=== PATIENT | female | born 1965 | race Caucasian/White ===

== ENCOUNTER 2016-08-27 10:51 | Outpatient (RCR) | payer MEDICARE, MEDICAID ==
[~2016-08-27] VITALS: Ht 157.5 cm; Wt 131.3 kg
[~2016-08-27 10:51] MED LIST: AC500T PO; ACHD5005 PO; ALPR1T PO; ARIP10TA2 PO; BSP5T PO; BUSP10TA95 PO; BUTA1CAP17 PO; BUTA1CAP39 PO; BUTA1TAB55 PO; CARI350T27 PO; CLN150C PO; CLON0.5T60 PO; COLE1TAB PO; CYCL10TA9 PO; D50KC PO; DESV100T PO; DESV50TA PO; DICL100G18 TOP; DIHY1SPR; DIPH1TAB25 PO; DIPH25CA79 PO; DULO30CA PO; DZPM2T PO; EST.625T PO; FENT1PAT9 TD; FURO20TA4 PO; FURO40TA4 PO; GABA600T2 PO; GABA800T PO; GABA800T2 PO; GBPN100C PO; HYDR-34 PO; HYDR-3454 PO; HYDR1TAB PO; HYDR1TAB66 PO; HYOS0.1216 PO; HYOS0.1217 PO; IBP800T PO; LD5PT TOP; LIPA1CAP4 PO; METH10TA3 PO; METH20TA PO; MILN1TAB PO; MUPI1OIN5 NS; NAPR-243 PO; NARA2.5T2 PO; NF-ESOM40C PO; NITR-65 PO; OMEP20TA2 PO; ONDA4TAB8 PO; ONDA8TAB13 PO; ONDAN4ODT PO; PHEN37.555 PO; PNT40TEC PO; PREG50C PO; PRM25T PO; PROM12.59 PO; PROM25TA14 PO; PROP120C3 PO; SMTR6KT.5 SQ; SUMA6KIT2; SUMA6NDL SQ; TIZA4TAB3 PO; TIZA4TAB55 PO; TPR100T PO; TPR25T PO; TRM50T PO; VERA180C2 PO
--- OUTSIDE RECORDS SUMMARY | 2016-08-27 10:57 | XMS REPORT | Continuity of Care Document ---
Author Author [facility] Address Unknown Phone Unavailable Support Name Relationship Address Phone , Mayra Barrett ECON Unknown [phone] Active Allergies and Adverse Reactions Allergen Noted Date Severity Reactions Comments Adhesive Tape 06/14/2014 Itching Any adhesive products cause itching,rash and swelling and infection Bactrim 11/16/2012 Nausea And Vomiting, Swelling Ritalin 06/14/2014 Other (See Comments) Heart palpatations Sulfa Antibiotics 11/16/2012 Nausea And Vomiting Tetanus Toxoids 11/16/2012 Swelling Tramadol 06/14/2014 Other (See Comments) Stomach and esophagus ulcers Wellbutrin 06/14/2014 Other (See Comments) Severe migraine and dehydration Current Medications Prescription Sig. Disp. Refills Start End Date Status Date furosemide (LASIX) 20 MG take 1 tablet (20MG) by 0 04/28/20 Active tablet oral route every day 13 take on M, W, FR gabapentin (NEURONTIN) take 1 tablet (600MG) by 0 04/28/20 Active 600 MG tablet oral route 3 times every 13 day promethazine (PHENERGAN) Take 1/2 tablet every 6 30 tablet 1 06/23/20 Active 25 MG tablet hours as needed for nausa 13 esomeprazole (NEXIUM) 40 Take 40 mg by mouth every Active MG capsule morning before breakfast. hydrocodone-acetaminophen Take 1 tablet by mouth Active (NORCO) 5-325 MG every 6 (six) hours as needed. carisoprodol (SOMA) 350 Take 350 mg by mouth 3 Active MG tablet (three) times daily. metoclopramide (REGLAN) Take 10 mg by mouth 3 Active 10 MG tablet (three) times daily. ergocalciferol (VITAMIN Take 50,000 Units by Active D) 05688 UNITS capsule mouth once a week. dihydroergotamine One spray each nostril as 8 mL 2 08/02/20 Active (MIGRANAL) 4 MG/ML nasal needed for headache march 21 spray repeat in 15 mins as needed, do not exceed 6 sprays in 24 hours fentaNYL (DURAGESIC) 25 Place 1 patch onto the Active MCG/HR skin every third day. busPIRone (BUSPAR) 10 MG Take 10 mg by mouth 6 Active tablet (six) times daily. lidocaine (LMX) 4 % cream Apply to affected area 30 g 1 02/28/20 Active BID PRN for pain 15 propranolol (INDERAL LA) TAKE ONE TABLET BY MOUTH 30 capsule 1 Active 80 MG 24 hr capsule DAILY 15 ondansetron (ZOFRAN-ODT) Take 1 tablet (8 mg 30 tablet 2 06/25/20 Active 8 MG disintegrating total) by mouth every 8 15 tablet (eight) hours as needed for Nausea. VOLTAREN 1 % GEL gel APPLY TO AFFECTED AREA 100 g 0 10/28/20 Active FOUR TIMES DAILY 15 methylPREDNIsolone Take 6 tablets po first 21 tablet 0 12/11/19 Active (MEDROL DOSPACK) 4 MG day then decrease by 1 16 tablet tablet daily until finished. lidocaine (LIDODERM) 5 % APPLY ONE PATCH ONCE 30 patch 0 12/12/19 Active DAILY, REMOVE AFTER 12 16 HOURS DIRECTED colestipol (COLESTID) 1 G Take 1 g by mouth 2 (two) Active tablet times daily. duloxetine (CYMBALTA) 60 Take 60 mg by mouth 2 Active MG capsule (two) times daily. omeprazole (PRILOSEC) 40 Take 40 mg by mouth 2 Active MG capsule (two) times daily. SUMAtriptan Succinate INJECT 0.5ML AT ONSET OF 12 mL 1 05/04/20 Active Refill 6 MG/0.5ML SOCT HEADACHE-MAY REPEAT ONCE 16 IN 2 HOURS -MAX OF 6 PER WEEK naratriptan (AMERGE) 2.5 TAKE 1 TABLET BY MOUTH 20 tablet 0 07/27/20 Active MG tablet ONSET OF MIGRAINE MARCH 16 REPEAT IN 4 HOURS IF NEEDED Kkbubhgaaszpa-Ujwhpovrq-N Take 1 capsule by mouth 40 each 0 08/07/20 Active PAP (MIDRIN) 65-100-325 every 8 (eight) hours as 16 MG CAPS needed (for Headache). propranolol (INDERAL LA) TAKE 1 CAPSULE BY MOUTH 30 capsule 2 Active 120 MG 24 hr capsule EVERY DAY 16 butalbital-acetaminophen- TAKE 1 TABLET BY MOUTH 30 tablet 0 01/06/20 08/04/20 Discontin caffeine, FIORICET, EVERY 6 HOURS NEEDED 16 16 ued 50-325-40 mg (FIORICET) FOR HEADACHE per tab propranolol (INDERAL LA) TAKE 1 CAPSULE BY MOUTH 30 capsule 2 08/27/20 Discontin 120 MG 24 hr capsule EVERY DAY 16 16 ued butalbital-acetaminophen- TAKE 1 TABLET BY MOUTH 30 tablet 0 08/04/20 08/07/20 Discontin caffeine (FIORICET) EVERY 6 HOURS NEEDED 16 16 ued 50-325-40 MG per tab FOR HEADACHE Active Problems Problem Noted Date Intractable chronic migraine without aura 08/27/2015 Generalized osteoarthrosis, involving multiple sites Elevated sedimentation rate Myalgia and myositis Most Recent Encounters Date Type Specialty Providers Description 08/27/2016 Refill Neurology Berenice Oneill MD 08/26/2016 Telephone Neurology Valorie Cohen, VALVE MACHINE OPERATOR Question 08/10/2016 Telephone Neurology Valorie Cohen, VALVE MACHINE OPERATOR Clarification On Medication 08/05/2016 Telephone Neurology Luis Fernando Wen MA Question 08/04/2016 Refill Neurology Valorie Cohen, VALVE MACHINE OPERATOR 07/27/2016 [facility], [facility]base Scan 07/27/2016 Refill Neurology Valorie Cohen, VALVE MACHINE OPERATOR 07/22/2016 Office Visit Neurology Valorie Cohen, VALVE MACHINE OPERATOR Intractable chronic migraine without aura and without status migrainosus (Primary Dx); Myalgia and myositis; Generalized osteoarthrosis, involving multiple sites 07/22/2016 Office Visit Neurology Valorie Cohen, VALVE MACHINE OPERATOR Intractable chronic migraine without aura and without status migrainosus (Primary Dx) 06/02/2016 Telephone Neurology Valorie Cohen, VALVE MACHINE OPERATOR Question 05/29/2016 Refill Neurology Berenice Oneill MD Immunizations Name Dates Previously Given Next Due Influenza IIV3 PFree 08/30/2013, 09/08/2012 Influenza TIV (HX thru 08/18/2011 Aug 07 2010) Pneumococcal 02/21/2016, 09/10/2011 Polysaccharide (23-valent) Social History Tobacco Use Types Packs/Day Years Used Date Never Smoker Last Filed Vital Signs Vital Sign Reading Time Taken Blood Pressure 128/80 07/22/2016 2:27 PM CDT Pulse 120 12/24/2015 2:06 PM [facility] [facility] Temperature 36.5 C (97.7 F) 08/27/2015 3:42 PM CDT Respiratory Rate 18 11/16/2012 10:35 AM [facility] [employer] Height 1.575 m (5' 2") 08/27/2015 3:42 PM CDT Weight 134.265 kg (296 lb) 08/27/2015 3:42 PM CDT Body Mass Index 54.13 08/27/2015 3:42 PM CDT Oxygen Saturation - - Plan of Care Date Type Specialty Providers Description 10/21/2016 Appointment Neurology Valorie Cohne, VALVE MACHINE OPERATOR [address] [place] [address] [phone] (Fax) Health Maintenance Due Date Last Done Comments Hepatitis C Screening 1965 Tdap Vaccines 1976 Tetanus Vaccine (Td 1976 Booster) Cervical Cancer Screening 1986 Breast Cancer 07/30/2013 07/30/2011, 07/27/2011 Screening-Mammogram Colon Cancer 2015 Screening-Colonoscopy Influenza Vaccine (#1) 2016 08/30/2013, 09/08/2012, 08/18/2011 Zoster Vaccine 2025 Annual Wellness Visit 2030 Results from Last 3 Months Not on file
[2016-08-27 11:14] VITALS: BP 125/100
== END 2016-11-25 | disposition home or self-care (01) ==
LOC: SDC 10:51
PROVIDERS: ATTEND Internal Medicine
DX: Z45.2 Encounter for adjustment and management of vascular access device (principal)
CPT/HCPCS: 96523

== ENCOUNTER 2017-02-08 13:21 | Outpatient (RCR) | payer MEDICARE, MEDICAID ==
[2017-01-04 13:36] VITALS: BP 122/80
--- OUTSIDE RECORDS SUMMARY | 2017-01-05 08:24 | XMS REPORT | Continuity of Care Document ---
Author Author [facility] Organization [facility] Address Unknown Phone Unavailable Care Team Providers Care Solution Make Up Operator Name Role Phone LEV PEARSON MD PCP Insurance Providers Payer Name Policy Number Subscriber Name Relationship Wps Medicare [id number] Faiza Louis 18 Self / Same As Patient Sara [employer] [id number] Faiza Louis 18 Self / Same As Patient Advance Directives Directive Response Recorded Date/Time Advance Directives No 08/27/16 11:14am Health Care Power of Pipeline Superintendent No 08/27/16 11:14am Organ Donor Yes 08/27/16 11:14am Resuscitation Status Full Code 08/27/16 11:14am Problems Active Problems Medical Problem Onset Date Status Candidiasis of skin Unknown Acute Diarrhea Unknown Acute Intractable diarrhea Unknown Acute Medications Current Home Medications Medication Dose Units Route Directions Days/Qty Instructions Start Date Gabapentin 800 Mg 2,400 Mg Oral Bedtime TAKES 3 (800MG) TABLETS Furosemide (Lasix) 40 Mg 40 Mg Oral Wed, , 02/21/13 Lidocaine 1 Ea 1 Patch Topically Daily as needed for Pain WEARS FOR 12HOURS THEN OFF FOR 12 HOURS, WEARS DURING BEDTIME NEEDED FOR PAIN 10/20/13 Diphenoxylate Hcl/Atropine 1 Each 1 Tab Oral Three Times A Day as needed for Diarrhea 10/21/15 Carisoprodol 350 Mg 350 Mg Oral Three Times A Day as needed for Muscle Spasms 10/21/15 Tizanidine Hcl 4 Mg 8 Mg Oral Twice A Day TAKES 2 (4MG) TABLETS Naratriptan Hcl 2.5 Mg 2.5 Mg Oral As Directed as needed for Migraine 10/21/15 Buspirone Hcl 10 Mg 30 Mg Oral Twice A Day TAKES 3 (10MG) TABLETS Colestipol Hcl 1 Gm 1 Gm Oral Bedtime 10/21/15 Propranolol Hcl 120 Mg 120 Mg Oral Daily 10/21/15 Fentanyl 1 Each 50 Mcg Transderm Every 3 Days 10/21/15 Gabapentin 800 Mg 1,600 Mg Oral Daily TAKES 2 (800MG) TABLETS 10/21/15 Esomeprazole Magnesium 40 Mg 40 Mg Oral Daily 10/21/15 Promethazine Hcl (Phenergan Tablet) 25 Mg 25 Mg Oral Bedtime Lipase/Protease/Amylase 1 Each 24,000 Units Oral Three Times A Day 10/21/15 Ergocalciferol (Vitamin D2) 50,000 Unit 50,000 Units Oral Wednesdays10/21/15 Sumatriptan Succinate 6 Mg/0.5 Ml As Directed as needed for Migraine 10/21/15 Ondansetron 8 Mg 8 Mg Oral Three Times A Day as needed for Nausea Diclofenac Sodium 100 Gm Topically Four Times Daily as needed for Pain 10/21/15 Diphenhydramine Hcl 25 Mg 25 Mg Oral Bedtime as needed for Migraine 10/21/15 Butalbital/Aspirin/Caffeine 1 Each 1 Cap Oral Every 6 Hours as needed for Migraine 10/21/15 Past Home Medications Medication Directions Ordered Status Sumatriptan Succinate 6 Mg/0.5 Ml Ndl.fr.inj, 6 Mg Sub-Q Once May Repeat Once as needed for Migraine 11/21/11 Discontinued Duloxetine Hcl 30 Mg Capsule., 1 Tab Oral Bedtime 11/21/11 Discontinued Gabapentin 600 Mg Tablet, 800 Mg Oral Three Times A Day 11/21/11 Discontinued Gabapentin 100 Mg Cap, 100 Mg Oral Three Times A Day 11/21/11 Discontinued Alprazolam 1 Mg Tablet, 1 Tab Oral Three Times A Day And Prn 11/21/11 Discontinued Phentermine Hcl 37.5 Mg Capsule, 37.5 Mg Oral Daily 11/21/11 Discontinued Tizanidine Hcl 4 Mg Tablet, 4 Mg Oral Three Times A Day as needed for Muscle Spasms 11/21/11 Discontinued Topiramate 25 Mg Tablet, 100 Mg Oral Twice A Day 11/21/11 Discontinued Furosemide (Lasix) 20 Mg Tablet, 2 Each Oral Daily And Prn 11/21/11 Discontinued Promethazine Hcl 12.5 Mg Tablet, 25 Mg Oral Q 6 Prn 11/21/11 Discontinued Butalb/Acetaminophen/Caffeine (Esgic Plus) 1 Each Tablet, 1 - 2 Each Oral Q 4 - 6 Hr Prn 11/22/11 Discontinued Pregabalin 50 Mg Cap, 50 Mg Oral Twice A Day 01/20/12 Discontinued Desvenlafaxine Succinate 100 Mg Tab.sr.24h, 100 Mg Oral Daily 03/31/12 Discontinued Butalb/Acetaminophen/Caffeine (Esgic Plus) 1 Each Tablet, 1 Each Oral Q4hr Prn 06/03/12 Discontinued Topiramate 25 Mg Tab, 100 Mg Oral Twice A Day 06/16/12 Discontinued Diazepam 2 Mg Tab, 2 Mg Oral Four Times Daily 06/17/12 Discontinued Milnacipran Hcl 1 Each Tab.ds.pk, 100 Mg Oral Three Times A Day 11/10/12 Discontinued Dihydroergotamine Mesylate 6 Ml Ethel.pump, 1 Ethel Nasal for Migraine Discontinued Ibuprofen 800 Mg Tab, 800 Mg Oral Give Every 8 Hrs On Schedule as needed 12/21 Discontinued Acetaminophen/Hydrocodone Bitart 1 Each Tablet, 1 - 2 Each Oral Q4hr Prn 03/20 Discontinued Topiramate 100 Mg Tab, 100 Mg Oral Twice A Day 02/21/13 Discontinued Ibuprofen 800 Mg Tab, 800 Mg Oral Every 8HRS as needed 02/21/13 Discontinued Verapamil Hcl (Verelan Sr) 180 Mg Cap24h.pel, 180 Mg Oral Daily 02/21/13 Discontinued Mupirocin Calcium 1 Gm Oint..gm., 0 Nasal Twice A Day 02/22/13 Discontinued Naproxen 500 Mg Tablet, 1 Each Oral Three Times A Day And Prn 04/22/13 Discontinued Estrogens Conjugated 0.625 Mg Tablet, 1 Tab Oral Daily 08/14/13 Discontinued Methylphenidate Hcl 10 Mg Tablet, 10 Mg Oral Twice A Day 08/14/13 Discontinued Methylphenidate Hcl 20 Mg Tablet, 20 Mg Oral Daily 08/14/13 Discontinued Tramadol Hcl 50 Mg Tab, 50 Mg Oral Q4-6HOURS as needed 08/15/13 Discontinued Sumatriptan Succinate 6 Mg/0.5 Ml Kit, 6 Mg Sub-Q Daily as needed for Migraine 08/29/13 Discontinued Hyoscyamine Sulfate (Levsin) 0.125 Mg/Tab Tab.rapdis, 1 - 2 Each Oral Q4hr Prn 08/29/13 Discontinued Nitrofurantoin Macrocrystals 100 Mg Capsule, 1 Each Oral Twice A Day Discontinued Pantoprazole Sodium 40 Mg Tablet.dr, 1 Tab Oral Daily 08/29/13 Discontinued Ondansetron Hcl 4 Mg Tab, 4 Mg Oral Every 4HRS 08/29/13 Discontinued Acetaminophen/Hydrocodone Bitart 1 Each Tablet, 1 Tab Oral Every 8HRS as needed for Pain 10/20/13 Discontinued Omeprazole 20 Mg Tablet.dr, 20 Mg Oral Bedtime 10/20/13 Discontinued Esomeprazole Magnesium 40 Mg Capsule.dr, 40 Mg Oral Daily 10/20/13 Discontinued Desvenlafaxine Succinate 50 Mg Tab.sr.24h, 50 Mg Oral Bedtime 10/20/13 Discontinued Hydrocodone Bit/Acetaminophen 1 Each Tablet, 1-2 Each Oral Every 4HRS as needed for Pain 10/24/13 Discontinued Clindamycin Hcl 150 Mg Cap, 150 Mg Oral Three Times A Day 11/21/13 Discontinued Promethazine Hcl 25 Mg Tab, 25 Mg Oral Bedtime 11/22/13 Discontinued Promethazine Hcl 25 Mg Tab, 25 Mg Oral Every 6 Hours as needed for Nausea Discontinued Acetaminophen 500 Mg Tablet, 500-1000 Mg Oral as needed for Pain 11/22/13 Discontinued Cyclobenzaprine Hcl (Flexeril) 10 Mg Tablet, 10 Mg Oral Every 6 Hours as needed for Muscle Spasms 02/24/14 Discontinued Ondansetron 4 Mg/Udtablet Tab.rapdis, 4 Mg Oral As Needed for Nausea Discontinued Hydrocodone Bit/Acetaminophen 1 Each Tablet, 1-2 Each Oral Q4 - 6H as needed for Pain 04/04/14 Discontinued Buspirone Hcl 5 Mg Tablet, 5 Mg Oral Twice A Day 07/30/14 Discontinued Hyoscyamine Sulfate 0.125 Mg Tab, 1 Each Oral Q6hr Prn as needed for Nausea 10/15/14 Discontinued Butalb/Acetaminophen/Caffeine 1 Each Capsule, 1 Each Oral 10/21/15 Discontinued Social History Social History Problem Response Recorded Date/Time Alcohol Use Denies Use 10/21/2015 1:55am Recreational Drug Use No 10/21/2015 1:55am Recent Foreign Travel No 02/24/2014 2:44am Hospitalization with Isolation Denies 03/01/2014 2:47pm Sexually Transmitted Disease No 10/21/2015 1:55am HIV/AIDS No 10/21/2015 1:55am Do you dip or chew tobacco? No 12/12/2015 10:10am Sexually Transmitted Disease No 10/21/2015 1:55am Hospitalization with Isolation Denies 03/01/2014 2:47pm Hx Sexually Transmitted Disorders No 04/04/2014 11:35am Hospital Discharge Instructions No hospital discharge instructions. Plan of Care Prescriptions See Medication Section Functional Status No functional status results. Allergies, Adverse Reactions, Alerts Allergen Type Severity Reaction Status Last Updated bupropion HCl Allergy Unknown HIVES Active 02/24/14 Sulfa (Sulfonamide Antibiotics) ([id number]) Allergy Mild Active Tetanus Vaccines & Toxoid ([id number]) Adverse Reaction Unknown Active 02/24/14 sulfamethoxazole ([id number]) Allergy Unknown BREAKS OUT Active 02/24/14 Trimethoprim Allergy Unknown BREAKS OUT Active 02/24/14 TAPE Allergy Unknown BREAKS OUT Active 02/24/14 Immunizations No immunization records. Vital Signs Acute Vital Signs Vital Response Date/Time Height 5 ft 2 in Weight 289 lb Body Mass Index 52.9 kg/m^2 Results No known relevant diagnostic tests, laboratory data and/or discharge summary. Procedures No known history of procedures. Encounters Encounter Location Arrival/Admit Date Discharge/Depart Date Attending Provider Discharged Recurring [facility] 08/27/16 10:51am 11:59pm LEV PEARSON MD
[~2017-02-08] VITALS: Ht 157.5 cm; Wt 90.9 kg
== END 2017-04-04 | disposition home or self-care (01) ==
LOC: SDC 13:21
PROVIDERS: ATTEND Internal Medicine
DX: Z45.2 Encounter for adjustment and management of vascular access device (principal)
CPT/HCPCS: 96523

== ENCOUNTER → 2017-04-29 | Outpatient (CLI) | payer MEDICARE, MEDICAID ==
[~2017-04-29] MED LIST changes: -D50KC PO; +ERGO50006 PO
== END ==
LOC: SLEEP 14:00
PROVIDERS: ATTEND Nurse Practitioner
DX: G47.36 Sleep related hypoventilation in conditions classified elsewhere (principal); R06.83 Snoring

== ENCOUNTER → 2017-11-11 | Outpatient (CLI) | payer MEDICARE, MEDICAID ==
--- NOTE | 2017-11-11 18:21 | Diagnostic Imaging Report ---
EXAMINATION: Digital mammogram bilateral screening. INDICATION: Screening. COMPARISON: This study was compared to the prior exams of 07/04/2015 and 05/29/2013. At this time, there are no current complaints. The current study was also evaluated with a Computer Aided Detection (CAD) system. FINDINGS: The breasts do seem smaller than noted on the prior exam. According to the patient's questionnaire, she has lost 145 pounds since the prior study. There are scattered fibroglandular densities in both breasts which could obscure a lesion. Overall, there does not appear to have been any adverse change. There is no primary or secondary sign of malignancy noted. IMPRESSION: There is no evidence of malignancy. ACR BI-RADS Category 1: Negative. Result letter will be mailed to the patient. Note: At least 10% of breast cancer is not imaged by mammography. Dictated by: Dictated on workstation # [id number]
== END ==
LOC: RAD 09:01
PROVIDERS: ATTEND Nurse Practitioner Family
DX: Z12.31 Encounter for screening mammogram for malignant neoplasm of breast (principal)
CPT/HCPCS: 77067

== ENCOUNTER 2018-01-13 05:45 | Outpatient (CLI) | payer MEDICARE, MEDICAID ==
[~2018-01-13] VITALS: Ht 157.5 cm; Wt 90.9 kg
[2018-01-13] MEDS ORDERED: MIDO2.5T PO (10:38)
[2018-01-13] MEDS ORDERED: OXYC-529 PO (10:38)
[2018-01-13] MEDS ORDERED: MIRA50TA PO (10:38)
[2018-01-13] MEDS ORDERED: FENT1PAT57 TD (10:38)
[2018-01-13] MEDS ORDERED: DOXE50CA3 PO (10:38)
[2018-01-13] MEDS ORDERED: OMEP20CA12 PO (10:38)
[2018-01-13] MEDS ORDERED: DULO60CA58 PO (10:38)
[2018-01-13] MEDS ORDERED: PANT40TA3 PO (10:38)
[2018-01-14] MEDS ORDERED: OXYC-197 PO (10:14)
== END 2018-01-13 11:12 ==
LOC: PREOP 05:45
PROVIDERS: ATTEND Surgery
DX: Z01.818 Encounter for other preprocedural examination (principal)

== ENCOUNTER 2018-01-14 08:27 | Day surgery (SDC) | payer MEDICARE, MEDICAID ==
--- NOTE | 2018-01-13 15:47 | History & Physicial ---
History of Present Illness History of Present Illness Reason for visit/HPI to undergo removal of a nonfunctioning port Date of Admission 01/14/18 Date Seen by Provider: Jan 13, 2018 Time Seen by Provider: 15:45 I consulted on this patient on 01/13/18 15:45 Attending Physician Isabel Brady MD Admitting Physician Sin Miranda MD Consult Allergies and Home Medications Allergies Coded Allergies: Sulfa (Sulfonamide Antibiotics) (Verified Allergy, Mild, 01/13/18) adhesive (Verified Allergy, Mild, RASH, 01/13/18) bupropion HCl (Verified Allergy, Unknown, HIVES, 01/13/18) sulfamethoxazole (Verified Allergy, Unknown, BREAKS OUT, 01/13/18) trimethoprim (Verified Allergy, Unknown, BREAKS OUT, 01/13/18) Tetanus Vaccines and Toxoid (Verified Adverse Reaction, Unknown, 01/13/18) Home Medications Doxepin HCl 50 Mg Capsule, 50 MG PO HS, (Reported) Duloxetine HCl 60 Mg Capsule.dr, 60 MG PO BID, (Reported) Fentanyl 1 Each Patch.td72, 25 MCG TD Q72H, (Reported) Midodrine HCl 2.5 Mg Tablet, 2.5 MG PO TID, (Reported) Mirabegron 50 Mg Tab.er.24h, 50 MG PO DAILY, (Reported) Omeprazole 20 Mg Capsule.dr, 20 MG PO BID, (Reported) Oxycodone HCl 5 Mg Tablet, 5 MG PO TID, (Reported) Pantoprazole Sodium 40 Mg Tablet.dr, 40 MG PO DAILY, (Reported) Tizanidine HCl 4 Mg Tablet, 8 MG PO BID, (Reported) TAKES 2 (4MG) TABLETS Patient Home Medication List Home Medication List Reviewed: Yes Past Npsnige-Emvurn-Iyjupt Hx Patient Social History Recent Hopitalizations: No Immunizations Up To Date Tetanus Booster (TDap): Unknown Date of Pneumonia Vaccine: Feb 07, 2016 Date of Influenza Vaccine: Aug 17, 2016 Seasonal Allergies Seasonal Allergies: No Surgeries Yes Respiratory No Reproductive System Hx Reproductive Disorders: No Sexually Transmitted Disease: No HIV/AIDS: No 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 Gastrointestinal Ulcer, Gall Bladder Disease, Irritable Bowel Musculoskeletal Degenerate Disk Disease, Arthritis, Fibromyalgia, Chronic Back Pain HEENT Loss of Vision: Bilateral Hearing Impairment: Denies Psychosocial Behavioral Health Disorders: Anxiety, PTSD, Depression Family Medical History Family Hx: Cancer 03 MOTHER Family history: Allergy 03 MOTHER Family history: Diabetes mellitus 03 FATHER AUNT Family history: Hypertension 03 FATHER 09 BROTHER Family history: Thyroid disorder 03 MOTHER Heart disease 03 FATHER Hypercholesterolemia 03 FATHER 03 MOTHER 09 BROTHER 09 BROTHER 09 BROTHER 09 BROTHER Myocardial infarction GRANDFATHER Constitutional: no symptoms reported EENTM: no symptoms reported Respiratory: no symptoms reported Cardiovascular: no symptoms reported Gastrointestinal: no symptoms reported Genitourinary: no symptoms reported Musculoskeletal: back pain Skin: no symptoms reported Psychiatric/Neurological: Anxiety Physical Exam Vital Signs Capillary Refill : General Appearance: No Apparent Distress Neck: Normal Inspection Respiratory: Lungs Clear Cardiovascular: Regular Rate, Rhythm Neurologic/Psychiatric: Oriented x3 Assessment/Plan Assessment and Plan lady with a nonfunctioning port. Removal under sedation with a local anesthetic Problems: Admission Diagnosis Admission Status: Other ISABEL BRADY MD Jan 13, 2018 3:47 pm
[~2018-01-14] VITALS: Ht 157.5 cm; Wt 90.9 kg
[~2018-01-14 08:27] MED LIST changes: +DOXE50CA3 PO; +DULO60CA58 PO; +FENT1PAT57 TD; +MIDO2.5T PO; +MIRA50TA PO; +OMEP20CA12 PO; +OXYC-529 PO; +PANT40TA3 PO
[2018-01-14] MEDS ORDERED: BUP/EPI 0.5% 1:200,000 (SENSORCAINE) 30 ML VIAL ONE (08:46)
[2018-01-14] MEDS ORDERED: FAMOTIDINE 20MG/2ML IV (PEPCID) IV ONE (09:00)
[2018-01-14] MEDS ORDERED: ONDANSETRON 4 MG/2 ML (SDV) Z0FRAN IV ONE (09:00)
[2018-01-14 09:27] VITALS: BP 135/89
[2018-01-14] MEDS ORDERED: proPOfol 200 MG/20 ML (DIPRIVAN) VIAL IV ONE (09:28)
[2018-01-14] MEDS ORDERED: MIDAZOLAM 2 MG/2 ML (VERSED) VIAL ONE (09:28)
[2018-01-14] MEDS ORDERED: ceFAZolin 2 GM/50 ML PRE-MIX IVPB IV ONE (09:30)
--- NOTE | 2018-01-14 09:33 | Progress Note-Pre Operative ---
Pre-Operative Progress Note H&P Reviewed The H&P was reviewed, patient examined and no changes noted. Date Seen by Provider: Jan 14, 2018 Time Seen by Provider: 09:33 Date H&P Reviewed: Jan 14, 2018 Time H&P Reviewed: 09:33 Pre-Operative Diagnosis: Nonfunctioning port ISABEL BRADY MD Jan 14, 2018 9:33 am
--- NOTE | 2018-01-14 10:13 | Operative Report ---
Operative Report Date of Procedure/Surgery Jan 14, 2018 Surgeon (s) ISABEL BRADY MD Lip And Gate Builder (s): N/A Post-Operative Diagnosis Same Procedure Performed Removal of [id number] Description of Procedure Anesthesia Type: MAC Estimated blood loss (mL): Minimal Specimen(s) collected/removed None Description of the Procedure Indication for procedure: This lady came in to have a nonfunctioning Infuse-a- Port removed. Pump consent was obtained after reviewing the procedure in detail. Description of the procedure: She was placed supine on the operative table and our PRIVATE TUTOR administered sedation, monitoring her vital signs. 2 g of Ceftin were administered intravenously as prophylaxis against wound infection. Left infraclavicular fossa was prepared and draped in the usual sterile manner. Local anesthesia was achieved using 0.5 percent Marcaine with epinephrine. A secondary incision was made along the previous scar and [id number] removed without risking air embolism. Incision was closed using 3-0 Vicryl for the subcutaneous tissue and 4-0 Vicryl for skin, in a subcuticular fashion. She tolerated the procedure well and was taken to the nursing area in stable condition. Findings of the Procedure See op report Allergies and Home Medications Allergies Coded Allergies: Sulfa (Sulfonamide Antibiotics) (Verified Allergy, Mild, 01/13/18) adhesive (Verified Allergy, Mild, RASH, 01/13/18) bupropion HCl (Verified Allergy, Unknown, HIVES, 01/13/18) sulfamethoxazole (Verified Allergy, Unknown, BREAKS OUT, 01/13/18) trimethoprim (Verified Allergy, Unknown, BREAKS OUT, 01/13/18) Tetanus Vaccines and Toxoid (Verified Adverse Reaction, Unknown, 01/13/18) Home Medications Doxepin HCl 50 Mg Capsule, 50 MG PO HS, (Reported) Duloxetine HCl 60 Mg Capsule.dr, 60 MG PO BID, (Reported) Fentanyl 1 Each Patch.td72, 25 MCG TD Q72H, (Reported) Midodrine HCl 2.5 Mg Tablet, 2.5 MG PO TID, (Reported) Mirabegron 50 Mg Tab.er.24h, 50 MG PO DAILY, (Reported) Omeprazole 20 Mg Capsule.dr, 20 MG PO BID, (Reported) Oxycodone HCl 5 Mg Tablet, 5 MG PO TID, (Reported) Pantoprazole Sodium 40 Mg Tablet.dr, 40 MG PO DAILY, (Reported) Tizanidine HCl 4 Mg Tablet, 8 MG PO BID, (Reported) TAKES 2 (4MG) TABLETS Patient Home Medication List Home Medication List Reviewed: Yes ISABEL BRADY MD Jan 14, 2018 10:13 am
[2018-01-14] MEDS ORDERED: OXYC-197 PO (10:14)
--- NOTE | 2018-01-14 10:15 | Discharge Inst-Simple/Standard ---
Discharge Inst-Standard Discharge Medications New, Converted or Re-Newed RX: RX on Chart Patient Instructions/Follow Up Plan of Care/Instructions/FU: Dressings off in 48 hours Activity as Tolerated: Yes Discharge Diet: No Restrictions ISABEL BRADY MD Jan 14, 2018 10:15 am
[2018-01-14] MEDS ORDERED: morphine INJ 10 MG/ML 1ML (SYR OR VIAL) IVP PRN (10:30)
[2018-01-14] MEDS ORDERED: ONDANSETRON 4 MG/2 ML (SDV) Z0FRAN IVP PRN (10:30)
[2018-01-14 10:50] VITALS: BP 135/82
[2018-01-14 11:20] VITALS: BP 121/82
[2018-01-14 11:50] VITALS: BP 117/78
[2018-01-14 12:05] VITALS: BP 117/78
[2018-01-14] MEDS ORDERED: LACTATED RINGERS 1,000 ML IV PRN (14:39)
--- NOTE | 2018-01-14 15:02 | Anesthesia-General Post-Op ---
General Patient Condition Mental Status/LOC: Same as Preop Cardiovascular: Satisfactory Nausea/Vomiting: Absent Respiratory: Satisfactory Pain: Controlled Complications: Absent Post Op Complications Complications None Follow Up Care/Instructions Patient Instructions None needed. Anesthesia/Patient Condition Patient Condition Patient is doing well, no complaints, stable vital signs, no apparent adverse anesthesia problems. No complications reported per nursing. CAIT CHAPMAN CRNA Jan 14, 2018 15:02
--- OUTSIDE RECORDS SUMMARY | 2018-01-16 04:01 | XMS REPORT ---
Author Author LEV PEARSON [facility] Address [address] [place] [address] Care Team Providers Care Traffic Enumerator Name Role Phone LEV PEARSON Unavailable PROBLEMS Type Condition ICD9-CM Code [id number] Code Onset Dates Condition Status SNOMED Code Problem Migraine without aura and without status migrainosus, not intractable G43.009 Active 747669684 Problem IBS (irritable bowel syndrome) K58.9 Active 61459954 Problem Intractable migraine without aura and with status migrainosus G43.011 Active 910617231 Problem History of bariatric surgery Z98.84 Active 222288679 Problem Chronic pain G89.29 Active 96481480 Problem Arthritis M19.90 Active 8141437 Problem Mixed hyperlipidemia E78.2 Active 386851185 Problem Chronic fatigue R53.82 Active 71885924 ALLERGIES Substance Reaction Event Type Date Status Adhesive Tape Unknown Drug Allergy March, Active Tetanus Unknown Drug Allergy March, Active Wellbutrin Unknown Drug Allergy March, Active Sulfamethoxazole-Trimethoprim Unknown Drug Allergy March, Active Heparin Lock Flush Unknown Drug Allergy March, Active Shrimp Unknown Non Drug Allergy March, Active Dust Mite Unknown Non Drug Allergy March, Active Cockroach Feces Unknown Non Drug Allergy March, Active SOCIAL HISTORY Never Assessed PLAN OF CARE Activity Details Follow Up Regular appt Reason: VITAL SIGNS Height 62 in 2017-03-30 Weight 238 lbs 2017-03-30 Temperature 98.0 degrees Fahrenheit 2017-03-30 Heart Rate 78 bpm 2017-03-30 Respiratory Rate 18 2017-03-30 BMI 43.53 kg/m2 2017-03-30 Blood pressure systolic 112 mmHg 2017-03-30 Blood pressure diastolic 78 mmHg 2017-03-30 MEDICATIONS Medication Instructions Dosage Frequency Start Date End Date Duration Status Myrbetriq 50 MG Orally Once a day 1 tablet 24h Active buspirone 10 mg 1 Tablet by Oral route 6 times per day Dec, Active Lomotil 2.5-0.025 MG Orally Four times a day 1 tablet as needed 6h 16 Aug, 2015 Active Tizanidine HCl 4 MG Orally every 8 hrs 2 capsule as needed 8h 30 Sep, 2015 Active Sumavel DosePro 6 mg/0.5 mL inject 6 mg by subcutaneous route once; may be repeated 1 hour after the first dose if headache pain returns or increases in severity; do not exceed 2 doses within 24 hours Nov, Active Amerge 2.5 MG Orally Once a day 1 tablet as needed one time 24h Active Doxepin HCl 50 MG TAKE 1 CAPSULE BY MOUTH AT BEDTIME 30 Active Zofran ODT 8 mg 04 Sep, 2013 Active Cymbalta 60 mg Orally twice a day 1 capsule 12h March, Active Voltaren 1 % 1 Application by Topical route 4 times per day Aug, Active Fentanyl 50 MCG/HR Transdermal every 72 hours 1 patch to skin March, 30 days Active Phenergan 25 MG 1 tablet by Oral route 1 time per day PRN at hs Active Nexium 40 MG Orally Once a day TAKE 1 CAPSULE 24h Active Vitamin D2 50,000 unit take 1 capsule (50,000 unit) by oral route once weekly for 12 weeks Aug, Active Furosemide 20 Orally Once a day prn 2 tablet Active RESULTS No Results PROCEDURES Procedure Date Ordered Result Body Site PHENERGAN (IM) 25 MG (25 MG/ML) March 30, 2017 THER/PROPH/DIAG INJ, SC/IM March 30, 2017 [facility] VISIT ESTABLISHED PATIENT March 30, 2017 TORADOL (IM) 60 MG/2ML (UP TO 15 MG) March 30, 2017 IMMUNIZATIONS Vaccine Route Administration Date Status PHENERGAN (IM) 25 MG (25 MG/ML) IM Intramuscular March 30, 2017 Administered TORADOL (IM) 60 MG/2ML (UP TO 15 MG) IM Intramuscular March 30, 2017 Administered MEDICAL (GENERAL) HISTORY Type Description Date Medical History Sleep Apnea- uses cpap with 7 liters 02 plus addition 2l/nc at night Medical History GERD Medical History Irrital bowel syndrome Medical History Hx rectal fistula Medical History Obesity Medical History Arthritis Medical History Migraines Medical History chronic pain Medical History Muscle spasms Medical History depression Medical History Anxiety Medical History Edema Medical History Gastric Sleeve Surgical History Appendectomy 1976 Surgical History Ovarian cyst removal with appendix 1976 Surgical History bladder tie up at [facility] 09/09/2011 Surgical History Tubal ligation 04/2004 Surgical History Hysterectomy 09/09/2011 Surgical History Gastric Sleeve 02/2016 Hospitalization History Past surgeries Hospitalization History Dehydration/Observation 10/2015
--- OUTSIDE RECORDS SUMMARY | 2018-01-16 04:01 | XMS REPORT | Clinical Summary ---
Author Author [facility] Organization [facility] Address Unknown Phone Unavailable Care Team Providers Care Staff Climate Scientist Name Role Phone Logan Brandon MD Unavailable Valorie Cohen WARP SPLITTER Unavailable Sin Miranda MD PP Allergies Active Allergy Reactions Severity Noted Date Comments Adhesive Tape Itching 06/14/2014 Any adhesive products cause itching,rash and swelling and infection Bactrim Nausea And Vomiting, 11/16/2012 Swelling Methylphenidate Other (See Comments) 06/14/2014 Heart palpatations Sulfa Antibiotics Nausea And Vomiting 11/16/2012 Tetanus Toxoids Swelling 11/16/2012 Tramadol Other (See Comments) 06/14/2014 Stomach and esophagus ulcers Bupropion Other (See Comments) 06/14/2014 Severe migraine and dehydration Current Medications Prescription Sig. Disp. Refills Start End Date Status Date ergocalciferol (VITAMIN Take 50,000 Units by Active D) 59172 UNITS capsule mouth once a week. Reported on 09/16/2016 fentaNYL (DURAGESIC) 25 Place 1 patch onto the Active MCG/HR skin every third day. Reported on 09/16/2016 busPIRone (BUSPAR) 10 MG Take 10 mg by mouth 6 Active tablet (six) times daily. Reported on 09/16/2016 duloxetine (CYMBALTA) 60 Take 60 mg by mouth 2 Active MG capsule (two) times daily. diphenoxylate-atropine Take 1 tablet by mouth 4 Active (LOMOTIL) 2.5-0.025 MG (four) times daily as per tablet needed for Diarrhea. mirabegron (MYRBETRIQ) 50 Take 50 mg by mouth Active MG TB24 daily. tiZANidine (ZANAFLEX) 4 Take 4 mg by mouth every Active MG tablet 6 (six) hours as needed (muscle spasms). ondansetron (ZOFRAN-ODT) TAKE 1 TABLET UNDER 30 tablet 3 11/19/19 Active 8 MG disintegrating TONGUE EVERY 6 HOURS 17 tablet NEEDED FOR NAUSEA cycloSPORINE (RESTASIS) Place 1 drop into both Active 0.05 % ophthalmic eyes 2 (two) times daily. emulsion VOLTAREN 1 % gel APPLY TO AFFECTED AREA 100 g 0 06/15/20 Active FOUR TIMES DAILY 17 omeprazole (PRILOSEC) 40 Take 40 mg by mouth 2 Active MG capsule (two) times daily. metoclopramide (REGLAN) Take 10 mg by mouth 3 Active 10 MG tablet (three) times daily. SUMAtriptan (IMITREX) 6 INJECT 0.5ML AT ONSET OF 0.5 mL 1 10/05/20 Active MG/0.5ML injection HEADACHE-MAY REPEAT ONCE 17 IN 2 HOURS -MAX OF 6 PER WEEK naratriptan (AMERGE) 2.5 TAKE 1 TABLET BY MOUTH AT 20 tablet 1 Active MG tablet ONSET OF MIGRAINE -MARCH 24 REPEAT IN 4 HOURS IF NEEDED Active Problems Problem Noted Date Intractable chronic migraine without aura 08/27/2015 Generalized osteoarthrosis, involving multiple sites Elevated sedimentation rate Myalgia and myositis Encounters Date Type Specialty Care Team Description 12/15/2017 [facility] 12/09/2017 Office Visit Logan Brandon MD Chronic migraine (Primary Dx) from Last 3 Months Immunizations Name Dates Previously Given Next Due Influenza IIV3 PFree 08/30/2013, 09/08/2012 Influenza TIV (HX thru 08/18/2011 Aug 07 2010) Pneumococcal 02/21/2016, 09/10/2011 Polysaccharide (23-valent) Family History Medical History Relation Name Comments Other Other Family History Comments - Hx of ovarian cancer: Maternal aunt, Hx of endometrial cancer: Paternal grandmother Relation Name Status Comments Other Social History Tobacco Use Types Packs/Day Years Used Date Never Smoker Sex Assigned at Date Recorded Not on file Last Filed Vital Signs Vital Sign Reading Time Taken Blood Pressure 105/70 09/16/2016 12:03 PM AREA SALES MANAGER Pulse 120 12/24/2015 2:06 PM AREA SALES MANAGER Temperature 36.5 C (97.7 F) 08/27/2015 3:42 PM CDT Respiratory Rate 18 11/16/2012 10:35 AM AREA SALES MANAGER Oxygen Saturation - - Inhaled Oxygen - - Concentration Weight 105.9 kg (233 lb 8 oz) 09/16/2016 12:03 PM AREA SALES MANAGER Height 157.5 cm (5' 2") 08/27/2015 3:42 PM CDT Body Mass Index 42.71 09/16/2016 12:03 PM AREA SALES MANAGER Plan of Treatment Date Type Specialty Care Team Description 03/03/2018 Office Visit Logan Brandon MD [address] [place] [address] Health Maintenance Due Date Last Done Comments Hepatitis C Screening 1965 DTaP,Tdap,and Td Vaccines 1984 (1 - Tdap) CERVICAL CANCER SCREENING 1986 Breast Cancer 2015 07/30/2011, 07/27/2011 Screening-Mammogram Colon Cancer Screening 2015 Influenza Vaccine (#1) 2017 08/30/2013, 09/08/2012, 08/18/2011 Results Not on filefrom Last 3 Months
--- OUTSIDE RECORDS SUMMARY | 2018-01-16 04:01 | XMS REPORT | Encounter Summary ---
Author Author [facility] Address Unknown Phone Unavailable Care Team Providers Care Staff Services Manager Name Role Phone Logan Brandon MD Unavailable Valorie Cohen LEGAL SECRETARY RECEPTIONIST Unavailable Sin Miranda MD PCP Encounter Details Date Type Department Care Team Description 12/15/2017 [facility] MULTIPLE TESTS Link, Onbase Scan [place], [place] Social History Tobacco Use Types Packs/Day Years Used Date Never Smoker Sex Assigned at Date Recorded Not on file as of this encounter Plan of Treatment Date Type Specialty Care Team Description 03/03/2018 Office Visit Neurology Logan Brandon MD [address] [place] [address] as of this encounter Visit Diagnoses Not on filein this encounter
--- OUTSIDE RECORDS SUMMARY | 2018-01-16 04:01 | XMS REPORT | Encounter Summary ---
Author Author [facility] Address Unknown Phone Unavailable Care Team Providers Care Customer Relations Coordinator Name Role Phone Logan Brandon MD Unavailable Valorie Cohen LUNCH TRUCK OPERATOR Unavailable Sin Miranda MD PCP Reason for Visit * Reason Comments Botox Injection Encounter Details Date Type Department Care Team Description 12/09/2017 Office Visit [facility] Neurology Logan Brandon MD Chronic migraine (Primary [address]) [place] [address] [place], [place] [address] Social History Tobacco Use Types Packs/Day Years Used Date Never Smoker Sex Assigned at Date Recorded Not on file as of this encounter Instructions * Patient Instructions - Kassy Acosta, GRAPHIC DESIGN ASSISTANT - 12/09/2017 1:50 PM [facility] Botox Post-Treatment Information 1. Do not massage or apply pressure on the treated area for 4 hours after treatment since Botox may migrate to areas of undesirable effectiveness. 2. Do not lie down for 4 hours after treatment. This is to avoid the risk of pressure on the treated areas. 3. Avoid rigorous exercise/activities, extensive heat (e.g. sauna, hot tub, tanning), sun exposure and alcoholic beverages for the first 24 hours after treatment. This may cause temporary redness, swelling, and/or itching at the injection sites. Feel free to shower and go about most other daily activities. 4. You may experience a mild headache after Botox. Should this occur, we recommend you avoid aspirin or aspirin-containing products. You may opt instead to use acetaminophen, and/or cool compresses. Cold compresses may be used 10 minutes on and 10 minutes off to reduce swelling. This can be done 2-3 times per day during the first 1-2 days if needed. 5. Note that any bumps or mejia will go away in a few hours. If you develop a bruise, it will resolve like any other bruises you may have had, in about a week. There is occasionally some mild pain, swelling, itching or redness at the site of injection, similar to most other types of injections. Redness may last for 1-2 days, rarely longer. You may apply cool compresses or take acetaminophen to reduce swelling or discomfort. If you change your Insurance, please let the household manager and the nurse know immediately. We will have to re-certify the Botox treatments with the new Insurance to make sure it is still a covered service with them. Please call the office with any questions or concerns in this encounter Progress Notes * Logan Brandon MD - 12/09/2017 2:30 PM STEEL CRANE OPERATOR Formatting of this note may be different from the original. [facility] [address] [facility] [address] 12/09/2017 Patient: Niki Louis : 1965 Date: 12/09/2017 Subjective Niki Louis is a 52 y.o. female who Chief Complaint Patient presents with Botox Injection Pt is here for her 16 th Botox injection. Patient is here for her 16th series of injections for chronic migraine. Preauthorization has been obtained and informed consent was obtained with instructions related to both the local and remote potential effects of Botox injectections. Local effects such as ptosis and more remote effects such as difficulty swallowing, breathing, and even generalized weakness were discussed. Informed consent was obtained through Jovana Acosta and signed by the patient. The 31 prescribed sites for Botox injections were prepared with a local alcohol wipe. Each of these sites were injected with 5 units for a total of 155 units of Allergan brand onabotulinum toxin A. The patient had no significant adverse effects related to these 31 injections through the patient did have some local oozing of the forehead though nothing that was an adverse reaction. The patient will schedule for repeat series of injections in about 13 weeks. She will contact me related to any adverse effects. The revised Allergan Botox protocol for chronic migraine was used. As 155 units were needed, the remaining 45 units were wasted in syringes in a designated sharps box. No problem-specific Assessment & Plan notes found for this encounter. Active Problem List Diagnosis Intractable chronic migraine without aura [G43.719] Generalized osteoarthrosis, involving multiple sites [M15.9] Elevated sedimentation rate [R70.0] Myalgia and myositis [[id number]] Outpatient Prescriptions Marked as Taking for the 12/09/17 encounter (Office Visit ) with Logan Brandon MD Medication Sig Note busPIRone (BUSPAR) 10 MG tablet Take 10 mg by mouth 6 (six) times daily. Reported on 09/16/2016 cycloSPORINE (RESTASIS) 0.05 % ophthalmic emulsion Place 1 drop into both eyes 2 (two) times daily. diphenoxylate-atropine (LOMOTIL) 2.5-0.025 MG per tablet Take 1 tablet by mouth 4 (four) times daily as needed for Diarrhea. duloxetine (CYMBALTA) 60 MG capsule Take 60 mg by mouth 2 (two) times daily. ergocalciferol (VITAMIN D) 68447 UNITS capsule Take 50,000 Units by mouth once a week. Reported on 09/16/2016 fentaNYL (DURAGESIC) 25 MCG/HR Place 1 patch onto the skin every third day. Reported on 09/16/2016 02/12/2015: She is taking 50 mg metoclopramide (REGLAN) 10 MG tablet Take 10 mg by mouth 3 (three) times daily. mirabegron (MYRBETRIQ) 50 MG TB24 Take 50 mg by mouth daily. naratriptan (AMERGE) 2.5 MG tablet TAKE 1 TABLET BY MOUTH AT ONSET OF MIGRAINE -MAY REPEAT IN 4 HOURS IF NEEDED omeprazole (PRILOSEC) 40 MG capsule Take 40 mg by mouth 2 (two) times daily. ondansetron (ZOFRAN-ODT) 8 MG disintegrating tablet TAKE 1 TABLET UNDER TONGUE EVERY 6 HOURS NEEDED FOR NAUSEA SUMAtriptan (IMITREX) 6 MG/0.5ML injection INJECT 0.5ML AT ONSET OF HEADACHE -MAY REPEAT ONCE IN 2 HOURS -MAX OF 6 PER WEEK tiZANidine (ZANAFLEX) 4 MG tablet Take 4 mg by mouth every 6 (six) hours as needed (muscle spasms). VOLTAREN 1 % gel APPLY TO AFFECTED AREA FOUR TIMES DAILY Allergies Allergen Reactions Adhesive Tape Itching Any adhesive products cause itching,rash and swelling and infection Bactrim Nausea And Vomiting and Swelling Ritalin [Methylphenidate] Other (See Comments) Heart palpatations Sulfa Antibiotics Nausea And Vomiting Tetanus Toxoids Swelling Tramadol Other (See Comments) Stomach and esophagus ulcers Wellbutrin [Bupropion] Other (See Comments) Severe migraine and dehydration Objective There were no vitals taken for this visit. Patient was instructed of the local and remote potential side effects of Botox. These can be, but not limited to breathing difficulties, generalized weakness, swallowing difficulty, ptosis and pain. Patient vocalized understanding. After informed consent, discussion of risks benefits and side effects and a timeout was performed the patient received the following injections. 5 units per injection is otherwise specified. Botox Lot number:[id number] Expiration date: 06/2020 [place] Lot number:[id number] Expiration date: 09/07/2020 Total units injected 155. Wasted 45. Allergen protocol of Botox for chronic migraine was followed for injections. 31 total sites were injected. Gen. alert and appropriate. Insulation Hoseman bilateral, 5 units Procerus, 5 units Frontalis bilateral, 10 units Temporalis bilateral, 20 units Occipitalis bilateral, 15 units Cervical paraspinals, bilateral, 10 units Upper trapezius bilateral, 15 units Minimal oozing of the frontal region with no significant adverse reaction. Tolerated well. Upper trapezius bilateral, 15 units Minimal oozing of the frontal region with no significant adverse reaction. Tolerated well. Procedure codes: [id number], per unit [id number] muscle migraine Assessment/Plan 1. Chronic migraine - onabotulinumtoxinA (BOTOX) injection 155 Units; Inject 155 Units into the skin once. Patient tolerated procedure well. No complaints or significant discomfort. Patient will call if any questions or problems. We will repeat injections in 12 weeks. Proper post procedure instructions were given along with a handout. Patient understands and questions answered. Return in about 12 weeks (around 03/03/2018). Logan Brandon MD Electronically Signed 12/13/2017 10:38 AM Division of [email or web address] 4 of 4 in this encounter Plan of Treatment Date Type Specialty Care Team Description 03/03/2018 Office Visit Neurology Logan Brandon MD [address] [place] [address] as of this encounter Visit Diagnoses Diagnosis Chronic migraine - Primary Chronic migraine without aura, without mention of intractable migraine without mention of status migrainosus Administered Medications Medication Order MAR Action Action Date Dose Rate Site onabotulinumtoxinA (BOTOX) injection 155 Given by 12/09/2017 155 Units Other Units Other 13:50 STEEL CRANE OPERATOR 155 Units ONCE, Intradermal, Shalini 12/09/17 at 1415, For 1 dose, Is this medication supplied by the patient? No in this encounter
--- OUTSIDE RECORDS SUMMARY | 2018-01-16 04:02 | XMS REPORT ---
Author Author LEV PEARSON Organization [employer] Address Unknown Phone Unavailable Care Team Providers Care Aircraft Maintenance Instructor Name Role Phone LEV PEARSON CP Unavailable Allergies No Known Allergies Problems Problem Type Condition Code Onset Dates Condition Status Problem Unspecified myalgia and myositis 729.1 Active Problem Vitamin D deficiency 268.9 Active Problem Overactive bladder 596.51 Active Problem IBS (irritable bowel syndrome) K58.9 Active Problem Migraine, unspecified without mention of intractable migraine without mention of status migrainosus 346.90 Active Problem Morbid obesity 278.01 Active Problem Lumbar polyradiculopathy M54.16 Active Problem Unspecified arthropathy, site unspecified 716.90 Active Medications Medication Code System Code Instructions Start Date End Date Status Dosage Duragesic NDC 0 50 mcg/hr topical every 72 hours January 09, 2015 1 PATCH Results No Known Results Summary Purpose [employer] Submission
--- OUTSIDE RECORDS SUMMARY | 2018-01-16 04:02 | XMS REPORT ---
Author Author LEV PEARSON [facility] [employer] Address Unknown Phone Unavailable Care Team Providers Care Speech Therapist Name Role Phone LEV PEARSON CP Unavailable Allergies No Known Allergies Problems Problem Type Condition Code Onset Dates Condition Status Problem Unspecified myalgia and myositis 729.1 Active Assessment Chronic pain G89.29 Active Problem Vitamin D deficiency 268.9 Active [...]
--- OUTSIDE RECORDS SUMMARY | 2018-01-16 04:02 | XMS REPORT ---
Author Author LEV PEARSON [facility] [employer] Address Unknown Phone Unavailable Care Team Providers Care Shape Hand Name Role Phone LEV PEARSON CP Unavailable [...] Active Problem Morbid obesity 278.01 Active Problem Unspecified neuralgia, neuritis, and radiculitis 729.2 Active Problem Unspecified arthropathy, site unspecified 716.90 Active Medications Medication Code System Code Instructions Start Date End Date Status Dosage Duragesic NDC 0 50 mcg/hr topical every 72 hours January 09, 2015 1 PATCH Results No Known Results Summary Purpose [employer] Submission
--- OUTSIDE RECORDS SUMMARY | 2018-01-16 04:02 | XMS REPORT ---
Author Author LEV PEARSON [facility] [employer] Address Unknown Phone Unavailable Care Team Providers Care Svp Name Role Phone LEV PEARSON CP Unavailable [...]
--- OUTSIDE RECORDS SUMMARY | 2018-01-16 04:02 | XMS REPORT ---
Author Author LEV PEARSON [facility] [employer] Address Unknown Phone Unavailable Care Team Providers Care Catalyst Operator Gasoline Name Role Phone LEV PEARSON CP Unavailable Allergies No Known Allergies Problems Problem Type Condition Code Onset Dates Condition Status Problem Unspecified myalgia and myositis 729.1 Active Problem Overactive bladder 596.51 Active Problem Unspecified neuralgia, neuritis, and radiculitis 729.2 Active Problem Vitamin D deficiency 268.9 Active Problem Migraine, unspecified without mention of intractable migraine without mention of status migrainosus 346.90 Active Problem Morbid obesity 278.01 Active Problem Other abnormal glucose 790.29 Active Problem Unspecified arthropathy, site unspecified 716.90 Active Medications Medication Code System Code Instructions Start Date End Date Status Dosage Lomotil [facility] [address]-85 2.5-0.025 MG Orally Four times a day Aug 23, 2015 1 tablet as needed Results No Known Results Summary Purpose [employer] Submission
--- OUTSIDE RECORDS SUMMARY | 2018-01-16 04:02 | XMS REPORT ---
Author Author LEV PEARSON Organization [employer] Address Unknown Phone Unavailable Care Team Providers Care Golf Shoe Spike Assembler Name Role Phone LEV PEARSON CP Unavailable [...]
--- OUTSIDE RECORDS SUMMARY | 2018-01-16 04:02 | XMS REPORT ---
Author Author LEV PEARSON [facility] [employer] Address Unknown Phone Unavailable Care Team Providers Care Felt Hanger Name Role Phone LEV PEARSON CP Unavailable [...] Instructions Start Date End Date Status Dosage Myrbetriq [facility] [address]-21 50 MG Orally Once a day 1 tablet Results No Known Results Summary Purpose [employer] Submission
--- OUTSIDE RECORDS SUMMARY | 2018-01-16 04:02 | XMS REPORT ---
Author Author LEV PEARSON Organization [employer] Address Unknown Phone Unavailable Care Team Providers Care Automotive Product Engineer Name Role Phone LEV PEARSON CP Unavailable [...] Unspecified arthropathy, site unspecified 716.90 Active Medications No Known Medications Results No Known Results Summary Purpose [employer] Submission
--- OUTSIDE RECORDS SUMMARY | 2018-01-16 04:03 | XMS REPORT ---
Author Author LEV PEARSON [facility] eClinicalWorks Address Unknown Phone Unavailable Care Team Providers Care Warehouse Shipper Name Role Phone LEV PEARSON CP Unavailable Allergies No Known Allergies Problems Problem Type Condition ICD-9 Code Onset Dates Condition Status Problem Unspecified myalgia and myositis 729.1 Active Problem Migraine, unspecified without mention of intractable migraine without mention of status migrainosus 346.90 Active Problem Morbid obesity 278.01 Active Problem Unspecified neuralgia, neuritis, and radiculitis 729.2 Active Problem Unspecified hereditary and idiopathic peripheral neuropathy 356.9 Active Problem Overactive bladder 596.51 Active Problem Unspecified arthropathy, site unspecified 716.90 Active Problem 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
--- OUTSIDE RECORDS SUMMARY | 2018-01-16 04:03 | XMS REPORT ---
Author Author LEV PEARSON [facility] Address [address] [place] [address] Care Team Providers Care Wax Specialist Name Role Phone LEV PEARSON Unavailable PROBLEMS Type Condition ICD9-CM Code [id number] Code Onset Dates Condition Status SNOMED Code Problem Migraine without aura and without status migrainosus, not intractable G43.009 Active 776816280 Problem IBS (irritable bowel syndrome) K58.9 Active 17836506 Problem Intractable migraine without aura and with status migrainosus G43.011 Active 171674866 Problem History of bariatric surgery Z98.84 Active 789367028 Problem Chronic pain G89.29 Active 51195767 Problem Arthritis M19.90 Active 9573294 Problem Mixed hyperlipidemia E78.2 Active 688513426 Problem Chronic fatigue R53.82 Active 82035377 ALLERGIES No Information SOCIAL HISTORY Never Assessed PLAN OF CARE VITAL SIGNS MEDICATIONS Unknown Medications RESULTS Name Result Date Reference Range VITAMIN B1 (THIAMINE) 2017-01-26 Vit. B1, Whole Blood TNP Request Problem TNP TSH W/ FREE T4 2017-01-26 TSH 1.570 0.450-4.500 T4,Free(Direct) 0.85 0.82-1.77 IRON + TIBC 2017-01-26 Iron Bind.Cap.(TIBC) 360 250-450 UIBC 268 131-425 Iron, Serum 92 27-159 Iron Saturation 26 15-55 VITAMIN B12 2017-01-26 Vitamin B12 638 211-946 FOLATE (FOLIC ACID) 2017-01-26 Folate (Folic Acid), Serum 16.8 >3.0 CBC 2017-01-26 WBC 9.5 3.4-10.8 RBC 4.75 3.77-5.28 Hemoglobin 14.1 11.1-15.9 Hematocrit 42.9 34.0-46.6 MCV 90 79-97 MCH 29.7 26.6-33.0 MCHC 32.9 31.5-35.7 RDW 13.1 12.3-15.4 Platelets 344 150-379 Neutrophils 44 Lymphs 48 Monocytes 5 Eos 3 Basos 0 Neutrophils (Absolute) 4.1 1.4-7.0 Lymphs (Absolute) 4.5 0.7-3.1 Monocytes(Absolute) 0.5 0.1-0.9 Eos (Absolute) 0.2 0.0-0.4 Baso (Absolute) 0.0 0.0-0.2 Immature Granulocytes 0 Immature Grans (Abs) 0.0 0.0-0.1 VITAMIN D, 25-H 2017-01-26 Vitamin D, 25-Hydroxy 33.8 30.0-100.0 LIPID PANEL 2017-01-26 Cholesterol, Total 215 100-199 Triglycerides 108 0-149 HDL Cholesterol 64 >39 VLDL Cholesterol Marbin 22 5-40 LDL Cholesterol Calc 129 0-99 CMP 2017-01-26 Glucose, Serum 99 65-99 BUN 14 6-24 Creatinine, Serum 0.66 0.57-1.00 eGFR If NonAfricn Am 103 >59 eGFR If Africn Am 118 >59 BUN/Creatinine Ratio 21 9-23 Sodium, Serum 142 134-144 Potassium, Serum 4.3 3.5-5.2 Chloride, Serum 100 96-106 Carbon Dioxide, Total 24 18-29 Calcium, Serum 9.3 8.7-10.2 Protein, Total, Serum 7.4 6.0-8.5 Albumin, Serum 3.9 3.5-5.5 Globulin, Total 3.5 1.5-4.5 A/G Ratio 1.1 1.2-2.2 Bilirubin, Total 0.3 0.0-1.2 Alkaline Phosphatase, S 114 39-117 AST (SGOT) 16 0-40 ALT (SGPT) 15 0-32 PROCEDURES Procedure Date Ordered Result [facility] VENIPUNCT, ROUTINE* January 26, 2017 IMMUNIZATIONS No Known Immunizations MEDICAL (GENERAL) HISTORY Type Description Date Medical [...] 1976 Surgical History bladder tie up at [facility] 09/09/2011 Surgical History Tubal ligation 04/2004 Surgical History Hysterectomy 09/09/2011 Surgical History Gastric Sleeve 02/2016 Hospitalization History Past surgeries Hospitalization History Dehydration/Observation 10/2015
--- OUTSIDE RECORDS SUMMARY | 2018-01-16 04:03 | XMS REPORT ---
Author Author LEV PEARSON [facility] eClinicalWorks Address Unknown Phone Unavailable Care Team Providers Care Disaster Recovery Consultant Name Role Phone LEV PEARSON CP Unavailable [...]
--- OUTSIDE RECORDS SUMMARY | 2018-01-16 04:03 | XMS REPORT ---
Author Author LEV PEARSON [facility] Address [address] [place] [address] Care Team Providers Care Barrel Painter Name Role Phone LEV PEARSON Unavailable PROBLEMS Type Condition ICD9-CM Code [id number] Code Onset Dates Condition Status SNOMED Code Problem Migraine without aura and without status migrainosus, not intractable G43.009 Active 883484007 Problem IBS (irritable bowel syndrome) K58.9 Active 97333610 Problem Intractable migraine without aura and with status migrainosus G43.011 Active 382184591 Problem History of bariatric surgery Z98.84 Active 093668446 Problem Chronic pain G89.29 Active 86100542 Problem Arthritis M19.90 Active 9248692 Problem Mixed hyperlipidemia E78.2 Active 661081686 Problem Chronic fatigue R53.82 Active 33856505 ALLERGIES Unknown Allergies SOCIAL HISTORY No smoking Hx information available PLAN OF CARE VITAL SIGNS MEDICATIONS Unknown Medications RESULTS No Results PROCEDURES No Known procedures IMMUNIZATIONS No Known Immunizations
--- OUTSIDE RECORDS SUMMARY | 2018-01-16 04:03 | XMS REPORT ---
Author Author LEV PEARSON [facility] eClinicalWorks Address Unknown Phone Unavailable Care Team Providers Care Community Mental Health Social Worker Name Role Phone LEV PEARSON CP Unavailable [...]
--- OUTSIDE RECORDS SUMMARY | 2018-01-16 04:03 | XMS REPORT ---
Author Author LEV PEARSON [facility] eClinicalWorks Address Unknown Phone Unavailable Care Team Providers Care Relief Pilot Name Role Phone LEV PEARSON CP Unavailable [...]
--- OUTSIDE RECORDS SUMMARY | 2018-01-16 04:03 | XMS REPORT ---
Author Author LEV PEARSON Organization eClinicalWorks Address Unknown Phone Unavailable Care Team Providers Care Timber Feller Name Role Phone LEV PEARSON CP Unavailable [...]
--- OUTSIDE RECORDS SUMMARY | 2018-01-16 04:04 | XMS REPORT ---
Author Author LEV PEARSON Organization eClinicalWorks Address Unknown Phone Unavailable Care Team Providers Care Classroom Coordinator Name Role Phone LEV PEARSON CP Unavailable [...]
--- OUTSIDE RECORDS SUMMARY | 2018-01-16 04:04 | XMS REPORT ---
Author LEV Krishna [facility] eClinicalWorks Address Unknown Phone Unavailable Care Team Providers Care Audio/Video Engineer Name Role Phone LEV PEARSON CP Unavailable Allergies, Adverse Reactions, Alerts Substance Reaction Event Type Adhesive Tape Info Not Available Drug Allergy Wellbutrin Info Not Available Drug Allergy Heparin Lock Flush Info Not Available Drug Allergy Bactrim severe yeast infection Drug Allergy Shrimp Info Not Available Non Drug Allergy Dust Mite Info Not Available Non Drug Allergy Cockroach Feces Info Not Available Non Drug Allergy Problems Problem Type Condition Code Onset Dates Condition Status Assessment Encounter for immunization Z23 Active Problem Unspecified myalgia and myositis 729.1 Active Assessment Diarrhea R19.7 Active Assessment IBS (irritable bowel syndrome) K58.9 Active Problem Vitamin D deficiency 268.9 Active [...] Instructions Start Date End Date Status Dosage Phenergan [facility] 17286110599 25 MG 1 tablet by Oral route 1 time per day PRN at hs Gabapentin ND 60292096413 800 MG Orally 5 times a day 1 tablet Duragesic NDC 0 50 mcg/hr topical every 72 hours January 09, 2015 1 PATCH Nexium [facility] [address]-51 40 MG Orally Once a day TAKE 1 CAPSULE Metoclopramide HCl ND 21000038418 10 MG TAKE ONE TABLET BY MOUTH THREE TIMES DAILY - TAKE BEFORE MEALS buspirone NDC 0 10 mg Dec 21, 2014 1 Tablet by Oral route 6 times per day Sumavel DosePro [facility] [address]-03 6 mg/0.5 mL Dec 08, 2011 inject 6 mg by subcutaneous route once; may be repeated 1 hour after the first dose if headache pain returns or increases in severity; do not exceed 2 doses within 24 hours Vitamin D2 [facility] [address] 50,000 unit Aug 17, 2014 take 1 capsule (50,000 unit) by oral route once weekly for 12 weeks Lomotil [facility] [address]-41 2.5-0.025 MG Orally Four times a day Aug 23, 2015 1 tablet as needed Amerge [facility] [address]-61 2.5 MG Orally Once a day 1 tablet as needed one time Fioricet [facility] [address]-85 50-300-40 MG Orally every 4 hrs prn 1 capsule as needed Zofran ODT [facility] [address]-63 8 mg Sep 11, 2013 not defined Voltaren [facility] [address]-57 1 % Aug 17, 2014 1 Application by Topical route 4 times per day Acidophilus [facility] 23930032740 100 MG Orally 2-3 times a day until diarrhea stops 1 capsule Carisoprodol [facility] 14604190532 350 MG TAKE ONE TABLET BY MOUTH THREE TIMES DAILY. MUST LAST 30 DAYS. Propranolol HCl CR [facility] [address]-11 120 MG Orally Once a day 1 capsule Myrbetriq [facility] [address]-01 50 MG Orally Once a day 1 tablet Furosemide [facility] [address]-04 20 Orally Once a day prn 2 tablet Questran [facility] [address]-88 4 GM Orally Twice a day May 27, 2015 1 packet mixed with water or non-carbonated drink Procedures Procedure Coding System Code Date Office Visit, Est Pt., Level 2 CPT-4 74700 Sep 09, 2015 FLUARIX QUAD (3 & UP)-GSK-2014 CPT-4 74743 Sep 09, 2015 [facility] VISIT ESTABLISHED PATIENT CPT-4 G0467 Sep 09, 2015 ADMN FLU VAC NO FEE SCHED SAME DAY CPT-4 G0008 Sep 09, 2015 SINGLE IMMUNIZATION ADMIN CPT-4 21585 Sep 09, 2015 Vital Signs Date/Time: Sep 09, 2015 Temperature 97.8 F Weight 292 lbs Height 62 in BMI 53.40 Index Blood Pressure Diastolic 74 mmHg Blood Pressure Systolic 120 mmHg Cardiac Monitoring Heart Rate 70 bpm Results No Known Results Immunizations Vaccine Administration Date FLUARIX QUAD (3 & UP)-GSK-2014Sep 09, 2015 Summary Purpose eClinicalWorks Submission
--- OUTSIDE RECORDS SUMMARY | 2018-01-16 04:04 | XMS REPORT ---
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
--- OUTSIDE RECORDS SUMMARY | 2018-01-16 04:04 | XMS REPORT ---
Author Author LEV PEARSON [facility] Address [address] [place] [address] Care Team Providers Care Research Leader Name Role Phone LEV PEARSON Unavailable PROBLEMS Type Condition ICD9-CM Code VBY17-BK Code Onset Dates Condition Status SNOMED Code Problem Migraine without aura and without status migrainosus, not intractable G43.009 Active 141194535 Problem IBS (irritable bowel syndrome) K58.9 Active 43478362 Problem Intractable migraine without aura and with status migrainosus G43.011 Active 315965583 Problem History of bariatric surgery Z98.84 Active 230719075 Problem Chronic pain G89.29 Active 97889930 Problem Arthritis M19.90 Active 9948853 Problem Mixed hyperlipidemia E78.2 Active 395269179 Problem Chronic fatigue R53.82 Active 57201639 ALLERGIES Substance Reaction Event Type Date Status Adhesive Tape Unknown Drug Allergy Jan, Active Tetanus Unknown Drug Allergy Jan, Active Wellbutrin Unknown Drug Allergy Jan, Active Sulfamethoxazole-Trimethoprim Unknown Drug Allergy Jan, Active Heparin Lock Flush Unknown Drug Allergy Jan, Active Shrimp Unknown Non Drug Allergy Jan, Active Dust Mite Unknown Non Drug Allergy Jan, Active Cockroach Feces Unknown Non Drug Allergy Jan, Active SOCIAL HISTORY Never Assessed PLAN OF CARE Activity Details Follow Up 3 Months Reason: VITAL SIGNS Height 62 in 2017-01-21 Weight 236 lbs 2017-01-21 Temperature 98.7 degrees Fahrenheit 2017-01-21 Heart Rate 80 bpm 2017-01-21 Respiratory Rate 20 2017-01-21 BMI 43.16 kg/m2 2017-01-21 Blood pressure systolic 110 mmHg 2017-01-21 Blood pressure diastolic 74 mmHg 2017-01-21 MEDICATIONS Medication Instructions Dosage Frequency Start Date End Date Duration Status Voltaren 1 % 1 Application by Topical route 4 times per day Aug, Active buspirone 10 mg 1 Tablet by Oral route 6 times per day Dec, Active Sumavel DosePro 6 mg/0.5 mL inject 6 mg by subcutaneous route once; may be repeated 1 hour after the first dose if headache pain returns or increases in severity; do not exceed 2 doses within 24 hours Nov, Active Lomotil 2.5-0.025 MG Orally Four times a day 1 tablet as needed 6h 16 Aug, 2015 Active Cymbalta 60 mg Orally twice a day 1 capsule 12h March, Active Nexium 40 MG Orally Once a day TAKE 1 CAPSULE 24h Active Creon Active Colestipol HCl 1 GM TAKE 1 TABLET BY MOUTH EACH NIGHT AT BEDTIME 30 Active Vitamin D2 50,000 unit take 1 capsule (50,000 unit) by oral route once weekly for 12 weeks Aug, Active Furosemide 20 Orally Once a day prn 2 tablet Active Amerge 2.5 MG Orally Once a day 1 tablet as needed one time 24h Active Myrbetriq 50 MG Orally Once a day 1 tablet 24h Active Phendimetrazine Tartrate 35 MG Orally 3 times a day 1 tablet 8h Active Phenergan 25 MG 1 tablet by Oral route 1 time per day PRN at hs Active Zofran ODT 8 mg Sep, Active Doxepin HCl 50 MG TAKE 1 CAPSULE BY MOUTH AT BEDTIME 30 Active Tizanidine HCl 4 MG Orally every 8 hrs 2 capsule as needed 8h 30 Sep, 2015 Active Fentanyl 50 MCG/HR Transdermal every 72 hours 1 patch to skin Jan, 30 days Active RESULTS No Results PROCEDURES Procedure Date Ordered Result Body Site [facility] VISIT ESTABLISHED PATIENT January 21, 2017 IMMUNIZATIONS No Known Immunizations MEDICAL (GENERAL) [...] 1976 Surgical History bladder tie up at [facility] 09/09/2011 Surgical History Tubal ligation 04/2004 Surgical History Hysterectomy 09/09/2011 Surgical History Gastric Sleeve 02/2016 Hospitalization History Past surgeries Hospitalization History Dehydration/Observation 10/2015
--- OUTSIDE RECORDS SUMMARY | 2018-01-16 04:04 | XMS REPORT ---
Author LEV Krishna [facility] eClinicalWorks Address Unknown Phone Unavailable Care Team Providers Care Procurement Officer Name Role Phone LEV PEARSON CP Unavailable Allergies, Adverse Reactions, Alerts Substance Reaction Event Type Adhesive Tape Info Not Available Drug Allergy Wellbutrin Info Not Available Drug Allergy Bactrim severe yeast infection Drug Allergy Shrimp Info Not Available Non Drug Allergy Dust Mite Info Not Available Non Drug Allergy Cockroach Feces Info Not Available Non Drug Allergy Problems Problem Type Condition ICD-9 Code Onset Dates Condition Status Assessment Unspecified arthropathy, site unspecified 716.90 Active Problem Unspecified myalgia and myositis 729.1 Active Assessment Diarrhea 787.91 Active Assessment Vitamin D deficiency 268.9 Active Assessment Hyperglycemia 790.29 Active Problem Overactive bladder 596.51 Active Problem [...] Instructions Start Date End Date Status Dosage Questran [facility] [address]-84 4 GM Orally Twice a day May 27, 2015 1 packet mixed with water or non-carbonated drink Metoclopramide HCl [facility] 09234740989 10 MG TAKE ONE TABLET BY MOUTH THREE TIMES DAILY - TAKE BEFORE MEALS buspirone ND 0 10 mg Dec 21, 2014 1 Tablet by Oral route 6 times per day Sumavel DosePro [facility] [address]-67 6 mg/0.5 mL Dec 08, 2011 inject 6 mg by subcutaneous route once; may be repeated 1 hour after the first dose if headache pain returns or increases in severity; do not exceed 2 doses within 24 hours Duragesic NDC 0 50 mcg/hr topical every 72 hours January 09, 2015 1 PATCH Fioricet [facility] [address]-92 50-300-40 MG Orally every 4 hrs prn 1 capsule as needed Gabapentin [facility] [address]-78 800 MG Orally 5 times a day 1 tablet Propranolol HCl CR [facility] [address]-50 120 MG Orally Once a day 1 capsule Vitamin D2 [facility] [address] 50,000 unit Aug 17, 2014 take 1 capsule (50,000 unit) by oral route once weekly for 12 weeks Phenergan [facility] [address]-32 25 MG February 13, 2014 1 tablet by Oral route 1 time per day PRN at hs Soma [facility] [address]-13 350 MG Dec 28, 2014 1 tablet by Oral route 3 times per day PRN each fill must last 30 days Myrbetriq [facility] [address]-58 50 MG Orally Once a day 1 tablet Acidophilus [facility] [address] 100 MG Orally 2-3 times a day until diarrhea stops Jun 27, 2015 1 capsule Zofran ODT [facility] [address]-79 8 mg Sep 11, 2013 not defined Amerge [facility] [address]-33 2.5 MG Orally Once a day 1 tablet as needed one time Furosemide [facility] [address]-75 20 Orally Once a day prn 2 tablet Nexium [facility] [address]-23 40 MG Orally Once a day TAKE 1 CAPSULE Voltaren [facility] [address]-12 1 % Aug 17, 2014 1 Application by Topical route 4 times per day Procedures Procedure Coding System Code Date FLUORESCENT ANTIBODY, SCREEN CPT-4 74652 Jul 18, 2015 LAB NOT BILLED BY [facility] CPT-4 NOBLL Jul 18, 2015 IMMUNOASSAY, NONANTIBODY CPT-4 42153 Jul 18, 2015 [facility] VISIT ESTABLISHED PATIENT CPT-4 G0467 Jul 18, 2015 GLYCATED HEMOGLOBIN TEST CPT-4 33228 Jul 18, 2015 VENIPUNCT, ROUTINE* CPT-4 74690 Jul 18, 2015 Office Visit, Est Pt., Level 4 CPT-4 25511 Jul 18, 2015 Vital Signs Date/Time: Jul 18, 2015 Temperature 97.6 F Weight 296.4 lbs Height 62 in BMI 54.21 Index Blood Pressure Diastolic 80 mmHg Blood Pressure Systolic 124 mmHg Cardiac Monitoring Heart Rate 72 bpm Results Name Result Date Reference Range Unit Abnormality Flag ROUTINE VENIPUNCTURE Summary Purpose eClinicalWorks Submission
--- OUTSIDE RECORDS SUMMARY | 2018-01-16 04:04 | XMS REPORT ---
Author Author LEV PEARSON [facility] Address [address] [place] [address] Care Team Providers Care Sales And Marketing Analyst Name Role Phone LEV PEARSON Unavailable PROBLEMS Type Condition ICD9-CM Code SHG06-VO Code Onset Dates Condition Status SNOMED Code Assessment Encounter for immunization Z23 Oct, Active 751074165 Problem Other chronic pain G89.29 Active 74260476 Problem Arthritis M19.90 Active 9249514 Assessment Other chronic pain G89.29 Oct, Active 66843799 Assessment Lumbar polyradiculopathy M54.16 Oct, Active 638152381 Problem Migraine without aura and without status migrainosus, not intractable G43.009 Active 208736715 Problem IBS (irritable bowel syndrome) K58.9 Active 03570129 ALLERGIES Substance Reaction Event Type Date Status Adhesive Tape Unknown Drug Allergy Oct, Active Tetanus Unknown Drug Allergy Oct, Active Wellbutrin Unknown Drug Allergy Oct, Active Sulfamethoxazole-Trimethoprim Unknown Drug Allergy Oct, Active Heparin Lock Flush Unknown Drug Allergy Oct, Active Shrimp Unknown Non Drug Allergy Oct, Active Dust Mite Unknown Non Drug Allergy Oct, Active Cockroach Feces Unknown Non Drug Allergy Oct, Active SOCIAL HISTORY No smoking Hx information available PLAN OF CARE Activity Details Pending Test AMERITOX 3 Months,Reason: VITAL SIGNS Height 62 in 2016-10-19 Weight 230 lbs 2016-10-19 Heart Rate 80 bpm 2016-10-19 Respiratory Rate 18 2016-10-19 BMI 42.06 kg/m2 2016-10-19 Blood pressure systolic 108 mmHg 2016-10-19 Blood pressure diastolic 70 mmHg 2016-10-19 MEDICATIONS Medication Instructions Dosage Frequency Start Date End Date Duration Status Sumavel DosePro 6 mg/0.5 mL inject 6 mg by subcutaneous route once; may be repeated 1 hour after the first dose if headache pain returns or increases in severity; do not exceed 2 doses within 24 hours Nov, Active Zofran ODT 8 mg Sep, Active Tizanidine HCl 4 MG Orally every 8 hrs 2 capsule as needed 8h 30 Sep, 2015 Active Lomotil 2.5-0.025 MG Orally Four times a day 1 tablet as needed 6h Aug, Active Voltaren 1 % 1 Application by Topical route 4 times per day Aug, Active Furosemide 20 Orally Once a day prn 2 tablet Active Phentermine HCl 37.5 MG Active buspirone 10 mg 1 Tablet by Oral route 6 times per day Dec, Active Vitamin D2 50,000 unit take 1 capsule (50,000 unit) by oral route once weekly for 12 weeks Aug, Active Cymbalta 60 mg Orally twice a day 1 capsule 12h March, Active Myrbetriq 50 MG Orally Once a day 1 tablet 24h Active Duragesic 50 mcg/hr topical every 72 hours 1 PATCH Jan, Active Amerge 2.5 MG Orally Once a day 1 tablet as needed one time 24h Active Phenergan 25 MG 1 tablet by Oral route 1 time per day PRN at hs Active Doxepin HCl 50 MG TAKE 1 CAPSULE BY MOUTH AT BEDTIME 30 Active Nexium 40 MG Orally Once a day TAKE 1 CAPSULE 24h Active Hydrocodone-Acetaminophen 5-325 MG Orally every 6 hrs 1 tablet as needed 6h Active RESULTS Name Result Date Reference Range AMERITOX 2016-10-19 PROCEDURES Procedure Date Ordered Related Diagnosis Body Site No Charge Oct 19, 2016 [facility] VISIT ESTABLISHED PATIENT Oct 19, 2016 FLUARIX QUAD P-FREE 3 AND UP .50 2015Oct 19, 2016 Office Visit, Est Pt., Level 3 Oct 19, 2016 SINGLE IMMUNIZATION ADMIN Oct 19, 2016 IMMUNIZATIONS Vaccine Route Administration Date Status FLUARIX QUAD P-FREE 3 AND UP .50 2015 IM Intramuscular Oct 19, 2016 Administered
--- OUTSIDE RECORDS SUMMARY | 2018-01-16 04:05 | XMS REPORT ---
Author Author LEV PEARSON [facility] Address [address] [place] [address] Care Team Providers Care Supervisor Production Department Name Role Phone LEV PEARSON Unavailable PROBLEMS Type Condition ICD9-CM Code JNU00-AM Code Onset Dates Condition Status SNOMED Code Problem Migraine without aura and without status migrainosus, not intractable G43.009 Active 966629715 Problem IBS (irritable bowel syndrome) K58.9 Active 49067747 Problem Intractable migraine without aura and with status migrainosus G43.011 Active 874277955 Problem History of bariatric surgery Z98.84 Active 866120363 Problem Chronic pain G89.29 Active 30729489 Problem Arthritis M19.90 Active 1219708 Problem Mixed hyperlipidemia E78.2 Active 746526571 Problem Chronic fatigue R53.82 Active 38059565 ALLERGIES Unknown Allergies SOCIAL HISTORY No smoking Hx information available PLAN OF CARE Activity Details Pending Test TSH VITAL SIGNS MEDICATIONS Unknown Medications RESULTS Name Result Date Reference Range VITAMIN B12 2016-11-12 Vitamin B12 593 211-946 UA W/ MICROSCOPY 2016-11-12 Specific [place] 1.027 1.005-1.030 pH 5.0 5.0-7.5 Urine-Color Yellow Yellow Appearance Cloudy Clear WBC Esterase Negative Negative Protein Negative Negative/Trace Glucose Negative Negative Ketones Negative Negative Occult Blood Negative Negative Bilirubin Negative Negative Urobilinogen,Semi-Qn 0.2 0.2-1.0 Nitrite, Urine Negative Negative Microscopic Examination Microscopic Examination See below: WBC 0-5 0 - 5 RBC 0-2 0 - 2 Epithelial Cells (non renal) >10 0 - 10 Mucus Threads Present Not Estab. Bacteria Moderate None seen/Few THYROID ANTIBODIES 2016-11-12 Thyroid Peroxidase (TPO) Ab 17 0-34 Thyroglobulin Antibody 0.2 0.0-0.9 VITAMIN B1 (THIAMINE) 2016-11-12 Vit. B1, Whole Blood 193.8 66.5-200.0 TSH W/ FREE T4 2016-11-12 TSH 1.790 0.450-4.500 T4,Free(Direct) 0.78 0.82-1.77 PROCEDURES Procedure Date Ordered Related Diagnosis Body Site [facility] Nov 12, 2016 VENIPUNCT, ROUTINE* Nov 12, 2016 IMMUNIZATIONS No Known Immunizations
--- OUTSIDE RECORDS SUMMARY | 2018-01-16 04:05 | XMS REPORT ---
Author Author LEV PEARSON Organization [facility] Address [address] [place] [address] Care Team Providers Care Marine Habitat Resource Specialist Name Role Phone LEV PEARSON Unavailable PROBLEMS Type Condition ICD9-CM Code NHI01-MX Code Onset Dates Condition Status SNOMED Code Problem Migraine without aura and without status migrainosus, not intractable G43.009 Active 133391044 Problem IBS (irritable bowel syndrome) K58.9 Active 38981921 Problem Intractable migraine without aura and with status migrainosus G43.011 Active 632741551 Problem History of bariatric surgery Z98.84 Active 691067935 Problem Chronic pain G89.29 Active 66568011 Problem Arthritis M19.90 Active 4822291 Problem Mixed hyperlipidemia E78.2 Active 852066732 Problem Chronic fatigue R53.82 Active 31231795 ALLERGIES No Information SOCIAL HISTORY Never Assessed PLAN OF CARE VITAL SIGNS MEDICATIONS Medication Instructions Dosage Frequency Start Date End Date Duration Status Fentanyl 50 MCG/HR Transdermal every 72 hours 1 patch to skin Dec, Active RESULTS No Results PROCEDURES No Known procedures IMMUNIZATIONS No Known Immunizations MEDICAL (GENERAL) HISTORY [...] 1976 Surgical History bladder tie up at [facility] 09/09/2011 Surgical History Tubal ligation 04/2004 Surgical History Hysterectomy 09/09/2011 Surgical History Gastric Sleeve 02/2016 Hospitalization History Past surgeries Hospitalization History Dehydration/Observation 10/2015
--- OUTSIDE RECORDS SUMMARY | 2018-01-16 04:05 | XMS REPORT ---
Author MARY Covarrubias [facility] eClinicalWorks Address Unknown Phone Unavailable Care Team Providers Care Professor Of Biochemistry Name Role Phone MARY CABRERA Unavailable Allergies, Adverse Reactions, Alerts Substance Reaction [...] 346.90 Active Problem Morbid obesity 278.01 Active Assessment Diarrhea 787.91 Active Problem Unspecified neuralgia, neuritis, and radiculitis [...] Start Date End Date Status Dosage Myrbetriq [facility] [address]-13 25 MG Orally Once a day 1 tablet Propranolol HCl CR [facility] [address]-07 120 MG Orally Once a day [address] [facility] [address]-48 4 GM Orally Twice a day May 27, 2015 1 packet mixed with water or non-carbonated drink Nexium [facility] [address]-44 40 MG Orally Once a day TAKE [address] [facility] 0 10 mg Dec 21, 2014 1 Tablet by Oral route 6 times per day Soma [facility] [address]-13 350 MG Dec 28, 2014 1 tablet by Oral route 3 times per day PRN each fill must last 30 days Vitamin D2 [facility] 53919-[address]70 50,000 unit Aug 17, 2014 take 1 capsule (50,000 unit) by oral route once weekly for 12 weeks Sumavel DosePro [facility] [address]-91 6 mg/0.5 mL Dec 08, 2011 inject 6 mg by subcutaneous route once; may be repeated 1 hour after the first dose if headache pain returns or increases in severity; do not exceed 2 doses within [address] [facility] [address]-84 25 MG February 13, 2014 1 tablet by Oral route 1 time per day PRN at hs Duragesic [facility] 0 50 mcg/hr topical every 72 hours January 09, 2015 [address] [facility] 06[address]-55042 100 MG Orally 2-3 times a day until diarrhea stops Jun 27, [address] [facility] [address]-67 1 % Aug 17, 2014 1 Application by Topical route 4 times per day Zofran ODT [facility] [address]-23 8 mg Sep 11, 2013 not defined Gabapentin [facility] [address]-62 800 MG Orally 5 times a day [address] [facility] [address]-77 20 Orally Once a day prn [address] [facility] [address]-89 50-300-40 MG Orally every 4 hrs prn 1 capsule as needed Amerge [facility] [address]-36 2.5 MG Orally Once a day 1 tablet as needed one time Metoclopramide HCl [facility] 34315524958 10 MG TAKE ONE TABLET BY MOUTH THREE TIMES DAILY - TAKE BEFORE MEALS Procedures Procedure Coding System Code Date Office Visit, Est Pt., Level 3 CPT-4 73564 Jun 27, 2015 [facility] VISIT ESTABLISHED PATIENT CPT-4 G0467 Jun 27, 2015 Vital Signs Date/Time: Jun 27, 2015 Temperature 97.2 F Weight 297 lbs Height 62 in BMI 54.32 Index Blood Pressure Diastolic 86 mmHg Blood Pressure Systolic 116 mmHg Cardiac Monitoring Heart Rate 76 bpm Results No Known Results Summary Purpose eClinicalWorks Submission
--- OUTSIDE RECORDS SUMMARY | 2018-01-16 04:05 | XMS REPORT ---
Author Author LEV PEARSON [facility] eClinicalWorks Address Unknown Phone Unavailable Care Team Providers Care Roller Leveler Name Role Phone LEV PEARSON CP Unavailable [...] Instructions Start Date End Date Status Dosage Tizanidine HCl [facility] [address]-16 4 MG Orally every 8 hrs Oct 07, 2015 2 capsule as needed Colestid [facility] [address]-65 1 GM Orally Once a day at bedtime Oct 07, 2015 1 tablet Results No Known Results Summary Purpose eClinicalWorks Submission
--- OUTSIDE RECORDS SUMMARY | 2018-01-16 04:05 | XMS REPORT ---
Author Author LEV PEARSON Organization [employer] Address Unknown Phone Unavailable Care Team Providers Care Manager Biostatistics Name Role Phone LEV PEARSON CP Unavailable [...]
--- OUTSIDE RECORDS SUMMARY | 2018-01-16 04:05 | XMS REPORT ---
Author Author LEV PEARSON Organization [employer] Address Unknown Phone Unavailable Care Team Providers Care Laundry Equipment Operator Name Role Phone LEV PEARSON CP Unavailable [...]
--- OUTSIDE RECORDS SUMMARY | 2018-01-16 04:05 | XMS REPORT ---
Author Author LEV PEARSON Organization [employer] Address Unknown Phone Unavailable Care Team Providers Care Geotechnicial Properties Technician Name Role Phone LEV PEARSON CP Unavailable [...]
--- OUTSIDE RECORDS SUMMARY | 2018-01-16 04:05 | XMS REPORT ---
Author Author LEV PEARSON [facility] eClinicalWorks Address Unknown Phone Unavailable Care Team Providers Care Flexo Folder Gluer Operator Name Role Phone LEV PEARSON CP [...]
--- OUTSIDE RECORDS SUMMARY | 2018-01-16 04:05 | XMS REPORT ---
Author Author LEV PEARSON [facility] eClinicalWorks Address Unknown Phone Unavailable Care Team Providers Care Intern Retail Name Role Phone LEV PEARSON CP Unavailable [...] Instructions Start Date End Date Status Dosage Diphenoxylate-Atropine [facility] 2001 [id number] 2.5-0.025 MG TAKE ONE TABLET BY MOUTH UP TO FOUR TIMES DAILY NEEDED Results No Known Results Summary Purpose eClinicalWorks Submission
--- OUTSIDE RECORDS SUMMARY | 2018-01-16 04:05 | XMS REPORT ---
Author Author LEV PEARSON [facility] eClinicalWorks Address Unknown Phone Unavailable Care Team Providers Care Lead Pharmacy Technician Name Role Phone LEV PEARSON CP [...]
--- OUTSIDE RECORDS SUMMARY | 2018-01-16 04:06 | XMS REPORT ---
Author Author LEV PEARSON [facility] e[employer] Address Unknown Phone Unavailable Care Team Providers Care Watchguard Name Role Phone LEV PEARSON CP Unavailable [...] Problem Other abnormal glucose 790.29 Active Medications No Known Medications Results No Known Results Summary Purpose eClinicalWorks Submission
--- OUTSIDE RECORDS SUMMARY | 2018-01-16 04:06 | XMS REPORT ---
Author Author LEV PEARSON Organization [employer] Address Unknown Phone Unavailable Care Team Providers Care Adventure Guide Name Role Phone LEV PEARSON CP Unavailable [...]
--- OUTSIDE RECORDS SUMMARY | 2018-01-16 04:06 | XMS REPORT ---
Author Author LEV PEARSON Organization [employer] Address Unknown Phone Unavailable Care Team Providers Care Addiction Specialist Name Role Phone LEV PEARSON CP Unavailable [...]
--- OUTSIDE RECORDS SUMMARY | 2018-01-16 04:06 | XMS REPORT ---
Author Author LEV PEARSON Organization [facility] Address [address] [place] [address] Care Team Providers Care Hide Grader Name Role Phone LEV PEARSON Unavailable PROBLEMS Type Condition ICD9-CM Code QEE98-EQ Code Onset Dates Condition Status SNOMED Code Problem Migraine without aura and without status migrainosus, not intractable G43.009 Active 994695881 Problem IBS (irritable bowel syndrome) K58.9 Active 86826625 Problem Intractable migraine without aura and with status migrainosus G43.011 Active 321986892 Problem History of bariatric surgery Z98.84 Active 275862278 Problem Chronic pain G89.29 Active 69088596 Problem Arthritis M19.90 Active 5002772 Problem Mixed hyperlipidemia E78.2 Active 418326140 Problem Chronic fatigue R53.82 Active 05595585 ALLERGIES No Information SOCIAL HISTORY Never Assessed PLAN OF CARE VITAL SIGNS MEDICATIONS Medication Instructions Dosage Frequency Start Date End Date Duration Status Lomotil 2.5-0.025 MG Orally Four times a day 1 tablet as needed 6h Aug, Active RESULTS No Results PROCEDURES No Known [...] 1976 Surgical History bladder tie up at [facility] 09/09/2011 Surgical History Tubal ligation 04/2004 Surgical History Hysterectomy 09/09/2011 Surgical History Gastric Sleeve 02/2016 Hospitalization History Past surgeries Hospitalization History Dehydration/Observation 10/2015
--- OUTSIDE RECORDS SUMMARY | 2018-01-16 04:06 | XMS REPORT ---
Author Author LEV PEARSON Organization [facility] Address [address] [place] [address] Care Team Providers Care Quarry Supervisor Dimension Stone Name Role Phone LEV PEARSON Unavailable PROBLEMS Type Condition ICD9-CM Code NUL37-AZ Code Onset Dates Condition Status SNOMED Code Problem Migraine without aura and without status migrainosus, not intractable G43.009 Active 421634505 Problem IBS (irritable bowel syndrome) K58.9 Active 80429621 Problem Intractable migraine without aura and with status migrainosus G43.011 Active 809291770 Problem History of bariatric surgery Z98.84 Active 722581103 Problem Chronic pain G89.29 Active 39112469 Problem Arthritis M19.90 Active 2753492 Problem Mixed hyperlipidemia E78.2 Active 923427789 Problem Chronic fatigue R53.82 Active 36968941 ALLERGIES No Information SOCIAL HISTORY Never Assessed PLAN OF CARE VITAL SIGNS MEDICATIONS Medication Instructions Dosage Frequency Start Date End Date Duration Status Fentanyl 50 MCG/HR Transdermal every 72 hours 1 patch to skin March, 30 days Active RESULTS No Results PROCEDURES No Known [...] 1976 Surgical History bladder tie up at [facility] 09/09/2011 Surgical History Tubal ligation 04/2004 Surgical History Hysterectomy 09/09/2011 Surgical History Gastric Sleeve 02/2016 Hospitalization History Past surgeries Hospitalization History Dehydration/Observation 10/2015
--- OUTSIDE RECORDS SUMMARY | 2018-01-16 04:06 | XMS REPORT ---
Author Author LEV PEARSON Organization [facility] Address [address] [place] [address] Care Team Providers Care Asset Availability Leader Name Role Phone LEV PEARSON Unavailable PROBLEMS Type Condition ICD9-CM Code XMY23-LP Code Onset Dates Condition Status SNOMED Code Problem Migraine without aura and without status migrainosus, not intractable G43.009 Active 114892381 Problem IBS (irritable bowel syndrome) K58.9 Active 20899652 Problem Intractable migraine without aura and with status migrainosus G43.011 Active 794646104 Problem History of bariatric surgery Z98.84 Active 652947842 Problem Chronic pain G89.29 Active 27884804 Problem Arthritis M19.90 Active 8031042 Problem Mixed hyperlipidemia E78.2 Active 276947447 Problem Chronic fatigue R53.82 Active 52259947 ALLERGIES No Information SOCIAL HISTORY Never Assessed [...] 1976 Surgical History bladder tie up at [facility] 09/09/2011 Surgical History Tubal ligation 04/2004 Surgical History Hysterectomy 09/09/2011 Surgical History Gastric Sleeve 02/2016 Hospitalization History Past surgeries Hospitalization History Dehydration/Observation 10/2015
--- OUTSIDE RECORDS SUMMARY | 2018-01-16 04:06 | XMS REPORT ---
Author Author LEV PEARSON [facility] Address [address] [place] [address] Care Team Providers Care Joiner Name Role Phone LEV PEARSON Unavailable PROBLEMS Type Condition ICD9-CM Code DIN77-UK Code Onset Dates Condition Status SNOMED Code Problem Migraine without aura and without status migrainosus, not intractable G43.009 Active 873955098 Problem IBS (irritable bowel syndrome) K58.9 Active 51797627 Problem Intractable migraine without aura and with status migrainosus G43.011 Active 660297033 Problem History of bariatric surgery Z98.84 Active 174856869 Problem Chronic pain G89.29 Active 89653908 Problem Arthritis M19.90 Active 2224809 Problem Mixed hyperlipidemia E78.2 Active 910580306 Problem Chronic fatigue R53.82 Active 51674083 ALLERGIES Unknown Allergies SOCIAL HISTORY No smoking Hx information available PLAN OF CARE VITAL SIGNS MEDICATIONS Unknown Medications RESULTS No Results PROCEDURES No Known procedures IMMUNIZATIONS No Known Immunizations
--- OUTSIDE RECORDS SUMMARY | 2018-01-16 04:06 | XMS REPORT ---
Author Author LEV PEARSON [facility] Address [address] [place] [address] Care Team Providers Care Copyist Name Role Phone LEV PEARSON Unavailable PROBLEMS Type Condition ICD9-CM Code BMJ38-RM Code Onset Dates Condition Status SNOMED Code Problem Migraine without aura and without status migrainosus, not intractable G43.009 Active 285698639 Problem IBS (irritable bowel syndrome) K58.9 Active 60299756 Problem Intractable migraine without aura and with status migrainosus G43.011 Active 077561174 Problem History of bariatric surgery Z98.84 Active 175714914 Problem Chronic pain G89.29 Active 85713497 Problem Arthritis M19.90 Active 0911829 Problem Mixed hyperlipidemia E78.2 Active 318092305 Problem Chronic fatigue R53.82 Active 26952708 ALLERGIES Unknown Allergies SOCIAL HISTORY No smoking Hx information available PLAN OF CARE VITAL SIGNS MEDICATIONS Medication Instructions Dosage Frequency Start Date End Date Duration Status Fentanyl 50 MCG/HR Transdermal every 72 hours 1 patch to skin Nov, Active RESULTS No Results PROCEDURES No Known procedures IMMUNIZATIONS No Known Immunizations
--- OUTSIDE RECORDS SUMMARY | 2018-01-16 04:06 | XMS REPORT ---
Author Author LEV PEARSON [facility] eClinicalWorks Address Unknown Phone Unavailable Care Team Providers Care Wheel Cutter Name Role Phone LEV PEARSON CP Unavailable [...] Date End Date Status Dosage Myrbetriq [facility] [address]-30 50 MG Orally Once a day 1 tablet Results No Known Results Summary Purpose eClinicalWorks Submission
--- OUTSIDE RECORDS SUMMARY | 2018-01-16 04:06 | XMS REPORT ---
Author Author LEV PEARSON [facility] eClinicalWorks Address Unknown Phone Unavailable Care Team Providers Care Process Development Technician Name Role Phone LEV PEARSON CP Unavailable Allergies, Adverse Reactions, Alerts Substance Reaction Event Type Adhesive Tape Info Not Available Drug Allergy Tetanus Info Not Available Drug Allergy Wellbutrin Info [...] myositis 729.1 Active Assessment Diarrhea R19.7 Active Problem Vitamin D deficiency 268.9 Active [...] Instructions Start Date End Date Status Dosage Doxepin HCl [facility] [address]-81 50 MG Orally Once a day Oct 28, 2015 1 capsule at bedtime Tizanidine HCl [facility] [address]-64 4 MG Orally every 8 hrs Oct 07, 2015 2 capsule as needed Colestid [facility] [address]-10 1 GM Orally Once a day at bedtime Oct 07, 2015 1 tablet Questran [facility] [address]-05 4 GM Orally Twice a day May 27, 2015 1 packet mixed with water or non-carbonated drink Lomotil [facility] [address]-43 2.5-0.025 MG Orally Four times a day Aug 23, 2015 1 tablet as needed Amerge [facility] [address]-14 2.5 MG Orally Once a day 1 tablet as needed one time Zofran ODT [facility] [address]-94 8 mg Sep 11, 2013 not defined Myrbetriq [facility] [address]-91 50 MG Orally Once a day 1 tablet Acidophilus [facility] 50820809386 100 MG Orally 2-3 times a day until diarrhea stops 1 capsule Vitamin D2 [facility] 24322-04705 50,000 unit Aug 17, 2014 take 1 capsule (50,000 unit) by oral route once weekly for 12 weeks Gabapentin [facility] 95006343792 800 MG Orally 5 times a day 1 tablet Zecuity [facility] [address]-00 6.5 MG/4HR Transdermal not defined Propranolol HCl CR [facility] [address]-14 120 MG Orally Once a day 1 capsule Voltaren [facility] [address]-70 1 % Aug 17, 2014 1 Application by Topical route 4 times per day buspirone [place] 0 10 mg Dec 21, 2014 1 Tablet by Oral route 6 times per day Phenergan [facility] 70916763645 25 MG 1 tablet by Oral route 1 time per day PRN at hs Duragesic [facility] 0 50 mcg/hr topical every 72 hours January 09, 2015 1 PATCH Sumavel DosePro [facility] [address]-76 6 mg/0.5 mL Dec 08, 2011 inject 6 mg by subcutaneous route once; may be repeated 1 hour after the first dose if headache pain returns or increases in severity; do not exceed 2 doses within 24 hours Fioricet [facility] [address]-86 50-300-40 MG Orally every 4 hrs prn 1 capsule as needed Furosemide [facility] [address]-68 20 Orally Once a day prn 2 tablet Nexium [facility] 95097578618 40 MG Orally Once a day TAKE 1 CAPSULE Metoclopramide HCl [facility] 23171594750 10 MG TAKE ONE TABLET BY MOUTH THREE TIMES DAILY - TAKE BEFORE MEALS Diphenoxylate-Atropine [facility] [address]-16 2.5-0.025 MG Four times a day 1-2 Procedures Procedure Coding System Code Date Office Visit, Mauro Pt., Level 2 CPT-4 96520 Oct 28, 2015 [facility] VISIT ESTABLISHED PATIENT CPT-4 G0467 Oct 28, 2015 Vital Signs Date/Time: Oct 28, 2015 Temperature 98.4 F Weight 293.3 lbs Height 62 in BMI 53.64 Index Blood Pressure Diastolic 76 mmHg Blood Pressure Systolic 114 mmHg Cardiac Monitoring Heart Rate 88 bpm Results No Known Results Summary Purpose eClinicalWorks Submission
--- OUTSIDE RECORDS SUMMARY | 2018-01-16 04:06 | XMS REPORT ---
Author Author LEV PEARSON Organization [employer] Address Unknown Phone Unavailable Care Team Providers Care Landscaping And Groundskeeping Laborer Name Role Phone LEV PEARSON CP Unavailable [...]
--- OUTSIDE RECORDS SUMMARY | 2018-01-16 04:07 | XMS REPORT | Continuity of Care Document ---
Author Author [facility] Address Unknown Phone Unavailable Allergies Active Description Code Type Severity Reaction Onset Reported/Identified Relationship to Patient Clinical Status Yes Sulfa (Sulfonamide Antibiotics) [id number] Drug Allergy Mild N/A 2011 Yes ADHESIVE TAPE OA N/A N/A 12/08/2011 Yes Bactrim Drug Allergy N/A N/A 12/08/2011 Yes COCKROACH FECES OA N/A N/A 12/08/2011 Yes COCKROACH, CITIZEN OF [place] OA N/A N/A 12/08/2011 Yes DUST MITE OA N/A N /A 12/08/2011 Yes SHRIMP Food Allergy N/A N/A 12/08/2011 Yes ADHESIVE TAPE OA 12/08/2011 Yes Bactrim Drug Allergy 12/08/2011 Yes COCKROACH FECES OA 12/08/2011 Yes COCKROACH, [place]IZ[place] OA 12/08/2011 Yes DUST MITE OA 12/08/2011 Yes SHRIMP Food Allergy 12/08/2011 Yes Wellbutrin Drug Allergy N/A N/A 01/26/2012 Yes Wellbutrin Drug Allergy 01/26/2012 Yes BACTRIM 55828 DRUG N/A N&V~Swelling 11/16/2012 Yes BACTRIM DRUG N/A NTV~Swelling 11/16/2012 Yes SULFA ANTIBIOTICS 33 Drug Class N/A N&V 11/16/2012 Yes SULFA ANTIBIOTICS 34 Drug Class N/A NTV 11/16/2012 Yes TETANUS TOXOIDS 101 Drug Class N/A Swelling 11/16/2012 Yes bupropion HCl [id number] Drug Allergy Unknown HIVES 02/24/2014 Yes sulfamethoxazole [id number] Drug Allergy Unknown BREAKS OUT 02/24/2014 Yes TAPE TAPE Unknown BREAKS OUT 02/24/2014 Yes Tetanus Vaccines Toxoid [id number] Drug Allergy Unknown N/A 02/24/2014 Yes Tetanus Vaccines and Toxoid [id number] Drug Allergy Unknown N/A 2013 Yes trimethoprim [id number] Drug Allergy Unknown BREAKS OUT 02/24/2014 Yes ADHESIVE TAPE 19359 Chemical N/ A Itching 06/14/2014 Yes BUPROPION 93331 DRUG INGREDI N/ A Other 06/14/2014 Yes METHYLPHENIDATE 83268 DRUG INGREDI N/A Other 06/14/2014 Yes TRAMADOL 94373 DRUG INGREDI N/ A Other 06/14/2014 Medications Medication Packaging Start Date Stop Date Route Dosage Sig ONABOTULINUMTOXINA 200 UNITS IJ [facility] 12/26/2015 Intradermal 200 ONCE ONABOTULINUMTOXINA 200 UNITS IJ [facility] 04/23/2016 Intradermal 200 ONCE ONABOTULINUMTOXINA 100 UNITS IJ [facility] 07/22/2016 Intradermal 200 ONCE ONABOTULINUMTOXINA 200 UNITS IJ [facility] 11/05/2016 Intradermal 200 ONCE ONABOTULINUMTOXINA 200 UNITS IJ [facility] 03/18/2017 Intradermal 200 ONCE ONABOTULINUMTOXINA 200 UNITS IJ [facility] 06/10/2017 Intradermal 200 ONCE ONABOTULINUMTOXINA 200 UNITS IJ [facility] 09/02/2017 Intradermal 200 ONCE ONABOTULINUMTOXINA 200 UNITS IJ [facility] 12/09/2017 Intradermal 155 ONCE Problems Date Dx Coded Attending Type Code Diagnosis Diagnosed By 11/21/2011 Ot 346.90 MIGRAINE UNSPECIFIED W/O INTRACT MGRN W/ 11/21/2011 Ot 784.0 HEADACHE 11/22/2011 Ot 346.90 MIGRAINE UNSPECIFIED W/O INTRACT MGRN W11/22/2011 Ot 784.0 HEADACHE 12/08/2011 JOHN PAUL LYLE DO 278.01 MORBID OBESITY 12/08/2011 JOHN PAUL LYLE DO 346.90 MIGRAINE UNSPECIFIED WITHOUT MENTION OF INTRACTABLE MIGRAINE WITHOUT MENTION OF STATUS MIGRAINOSUS 12/08/2011 JOHN PAUL LYLE DO 729.1 MYALGIA AND MYOSITIS UNSPECIFIED 12/08/2011 JOHN PAUL LYLE DO 278.01 MORBID OBESITY 12/08/2011 JOHN PAUL LYLE DO 346.90 MIGRAINE UNSPECIFIED WITHOUT MENTION OF INTRACTABLE MIGRAINE WITHOUT MENTION OF STATUS MIGRAINOSUS 12/08/2011 JOHN PAUL LYLE DO 729.1 MYALGIA AND MYOSITIS UNSPECIFIED 12/08/2011 278.01 MORBID OBESITY 12/08/2011 346.90 MIGRAINE UNSPECIFIED WITHOUT MENTION OF INTRACTABLE MIGRAINE WITHOUT MENTION OF STATUS MIGRAINOSUS 12/08/2011 729.1 MYALGIA AND MYOSITIS UNSPECIFIED 12/08/2011 278.01 MORBID OBESITY 12/08/2011 346.90 MIGRAINE UNSPECIFIED WITHOUT MENTION OF INTRACTABLE MIGRAINE WITHOUT MENTION OF STATUS MIGRAINOSUS 12/08/2011 729.1 MYALGIA AND MYOSITIS UNSPECIFIED 12/08/2011 JOHN PAUL LYLE DO 278.01 MORBID OBESITY 12/08/2011 JOHN PAUL LYLE DO 346.90 MIGRAINE UNSPECIFIED WITHOUT MENTION OF INTRACTABLE MIGRAINE WITHOUT MENTION OF STATUS MIGRAINOSUS 12/08/2011 JOHN PAUL LYLE DO 729.1 MYALGIA AND MYOSITIS UNSPECIFIED 12/08/2011 JOHN PAUL LYLE DO 278.01 MORBID OBESITY 12/08/2011 JOHN PAUL LYLE DO 346.90 MIGRAINE UNSPECIFIED WITHOUT MENTION OF INTRACTABLE MIGRAINE WITHOUT MENTION OF STATUS MIGRAINOSUS 12/08/2011 JOHN PAUL LYLE DO 729.1 MYALGIA AND MYOSITIS UNSPECIFIED 12/08/2011 LEV PEARSON MD 278.01 MORBID OBESITY 12/08/2011 LEV PEARSON MD 346.90 MIGRAINE UNSPECIFIED WITHOUT MENTION OF INTRACTABLE MIGRAINE WITHOUT MENTION OF STATUS MIGRAINOSUS 12/08/2011 LEV PEARSON MD 729.1 MYALGIA AND MYOSITIS UNSPECIFIED 12/08/2011 278.01 MORBID OBESITY 12/08/2011 346.90 MIGRAINE UNSPECIFIED WITHOUT MENTION OF INTRACTABLE MIGRAINE WITHOUT MENTION OF STATUS MIGRAINOSUS 12/08/2011 729.1 MYALGIA AND MYOSITIS UNSPECIFIED 12/08/2011 278.01 MORBID OBESITY 12/08/2011 346.90 MIGRAINE UNSPECIFIED WITHOUT MENTION OF INTRACTABLE MIGRAINE WITHOUT MENTION OF STATUS MIGRAINOSUS 12/08/2011 729.1 MYALGIA AND MYOSITIS UNSPECIFIED 12/08/2011 278.01 MORBID OBESITY 12/08/2011 346.90 MIGRAINE UNSPECIFIED WITHOUT MENTION OF INTRACTABLE MIGRAINE WITHOUT MENTION OF STATUS MIGRAINOSUS 12/08/2011 729.1 MYALGIA AND MYOSITIS UNSPECIFIED 12/08/2011 JOHN PAUL LYLE DO 278.01 MORBID OBESITY 12/08/2011 JOHN PAUL LYLE DO 346.90 MIGRAINE UNSPECIFIED WITHOUT MENTION OF INTRACTABLE MIGRAINE WITHOUT MENTION OF STATUS MIGRAINOSUS 12/08/2011 JOHN PAUL LYLE DO 729.1 MYALGIA AND MYOSITIS UNSPECIFIED 12/08/2011 LEV PEARSON MD 278.01 MORBID OBESITY 12/08/2011 LEV PEARSON MD 346.90 MIGRAINE UNSPECIFIED WITHOUT MENTION OF INTRACTABLE MIGRAINE WITHOUT MENTION OF STATUS MIGRAINOSUS 12/08/2011 LEV PEARSON MD 729.1 MYALGIA AND MYOSITIS UNSPECIFIED 12/08/2011 VALDO SMITH JOHN PAUL K 278.01 MORBID OBESITY 12/08/2011 VALDO SMITH JOHN PAUL K 346.90 MIGRAINE UNSPECIFIED WITHOUT MENTION OF INTRACTABLE MIGRAINE WITHOUT MENTION OF STATUS MIGRAINOSUS 12/08/2011 VALDO SMITH JOHN PAUL K 729.1 MYALGIA AND MYOSITIS UNSPECIFIED 12/08/2011 278.01 MORBID OBESITY 12/08/2011 346.90 MIGRAINE UNSPECIFIED WITHOUT MENTION OF INTRACTABLE MIGRAINE WITHOUT MENTION OF STATUS MIGRAINOSUS 12/08/2011 729.1 MYALGIA AND MYOSITIS UNSPECIFIED 12/08/2011 LEV PEARSON MD 278.01 MORBID OBESITY 12/08/2011 LEV PEARSON MD 346.90 MIGRAINE UNSPECIFIED WITHOUT MENTION OF INTRACTABLE MIGRAINE WITHOUT MENTION OF STATUS MIGRAINOSUS 12/08/2011 LEV PEARSON MD 729.1 MYALGIA AND MYOSITIS UNSPECIFIED 12/08/2011 LEV PEARSON MD 278.01 MORBID OBESITY 12/08/2011 LEV PEARSON MD 346.90 MIGRAINE UNSPECIFIED WITHOUT MENTION OF INTRACTABLE MIGRAINE WITHOUT MENTION OF STATUS MIGRAINOSUS 12/08/2011 LEV PEARSON MD 729.1 MYALGIA AND MYOSITIS UNSPECIFIED 12/08/2011 AURELIA DELEON MD 278.01 MORBID OBESITY 12/08/2011 AURELIA DELEON MD 346.90 MIGRAINE UNSPECIFIED WITHOUT MENTION OF INTRACTABLE MIGRAINE WITHOUT MENTION OF STATUS MIGRAINOSUS 12/08/2011 AURELIA DELEON MD 729.1 MYALGIA AND MYOSITIS UNSPECIFIED 12/08/2011 LEV PEARSON MD 278.01 MORBID OBESITY 12/08/2011 LEV PEARSON MD 346.90 MIGRAINE UNSPECIFIED WITHOUT MENTION OF INTRACTABLE MIGRAINE WITHOUT MENTION OF STATUS MIGRAINOSUS 12/08/2011 LEV PEARSON MD 729.1 MYALGIA AND MYOSITIS UNSPECIFIED 12/08/2011 LEV PEARSON MD 278.01 MORBID OBESITY 12/08/2011 LEV PEARSON MD 346.90 MIGRAINE UNSPECIFIED WITHOUT MENTION OF INTRACTABLE MIGRAINE WITHOUT MENTION OF STATUS MIGRAINOSUS 12/08/2011 LEV PEARSON MD 729.1 MYALGIA AND MYOSITIS UNSPECIFIED 12/08/2011 LVE PEARSON MD 278.01 MORBID OBESITY 12/08/2011 LEV PEARSON MD 346.90 MIGRAINE UNSPECIFIED WITHOUT MENTION OF INTRACTABLE MIGRAINE WITHOUT MENTION OF STATUS MIGRAINOSUS 12/08/2011 LEV PEARSON MD 729.1 MYALGIA AND MYOSITIS UNSPECIFIED 12/08/2011 LEV PEARSON MD 278.01 MORBID OBESITY 12/08/2011 LEV PEARSON MD 346.90 MIGRAINE UNSPECIFIED WITHOUT MENTION OF INTRACTABLE MIGRAINE WITHOUT MENTION OF STATUS MIGRAINOSUS 12/08/2011 LEV PEARSON MD 729.1 MYALGIA AND MYOSITIS UNSPECIFIED 12/15/2011 Ot 346.90 MIGRAINE UNSPECIFIED W/O INTRACT MGRN W/ 12/15/2011 Ot 784.0 HEADACHE 01/19/2012 Ot 784.0 HEADACHE 01/20/2012 Ot 346.90 MIGRAINE UNSPECIFIED W/O INTRACT MGRN W/ 01/20/2012 Ot 784.0 HEADACHE 03/31/2012 Ot 346.90 MIGRAINE UNSPECIFIED W/O INTRACT MGRN W/ 04/01/2012 Ot 346.90 MIGRAINE UNSPECIFIED W/O INTRACT MGRN W/ 04/01/2012 Ot 784.0 HEADACHE 06/03/2012 Ot 784.0 HEADACHE 06/04/2012 Ot 346.90 MIGRAINE UNSPECIFIED W/O INTRACT MGRN W/ 06/04/2012 Ot 784.0 HEADACHE 06/16/2012 Ot 346.90 MIGRAINE UNSPECIFIED W/O INTRACT MGRN W/ 06/16/2012 Ot 784.0 HEADACHE 06/17/2012 Ot 784.0 HEADACHE 06/23/2012 Ot 346.90 MIGRAINE UNSPECIFIED W/O INTRACT MGRN W/ 07/29/2012 Ot 784.0 HEADACHE 11/03/2012 716.90 UNSPECIFIED ARTHROPATHY SITE UNSPECIFIED 11/03/2012 JOHN PAUL LYLE DO 716.90 UNSPECIFIED ARTHROPATHY SITE UNSPECIFIED 11/03/2012 JOHN PAUL LYLE DO 716.90 UNSPECIFIED ARTHROPATHY SITE UNSPECIFIED 11/03/2012 LEV PEARSON MD 716.[place] UNSPECIFIED ARTHROPATHY SITE UNSPECIFIED 11/03/2012 716.90 UNSPECIFIED ARTHROPATHY SITE UNSPECIFIED 11/03/2012 716.90 UNSPECIFIED ARTHROPATHY SITE UNSPECIFIED 11/03/2012 716.90 UNSPECIFIED ARTHROPATHY SITE UNSPECIFIED 11/03/2012 JOHN PAUL LYLE DO 716.90 UNSPECIFIED ARTHROPATHY SITE UNSPECIFIED 11/03/2012 LEV PEARSON MD 716.90 UNSPECIFIED ARTHROPATHY SITE UNSPECIFIED 11/03/2012 JOHN PAUL LYLE DO 716.90 UNSPECIFIED ARTHROPATHY SITE UNSPECIFIED 11/03/2012 LEV PEARSON MD 716.90 UNSPECIFIED ARTHROPATHY SITE UNSPECIFIED 11/03/2012 LEV PEARSON MD6.90 UNSPECIFIED ARTHROPATHY SITE UNSPECIFIED 11/03/2012 AURELIA DELEON MD 716.90 UNSPECIFIED ARTHROPATHY SITE UNSPECIFIED 11/03/2012 LEV PEARSON MD 716.90 UNSPECIFIED ARTHROPATHY SITE UNSPECIFIED 11/03/2012 LEV PEARSON MD 716.90 UNSPECIFIED ARTHROPATHY SITE UNSPECIFIED 11/03/2012 LEV PEARSON MD 716.[place] UNSPECIFIED ARTHROPATHY SITE UNSPECIFIED 11/03/2012 LEV PEARSON MD 716.[place] UNSPECIFIED ARTHROPATHY SITE UNSPECIFIED 12/23/2012 JOHN PAUL LYLE DO 356.9 NEUROPATHY 12/23/2012 JOHN PAUL LYLE DO 729.2 NEURALGIA NEURITIS AND RADICULITIS UNSPECIFIED 12/23/2012 JOHN PAUL LYLE DO 356.9 NEUROPATHY 12/23/2012 JOHN PAUL LYLE DO 729.2 NEURALGIA NEURITIS AND RADICULITIS UNSPECIFIED 12/23/2012 LEV PEARSON MD 356.9 NEUROPATHY 12/23/2012 LEV PEARSON MD 729.2 NEURALGIA NEURITIS AND RADICULITIS UNSPECIFIED 12/23/2012 356.9 NEUROPATHY 12/23/2012 729.2 NEURALGIA NEURITIS AND RADICULITIS UNSPECIFIED 12/23/2012 356.9 NEUROPATHY 12/23/2012 729.2 NEURALGIA NEURITIS AND RADICULITIS UNSPECIFIED 12/23/2012 356.9 NEUROPATHY 12/23/2012 729.2 NEURALGIA NEURITIS AND RADICULITIS UNSPECIFIED 12/23/2012 JOHN PAUL LYLE DO 356.9 NEUROPATHY 12/23/2012 JOHN PAUL LYLE DO 729.2 NEURALGIA NEURITIS AND RADICULITIS UNSPECIFIED 12/23/2012 LEV PEARSON MD 356.9 NEUROPATHY 12/23/2012 LILI DIAMOND, LEV 729.2 NEURALGIA NEURITIS AND RADICULITIS UNSPECIFIED 12/23/2012 JOHN PAUL LYLE DO 356.9 NEUROPATHY 12/23/2012 JOHN PAUL LYLE DO 729.2 NEURALGIA NEURITIS AND RADICULITIS UNSPECIFIED 12/23/2012 LEV PEARSON MD 356.9 NEUROPATHY 12/23/2012 LILI DIAMOND, LEV 729.2 NEURALGIA NEURITIS AND RADICULITIS UNSPECIFIED 12/23/2012 LEV PEARSON MD 356.9 NEUROPATHY 12/23/2012 LEV PEARSON MD 729.2 NEURALGIA NEURITIS AND RADICULITIS UNSPECIFIED 12/23/2012 AURELIA DELEON MD 356.9 NEUROPATHY 12/23/2012 AURELIA DELEON MD 729.2 NEURALGIA NEURITIS AND RADICULITIS UNSPECIFIED 12/23/2012 LEV PEARSON MD 356.9 NEUROPATHY 12/23/2012 LEV PEARSON MD 729.2 NEURALGIA NEURITIS AND RADICULITIS UNSPECIFIED 12/23/2012 LEV PEARSON MD 356.9 NEUROPATHY 12/23/2012 LEV PEARSON MD 729.2 NEURALGIA NEURITIS AND RADICULITIS UNSPECIFIED 12/23/2012 LEV PEARSON MD 356.9 NEUROPATHY 12/23/2012 LEV PEARSON MD 729.2 NEURALGIA NEURITIS AND RADICULITIS UNSPECIFIED 12/23/2012 LEV PEARSON MD 356.9 NEUROPATHY 12/23/2012 LEV PEARSON MD 729.2 NEURALGIA NEURITIS AND RADICULITIS UNSPECIFIED 01/05/2013 JOHN PAUL LYLE DO 717.7 CHONDROMALACIA OF PATELLA 01/05/2013 LEV PEARSON MD 717.7 CHONDROMALACIA OF [place] 01/05/2013 717.7 CHONDROMALACIA OF [place] 01/05/2013 717.7 CHONDROMALACIA OF [place] 01/05/2013 717.7 CHONDROMALACIA OF [place] 01/05/2013 JOHN PAUL LYLE DO 717.7 CHONDROMALACIA OF [place] 01/05/2013 LEV PEARSON MD 717.7 CHONDROMALACIA OF [place] 01/05/2013 JOHN PAUL LYLE DO 717.7 CHONDROMALACIA OF [place] 01/05/2013 LEV PEARSON MD 717.7 CHONDROMALACIA OF [place] 01/05/2013 LEV PEARSON MD 717.7 CHONDROMALACIA OF [place] 01/05/2013 AURELIA DELEON MD 717.7 CHONDROMALACIA OF [place] 01/05/2013 LEV PEARSON MD.7 CHONDROMALACIA OF [place] 01/05/2013 LEV PEARSON MD7.7 CHONDROMALACIA OF [place] 01/05/2013 LEV PEARSON MD.7 CHONDROMALACIA OF [place] 01/05/2013 LEV PEARSON MD.7 CHONDROMALACIA OF [place] 01/13/2013 Ot 327.23 OBSTRUCTIVE SLEEP APNEA (ADULT) (PEDIATR 01/30/2013 LEV PEARSON MD 790.29 OTHER ABNORMAL GLUCOSE 01/30/2013 790.29 OTHER ABNORMAL GLUCOSE 01/30/2013 790.29 OTHER ABNORMAL GLUCOSE 01/30/2013 790.29 OTHER ABNORMAL GLUCOSE 01/30/2013 JOHN PAUL LYLE DO 790.29 OTHER ABNORMAL GLUCOSE 01/30/2013 LEV PEARSON MD 790.29 OTHER ABNORMAL GLUCOSE 01/30/2013 JOHN PAUL LYLE DO 790.29 OTHER ABNORMAL GLUCOSE 01/30/2013 LEV PEARSON MD 790.29 OTHER ABNORMAL GLUCOSE 01/30/2013 LEV PEARSON MD 790.29 OTHER ABNORMAL GLUCOSE 01/30/2013 AURELIA DELEON MD 790.29 OTHER ABNORMAL GLUCOSE 01/30/2013 LEV PEARSON MD 790.29 OTHER ABNORMAL GLUCOSE 01/30/2013 LEV PEARSON MD 790.29 OTHER ABNORMAL GLUCOSE 01/30/2013 LEV PEARSON MD 790.29 OTHER ABNORMAL GLUCOSE 01/30/2013 LEV PEARSON MD 790.29 OTHER ABNORMAL GLUCOSE 02/07/2013 Ot 715.36 LOC OSTEOARTH NOS-L/LEG 02/07/2013 Ot 719.46 JOINT PAIN-L /LEG 02/10/2013 Ot 719.46 JOINT PAIN-L /LEG 02/22/2013 Ot 717.7 CHONDROMALACIA PATELLAE 02/22/2013 Ot 733.92 CHONDROMALACIA 02/22/2013 Ot V57.1 PHYSICAL THERAPY NEC 02/22/2013 Ot V58.69 OTH MED,LT, CURRENT USE 04/22/2013 CHAYA BROUSSARD DO Ot 719.46 JOINT PAIN-L/LEG 05/18/2013 JOHN PAUL LYLE DO 627.2 SYMPTOMATIC MENOPAUSAL OR FEMALE CLIMACTERIC STATES 05/18/2013 LEV PEARSON MD 627.2 SYMPTOMATIC MENOPAUSAL OR FEMALE CLIMACTERIC STATES 05/18/2013 JOHN PAUL LYLE DO 627.2 SYMPTOMATIC MENOPAUSAL OR FEMALE CLIMACTERIC STATES 05/18/2013 LEV PEARSON MD.2 SYMPTOMATIC MENOPAUSAL OR FEMALE CLIMACTERIC STATES 05/18/2013 LEV PEARSON MD7.2 SYMPTOMATIC MENOPAUSAL OR FEMALE CLIMACTERIC STATES 05/18/2013 ADRIENNE DIAMOND, AURELIA [place] 627.2 SYMPTOMATIC MENOPAUSAL OR FEMALE CLIMACTERIC STATES 05/18/2013 LEV PEARSON MD.2 SYMPTOMATIC MENOPAUSAL OR FEMALE CLIMACTERIC STATES 05/18/2013 LEV PEARSON MD7.2 SYMPTOMATIC MENOPAUSAL OR FEMALE CLIMACTERIC STATES 05/18/2013 LEV PEARSON MD7.2 SYMPTOMATIC MENOPAUSAL OR FEMALE CLIMACTERIC STATES 05/18/2013 LEV PEARSON MD7.2 SYMPTOMATIC MENOPAUSAL OR FEMALE CLIMACTERIC STATES 07/24/2013 CAIT CARBAJAL BIOSECURITY OFFICER Ot 717.7 CHONDROMALACIA PATELLAE 07/24/2013 CAIT CARBAJAL [employer]ITY OFFICER Ot 719.06 JOINT EFFUSION-L/LEG 07/24/2013 CAIT CARBAJAL [employer]SECURITY OFFICER Ot V57.1 PHYSICAL THERAPY NEC 08/15/2013 CHAYA BROUSSARD DO Ot 727.51 POPLITEAL SYNOVIAL CYST 08/15/2013 CHAYA BROUSSARD DO Ot 729.5 PAIN IN LIMB 08/29/2013 CHAYA BROUSSARD DO Ot 599.0 URIN TRACT INFECTION NOS 08/29/2013 CHAYA BROUSSARD DO Ot 787.01 NAUSEA WITH VOMITING 08/29/2013 CHAYA BROUSSARD DO Ot 787.91 DIARRHEA 09/11/2013 LEV PEARSON MD 536.8 DYSPEPSIA AND OTHER SPECIFIED DISORDERS OF FUNCTION OF STOMACH 09/11/2013 VALDO SMITH JOHN PAUL Jaleesa 536.8 DYSPEPSIA AND OTHER SPECIFIED DISORDERS OF FUNCTION OF STOMACH 09/11/2013 LEV PEARSON MD 536.8 DYSPEPSIA AND OTHER SPECIFIED DISORDERS OF FUNCTION OF STOMACH 09/11/2013 LEV PEARSON MD 536.8 DYSPEPSIA AND OTHER SPECIFIED DISORDERS OF FUNCTION OF STOMACH 09/11/2013 AURELIA DELEON MD 536.8 DYSPEPSIA AND OTHER SPECIFIED DISORDERS OF FUNCTION OF STOMACH 09/11/2013 LEV PEARSON MD 536.8 DYSPEPSIA AND OTHER SPECIFIED DISORDERS OF FUNCTION OF STOMACH 09/11/2013 LEV PEARSON MD 536.8 DYSPEPSIA AND OTHER SPECIFIED DISORDERS OF FUNCTION OF STOMACH 09/11/2013 LEV PEARSON MD 536.8 DYSPEPSIA AND OTHER SPECIFIED DISORDERS OF FUNCTION OF STOMACH 09/11/2013 LEV PEARSON MD 536.8 DYSPEPSIA AND OTHER SPECIFIED DISORDERS OF FUNCTION OF STOMACH 10/24/2013 CHACE BRADY MD Ot 459.81 VENOUS INSUFFICIENCY NOS 11/22/2013 CHACE BRADY MD Ot 999.31 OTHER AND UNSPECIFIED INFECTION DT CENTR 11/25/2013 QASIM ACOSTA MD Ot 112.3 CUTANEOUS CANDIDIASIS 11/25/2013 QASIM ACOSTA MD Ot 782.1 NONSPECIF SKIN ERUPT NEC 02/24/2014 MARLEN DIAMOND FACC, ALI FACP CCDS Ot 278.00 OBESITY, NOS 02/24/2014 MARLEN DIAMOND FACC, ALI FACP CCDS Ot 288.60 LEUKOCYTOSIS, UNSPECIFIED 02/24/2014 MARLEN DIAMOND FACC, ALI FACP CCDS Ot 346.90 MIGRAINE UNSPECIFIED W/O INTRACT MGRN W/ 02/24/2014 MARLEN DIAMOND FACC, ALI FACP CCDS Ot 558.9 NONINF GASTROENTERIT NEC 02/24/2014 MARLEN DIAMOND FACC, ALI FACP CCDS Ot 729.1 MYALGIA AND MYOSITIS NOS 02/24/2014 MARLEN DIAMOND FACC, ALI FACP CCDS Ot 780.57 UNSPECIFIED SLEEP APNEA 02/24/2014 MARLEN DIAMOND FACC, ALI FACP CCDS Ot 780.71 CHRONIC FATIGUE SYNDROME 02/24/2014 MARLEN DIAMOND FACC, ALI FACP CCDS Ot 786.59 CHEST PAIN NEC 02/24/2014 MARLEN DIAMOND [facility] CCDS Ot V58.69 OTH MED,LT,CURRENT USE 02/24/2014 MARLEN DIAMOND [facility] CCDS Ot V85.43 BODY MASS INDEX 50.0-59.9, ADULT 04/04/2014 CAITLYN DIAMOND, CHACE Crowder Ot 459.81 VENOUS INSUFFICIENCY NOS 04/04/2014 CAITLYN DIAMOND, CHACE Crowder Ot 787.20 DYSPHAGIA, UNSPECIFIED 04/30/2014 LEV PEARSON MD 533.90 PEPTIC ULCER OF UNSPECIFIED SITE UNSPECIFIED ACUTE OR CHRONIC WITHOUT HEMORRHAGE OR PERFORATION WITHOUT OBSTRUCTION 04/30/2014 LEV PEARSON MD 533.90 PEPTIC ULCER OF UNSPECIFIED SITE UNSPECIFIED ACUTE OR CHRONIC WITHOUT HEMORRHAGE OR PERFORATION WITHOUT OBSTRUCTION 04/30/2014 LILI DIAMOND, LEV 533.90 PEPTIC ULCER OF UNSPECIFIED SITE UNSPECIFIED ACUTE OR CHRONIC WITHOUT HEMORRHAGE OR PERFORATION WITHOUT OBSTRUCTION 04/30/2014 LILI DIAMOND, LEV 533.90 PEPTIC ULCER OF UNSPECIFIED SITE UNSPECIFIED ACUTE OR CHRONIC WITHOUT HEMORRHAGE OR PERFORATION WITHOUT OBSTRUCTION 08/17/2014 LILI DIAMOND, LEV V04.81 FLU SHOT 08/17/2014 LILI DIAMOND, LEV V04.81 FLU SHOT 08/17/2014 LILI DIAMOND, LEV V04.81 FLU SHOT 08/19/2014 LILI DIAMOND, LEV Frazier Ot 784.0 HEADACHE 09/24/2014 LILI DIAMOND, LEV 461.9 ACUTE SINUSITIS UNSPECIFIED 09/24/2014 LILI DIAMOND, LEV 461.9 ACUTE SINUSITIS UNSPECIFIED 10/15/2014 CRAIG DIAMOND, CHAPIN Kan Ot 787.91 DIARRHEA 10/26/2014 LILI DIAMOND, LEV Frazier Ot 784.0 10/30/2014 LILI DIAMOND, LEV Frazier Ot 784.0 11/13/2014 LILI DIAMOND, LEV Frazier Ot 784.0 11/26/2014 LILI DIAMOND, LEV Frazier Ot 784.0 HEADACHE 11/27/2014 LILI DIAMOND, LEV Frazier Ot 784.0 12/04/2014 LILI DIAMOND, LEV Frazier Ot 784.0 12/11/2014 LILI DIAMOND, LEV Frazier Ot 784.0 12/11/2014 LILI DIAMOND, LEV F Ot 784.0 12/11/2014 LILI DIAMOND, LEV F Ot 784.0 12/11/2014 LILI DIAMOND, LEV F Ot 784.0 12/11/2014 LILI DIAMOND, LEV F Ot 784.0 12/12/2014 LILI DIAMOND, LEV F Ot 784.0 12/12/2014 LILI DIAMOND, LEV F Ot 784.0 02/05/2015 LILI DIAMOND, LEV F Ot 784.0 02/05/2015 LILI DIAMOND, LEV F Ot 784.0 03/11/2015 LILI DIAMOND, LEV F Ot 784.0 HEADACHE 03/15/2015 LILI DIAMOND, LEV F Ot 784.0 03/15/2015 LILI DIAMOND, LEV F Ot 784.0 03/15/2015 LILI DIAMOND, LEV F Ot 784.0 03/15/2015 LILI DIAMOND, LEV F Ot 784.0 03/15/2015 LILI DIAMOND, LEV F Ot 784.0 03/15/2015 LILI DIAMOND, LEV F Ot 784.0 03/18/2015 LILI DIAMOND, LEV F Ot 784.0 04/30/2015 LILI DIAMOND, LEV F Ot 784.0 05/08/2015 LILI DIAMOND, LEV F Ot 784.0 05/21/2015 LILI DIAMOND, LEV F Ot 784.0 05/24/2015 LYLE DO, JOHN PAUL K Ot 599.70 06/04/2015 LILI DIAMOND, LEV F Ot 784.0 06/11/2015 LILI DIAMOND, LEV F Ot 784.0 06/12/2015 LYLE DO, JOHN PAUL K Ot 599.70 06/13/2015 LILI DIAMOND, LEV F Ot 784.0 HEADACHE 06/14/2015 LILI DIAMOND, LEV F Ot 784.0 06/14/2015 LILI DIAMOND, LEV F Ot 784.0 06/14/2015 LILI DIAMOND, LEV F Ot 784.0 06/14/2015 LILI DIAMOND, LEV F Ot 784.0 06/14/2015 LILI DIAMOND, LEV F Ot 784.0 06/17/2015 LILI DIAMOND, LEV F Ot 784.0 06/17/2015 LILI DIAMOND, LEV Frazier Ot 784.0 06/17/2015 LILI DIAMOND, LEV Frazier Ot 784.0 06/17/2015 LILI DIAMOND, LEV F Ot 784.0 06/18/2015 JOHN PAUL LYLE DO Ot 599.70 07/18/2015 LILI DIAMOND, LEV Karin Ot 784.0 07/25/2015 FATEMEH NATEYOVANY Camilo APRN Ot 611.71 08/06/2015 LILI DIAMOND, LEV F Ot 784.0 08/07/2015 LILI DIAMOND, LEV F Ot 784.0 HEADACHE 08/27/2015 Ot 784.0 08/27/2015 Ot 784.0 08/27/2015 Ot 784.0 08/27/2015 Ot 784.0 08/27/2015 Ot 717.7 08/27/2015 Ot V72.83 08/27/2015 Ot V74.8 08/27/2015 LILI DIAMOND, LEV Frazier Ot 784.0 08/27/2015 SNEHA DIAMOND, JET P Ot 717.2 08/27/2015 SNEHA DIAMOND, JET P Ot 717.7 08/27/2015 SNEHA DIAMOND, JET P Ot 733.92 08/27/2015 SNEHA DIAMOND, JET P Ot V57.1 08/27/2015 SNEHA DIAMOND, JET P Ot 717.3 08/27/2015 SNEHA DIAMOND, JET P Ot 717.7 08/27/2015 SNEHA DIAMOND, JET P Ot V72.84 08/27/2015 SNEHA DIAMOND, JET P Ot V74.8 08/27/2015 LILI DIAMOND, LEV F Ot 784.0 08/27/2015 LILI DIAMOND, LEV Frazier Ot V76.12 08/27/2015 LILI DIAMOND, LEV Frazier Ot 784.0 08/27/2015 LILI DIAMOND, LEV Frazier Ot 784.0 08/27/2015 LILI DIAMOND, LEV Frazier Ot V04.81 08/27/2015 CAITLYN DIAMOND, CAHCE Crowder Ot 459.81 08/27/2015 CAITLYN DIAMOND, CHACE Crowder Ot V72.63 08/27/2015 CAITLYN DIAMOND, CHACE Crowder Ot V74.8 08/27/2015 LILI DIAMOND, LEV Frazier Ot 784.0 08/27/2015 CAITLYN DIAOMND, CHACE M Ot 996.74 08/27/2015 CAITLYN DIAMOND, CHACE M Ot V72.84 08/27/2015 LILI DIAMOND, LEV Frazier Ot 784.0 08/27/2015 LILI DIAMOND, LEV Frazier Ot 784.0 08/27/2015 LILI DIAMOND, LEV Frazier Ot 784.0 08/27/2015 CAITLYN DIAMOND, CHACE M Ot 041.12 08/27/2015 CAITLYN DIAMOND, CHACE M Ot 536.8 08/27/2015 CAITLYN DIAMOND, CHACE M Ot 787.20 08/27/2015 CAITLYN DIAMOND, CHACE M Ot V72.84 08/27/2015 LILI DIAMOND, LEV Frazier Ot 784.0 08/27/2015 LILI DIAMOND, LEV Frazier Ot 346.71 08/27/2015 LILI DIAMOND, LEV Frazier Ot 784.0 08/27/2015 LILI DIAMOND, LEV Frazier Ot 784.0 08/27/2015 LILI DIAMOND, LEV Frazier Ot 784.0 08/27/2015 VALDO SMITH JOHN PAUL K Ot 599.70 08/27/2015 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 Ot 611.71 08/27/2015 LILI DIAMOND, LEV Frazier Ot 784.0 08/27/2015 LILI DIAMOND, LEV Frazier Ot 784.0 08/27/2015 ASHLIE PATE CASH CR[employer] FARMER Ot G47.36 SLEEP RELATED HYPOVENTILATION IN CONDITI 08/27/2015 ASHLIE PATE CASH CROP FARMER Ot R06.83 SNORING 09/17/2015 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 Ot 611.71 10/09/2015 LILI DIAMOND, LEV Frazier Ot 784.0 10/16/2015 LILI DIAMOND, LEV Frazier Ot 784.0 10/21/2015 VALDO DO JOHN PAUL K Ot G89.29 OTHER CHRONIC PAIN 10/21/2015 LYLE DO JOHN PAUL K Ot M54.9 DORSALGIA, UNSPECIFIED 10/21/2015 LYLE DO, JOHN PAUL K Ot M79.7 FIBROMYALGIA 10/21/2015 LYLE DO JOHN PAUL K Ot R19.7 DIARRHEA, UNSPECIFIED 10/21/2015 LYLE DO, JOHN PAUL K Ot R53.82 CHRONIC FATIGUE, UNSPECIFIED 10/21/2015 LYLE DO, JOHN PAUL Lazcano Ot G89.29 10/21/2015 LYLE DO, JOHN PAUL Lazcano Ot M54.9 10/21/2015 LYLE DO, JOHN PAUL Lazcano Ot M79.7 10/21/2015 LYLE DO, OJHN PAUL Lazcano Ot R19.7 10/21/2015 LYLE DO, JOHN PAUL Lazcano Ot R53.82 12/12/2015 LILI DIAMOND, LEV Frazier Ot 784.0 12/13/2015 LILI DIAMOND, LEV Frazier Ot 784.0 12/19/2015 VIKKI DO, ZULEYMA M Ot G43.709 12/19/2015 VIKKI DO, ZULEYMA M Ot G47.10 12/19/2015 VIKKI DO, ZULEYMA M Ot R06.83 12/19/2015 VIKKI DO, ZULEYMA M Ot R09.02 01/01/2016 YOBANI DIAMOND, SANDRA Camilo Ot R31.2 01/08/2016 VIKKI DO, ZULEYMA M Ot G43.709 01/08/2016 VIKKI DO, ZULEYMA M Ot G47.10 01/08/2016 VIKKI DO, ZULEYMA M Ot R06.83 01/08/2016 VIKKI DO, ZULEYMA M Ot R09.02 01/16/2016 VIKKI DO, ZULEYMA M Ot G43.709 01/16/2016 VIKKI DO, ZULEYMA M Ot G47.10 01/16/2016 VIKKI DO, ZULEYMA M Ot R06.83 01/16/2016 VIKKI DO, ZULEYMA M Ot R09.02 01/16/2016 LILI DIAMOND, LEV Frazier Ot G43.719 01/16/2016 LILI DIAMOND, LEV Frazier Ot G43.719 01/18/2016 LILI DIAMOND, LEV Frazier Ot G43.719 02/03/2016 LILI DIAMOND, LEV Frazier Ot R51 02/03/2016 LILI DIAMOND, LEV Frazier Ot G43.719 02/13/2016 LILI DIAMOND, LEV Frazier Ot R51 02/13/2016 LILI DIAMOND, LEV Frazier Ot G43.719 02/13/2016 LILI DIAMOND, LEV Frazier Ot R51 02/13/2016 LILI DIAMOND, LEV Frazier Ot R51 02/15/2016 LILI DIAMOND, LEV Frazier Ot R51 02/19/2016 LILI DIAMOND, LEV Frazier Ot R51 03/04/2016 LILI DIAMOND, LEV [place]ier Ot R51 HEADACHE 03/11/2016 LILI DIAMOND, LEV [place] Ot R51 HEADACHE 03/12/2016 LILI DIAMOND, LEV [place] Ot R51 HEADACHE 03/18/2016 LILI DIAMOND, LEV Frzaier Ot R51 HEADACHE 06/11/2016 LILI DIAMOND, LEV Frazier Ot G43.719 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, INTRACTABLE, 07/03/2016 LILI DIAMOND, LEV Karin Ot G43.719 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, INTRACTABLE, 07/14/2016 LILI DIAMOND, LEV Karin Ot G43.719 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, INTRACTABLE, 08/27/2016 Ot 784.0 HEADACHE 08/27/2016 Ot 784.0 HEADACHE 08/27/2016 Ot 784.0 HEADACHE 08/27/2016 Ot 784.0 HEADACHE 08/27/2016 Ot 717.7 CHONDROMALACIA PATELLAE 08/27/2016 Ot V72.83 EXAM PRE- OPERATIVE NEC 08/27/2016 Ot V74.8 SCREEN- BACTERIAL DIS NEC 08/27/2016 LILI DIAMOND, LEV Karin Ot 784.0 HEADACHE 08/27/2016 SNEHA DIAMOND, JET Crow Ot 717.2 DERANG POST MED MENISCUS 08/27/2016 SNEHA DIAMOND, JET Crow Ot 717.7 CHONDROMALACIA PATELLAE 08/27/2016 SNEHA DIAMOND, JET Crow Ot 733.92 CHONDROMALACIA 08/27/2016 SNEHA DIAMOND, JET Crow Ot V57.1 PHYSICAL THERAPY NEC 08/27/2016 SNEHA DIAMOND, JET Crow Ot 717.3 DERANG MED MENISCUS NEC 08/27/2016 SNEHA DIAMOND, JET Crow Ot 717.7 CHONDROMALACIA PATELLAE 08/27/2016 SNEHA DIAMOND, JET Crow Ot V72.84 EXAM PRE-OPERATIVE NOS 08/27/2016 SNEHA DIAMOND, JET Crow Ot V74.8 SCREEN-BACTERIAL DIS NEC 08/27/2016 LILI DIAMOND, LEV Frazier Ot 784.0 HEADACHE 08/27/2016 LILI DIAMOND, LEV [place]ier Ot V76.12 OTH SCREEN MAMMO-MALIGN NEOPLASM OF LAMONTE 08/27/2016 LILI DIAMOND, LEV [place] Ot 784.0 HEADACHE 08/27/2016 LILI DIAMOND, LEV [place] Ot 784.0 HEADACHE 08/27/2016 LILI DIAMOND, LEV [place] Ot V04.81 ND FOR PROPHYLACTIC VACCIN AND INOCULATI 08/27/2016 CAITLYN DIAMOND, CHACE Crowder Ot 459.81 VENOUS INSUFFICIENCY NOS 08/27/2016 CAITLYN DIAMOND, CHACE Crowder Ot V72.63 PRE-PROCEDURAL LABORATORY EXAMINATION 08/27/2016 CAITLYN DIAMOND, CHACE Crowder Ot V74.8 SCREEN-BACTERIAL DIS NEC 08/27/2016 LILI DIAMOND, LEV Frazier Ot 784.0 HEADACHE 08/27/2016 CAITLYN DIAMOND, CHACE Crowder Ot 996.74 OTH COMPL DUE TO OT VASCULAR DEVICE,IMP 08/27/2016 CAITLYN DIAMOND, CHACE Crowder Ot V72.84 EXAM PRE-OPERATIVE NOS 08/27/2016 LILI DIAMOND, LEV Frazier Ot 784.0 HEADACHE 08/27/2016 LILI DIAMOND, LEV [place] Ot 784.0 HEADACHE 08/27/2016 LEV PEARSON MD Ot 784.0 HEADACHE 08/27/2016 CAITLYN DIAMODN, CHACE Crowder Ot 041.12 METHICILLIN RESISTANT STAPHYLOCOCCUS AUR 08/27/2016 CAITLYN DIAMOND, CHACE Crowder Ot 536.8 STOMACH FUNCTION DIS NEC 08/27/2016 CAITLYN DIAMOND, CHACE Crowder Ot 787.20 DYSPHAGIA, UNSPECIFIED 08/27/2016 CAITLYN DIAMOND, CHACE Crowder Ot V72.84 EXAM PRE-OPERATIVE NOS 08/27/2016 LILI DIAMOND, LEV Frazier Ot 784.0 HEADACHE 08/27/2016 LEV PEARSON MD Ot 346.71 CHRON MGRN W/O AURA W INTRACT MGRN W/O S 08/27/2016 LEV PEARSON MD Ot 784.0 HEADACHE 08/27/2016 LEV PEARSON MD Ot 784.0 HEADACHE 08/27/2016 LEV PEARSON MD Ot 784.0 HEADACHE 08/27/2016 VALDO DOREMINGTONA K Ot 599.70 HEMATURIA, UNSPECIFIED 08/27/2016 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 Ot 611.71 MASTODYNIA 08/27/2016 LEV PEARSON MD Ot 784.0 HEADACHE 08/27/2016 ZULEYMA FLOREZ DO Ot G43.709 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, NOT INTRACTAB 08/27/2016 ZULEYMA FLOREZ DO Ot G47.10 HYPERSOMNIA, UNSPECIFIED 08/27/2016 ZULEYMA FLOREZ DO Ot R06.83 SNORING 08/27/2016 ZULEYMA FLOREZ DO Ot R09.02 HYPOXEMIA 08/27/2016 YOBANI DIAMOND, SANDRA Camilo Ot R31.2 OTHER MICROSCOPIC HEMATURIA 08/27/2016 LILI DIAMOND, LEV Frazier Ot G43.719 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, INTRACTABLE, 08/27/2016 LILI DIAMOND, LEV [place] Ot R51 HEADACHE 08/27/2016 LILI DIAMOND, LEV [place] Ot R51 HEADACHE 08/27/2016 LILI DIAMOND, LEV [place] Ot G43.719 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, INTRACTABLE, 08/28/2016 LEV PEARSON MD Ot Z45.2 ENCOUNTER FOR ADJUSTMENT AND MANAGEMENT 09/29/2016 LEV PEARSON MD Ot Z45.2 ENCOUNTER FOR ADJUSTMENT AND MANAGEMENT 10/08/2016 LEV PEARSON MD Ot Z45.2 ENCOUNTER FOR ADJUSTMENT AND MANAGEMENT 11/25/2016 LEV PEARSON MD Ot Z45.2 ENCOUNTER FOR ADJUSTMENT AND MANAGEMENT 01/04/2017 LEV PEARSON MD Ot Z45.2 ENCOUNTER FOR ADJUSTMENT AND MANAGEMENT 01/04/2017 LEV PEARSON MD Ot Z45.2 ENCOUNTER FOR ADJUSTMENT AND MANAGEMENT 01/04/2017 LEV PEARSON MD Ot Z45.2 ENCOUNTER FOR ADJUSTMENT AND MANAGEMENT 01/04/2017 LEV PEARSON MD Ot Z45.2 ENCOUNTER FOR ADJUSTMENT AND MANAGEMENT 01/04/2017 LEV PEARSON MD Ot Z45.2 ENCOUNTER FOR ADJUSTMENT AND MANAGEMENT 01/11/2017 LEV PEARSON MD Ot Z45.2 ENCOUNTER FOR ADJUSTMENT AND MANAGEMENT 01/28/2017 LEV PEARSON MD Ot Z45.2 ENCOUNTER FOR ADJUSTMENT AND MANAGEMENT 02/05/2017 LEV PEARSON MD Ot Z45.2 ENCOUNTER FOR ADJUSTMENT AND MANAGEMENT 04/04/2017 LEV PEARSON MD Ot Z45.2 ENCOUNTER FOR ADJUSTMENT AND MANAGEMENT 04/28/2017 RIO, ASHLIE R [employer] Ot G47.11 IDIOPATHIC HYPERSOMNIA WITH LONG SLEEP T 08/22/2017 ASHLIE PATE Nain [employer] Ot G47.10 HYPERSOMNIA, UNSPECIFIED 08/22/2017 ASHLIE PATE [employer] Ot G47.36 SLEEP RELATED HYPOVENTILATION IN CONDITI 08/22/2017 ASHLIE PATE Nain [employer] Ot R06.83 SNORING 09/09/2017 ASHLIE PATE Nain [employer] Ot G47.10 HYPERSOMNIA, UNSPECIFIED 09/09/2017 ASHLIE PATE Nain [employer] Ot G47.36 SLEEP RELATED HYPOVENTILATION IN CONDITI 09/09/2017 MERLY PATEKayli Gillette [employer]ER Ot R06.83 SNORING 09/15/2017 MERLY PATEKayli Gillette [employer]ER Ot G47.10 HYPERSOMNIA, UNSPECIFIED 09/15/2017 ASHLIE PATE Nain [employer] Ot G47.36 SLEEP RELATED HYPOVENTILATION IN CONDITI 09/15/2017 MERLY PATEKayli Gillette [employer]ER Ot R06.83 SNORING 10/26/2017 TIRSO OROPEZA BIOSECURITY OFFICER Ot Z12.31 ENCNTR SCREEN MAMMOGRAM FOR MALIGNANT NE 12/07/2017 TIRSO OROPEZA BIOSECURITY OFFICER Ot Z12.31 ENCNTR SCREEN MAMMOGRAM FOR MALIGNANT NE 12/13/2017 TIRSO OROPEZA BIOSECURITY OFFICER Ot Z12.31 ENCNTR SCREEN MAMMOGRAM FOR MALIGNANT NE Procedures Code Description Performed By Performed On [facility]olarsh[facility] Jet Ventura 05/04/2012 J1885 TORADOL INJ 10/24/2012 J2550 PHENERGAN INJECTION UP TO 50 MG 10/24/2012 92183 THERAPUTIC INJ SQ/IM 10/25/2012 J1885 TORADOL INJ 10/28/2012 18960 THERAPUTIC INJ SQ/IM 10/28/2012 J2550 PHENERGAN INJECTION UP TO 50 MG 10/28/2012 00357 THERAPUTIC INJ SQ/IM 11/03/2012 J1885 TORADOL PER 15 MG, INJ KETOROLAC TROMETHAMINE 11/03/2012 J2550 PHENERGAN INJECTION UP TO 50 MG 11/03/2012 J1885 TORADOL INJ 11/09/2012 J2550 PHENERGAN INJECTION UP TO 50 MG 11/09/2012 Orthopedi Cait Carbajal 11/10/2012 90119 JOINT INJECTION- LARGE JOINT (SPECIFY MEDCIN DESCRIPTION) 01/05/2013 69922 A1C (IN-HOUSE) 01/30/2013 88782 JOINT INJECTION- LARGE JOINT (SPECIFY MEDCIN DESCRIPTION) 05/04/2013 Chace Pavon 09/11/2013 03202 H PYLORI (IN-HOUSE) 01/18/2014 Chace Pavon 01/18/2014 64634 ROUTINE VENIPUNCTURE 04/30/2014 2106948 GFR CALC (RESULT ONLY) 04/30/2014 74335 CMP 04/30/2014 38266 VITAMIN D 25-HYDROXY (D2,D3 , TOTAL) 04/30/2014 35650 CBC 04/30/2014 67455 ROUTINE VENIPUNCTURE 08/17/2014 05636 CBC 08/17/2014 19253 VITAMIN D 25-HYDROXY (D2,D3 , TOTAL) 08/17/2014 Results There is no data. Encounters ACCT No. Visit Date/Time Discharge Status Pt. Type Provider Facility Loc./Unit Complaint [id number] 12/21/2014 10:58:00 12/21/2014 23:59:59 CLS Outpatient LEV PEARSON MD [id number] 09/24/2014 09:58:00 09/24/2014 23:59:59 CLS Outpatient LEV PEARSON MD [id number] 08/17/2014 09:43:00 08/17/2014 23:59:59 CLS Outpatient LEV PEARSON MD [id number] 04/30/2014 08:58:00 04/30/2014 23:59:59 CLS Outpatient LEV PEARSON MD [id number] 03/09/2014 12:26:00 03/09/2014 23:59:59 CLS Outpatient AURELIA DELEON MD [id number] 01/18/2014 13:50:00 01/18/2014 23:59:59 CLS Outpatient LEV PEARSON MD [id number] 01/18/2014 13:50:00 01/18/2014 23:59:59 CLS Outpatient LEV PEARSON MD [id number] 10/16/2013 15:26:00 10/16/2013 23:59:59 CLS Outpatient JOHN PAUL LYLE DO [id number] 09/11/2013 15:34:00 09/11/2013 23:59:59 CLS Outpatient LEV PEARSON MD [id number] 05/04/2013 12:43:00 05/04/2013 23:59:59 CLS Outpatient JOHN PAUL LYLE DO [id number] 01/30/2013 15:40:00 01/30/2013 23:59:59 CLS Outpatient LEV PEARSON MD [id number] 01/05/2013 12:55:00 01/05/2013 23:59:59 CLS Outpatient JOHN PAUL LYLE DO Jaleesa [id number] 11/09/2012 14:11:00 11/09/2012 23:59:59 CLS Outpatient JOHN PAUL LYLE DO Jaleesa [id number] 11/03/2012 14:42:00 11/03/2012 23:59:59 CLS Outpatient [id number] 10/28/2012 10:16:00 10/28/2012 23:59:59 CLS Outpatient [id number] 10/24/2012 15:44:00 10/24/2012 23:59:59 [place] [id number] 08/07/2012 00:00:00 08/07/2012 23:59:59 CLS Outpatient [id number] 08/07/2012 00:00:00 08/07/2012 23:59:59 CLS Outpatient JOHN PAUL LYLE DO [id number] 05/04/2013 12:43:00 Document Registration [id number] 04/27/2013 16:05:00 Document Registration [id number] 01/30/2013 15:40:00 Document Registration [id number] 11/11/2017 09:01:00 11/11/2017 23:59:59 CLS Outpatient TIRSO OROPEZA [facility] RAD Z12.31 SCREENING [id number] 04/29/2017 14:00:00 04/29/2017 23:59:59 CLS Outpatient ASHLIE PATE APRN [facility] SLEEP SNORING, NOCTURNAL HYPOXEMIA [id number] 04/05/2017 00:16:00 04/05/2017 23:59:59 CLS Preadmit LEV PEARSON MD [facility] PORT FLUSH [id number] 02/08/2017 13:21:00 04/04/2017 00:01:00 DIS Outpatient LEV PEARSON MD [facility] PORT FLUSH [id number] 08/27/2016 10:51:00 11/25/2016 00:01:00 DIS Outpatient LEV PEARSON MD [facility] PORT FLUSH [id number] 06/08/2016 13:00:00 06/08/2016 23:59:59 CLS Outpatient LEV PEARSON MD [facility] INTRACTABLE HEADACHE [id number] 03/12/2016 00:08:00 03/12/2016 23:59:59 CLS Preadmit LEV PEARSON MD [facility] INTRACTABLE HEADACHE [id number] 12/12/2015 10:05:00 03/11/2016 00:01:00 DIS Outpatient LEV PEARSON MD [facility] INTRACTABLE HEADACHE [id number] 02/13/2016 12:36:00 02/13/2016 23:59:59 CLS Outpatient LEV PEARSON MD [facility] INTRACTABLE HEADACHE [id number] 01/08/2016 13:01:00 01/08/2016 23:59:59 CLS Outpatient LEV PEARSON MD [facility] INTRACTABLE MIGRAINE [id number] 12/18/2015 16:56:00 12/18/2015 23:59:59 CLS Outpatient ZULEYMA FLOREZ DO [facility] RT HYPOXIA EXCSVE SLEEPINESS CHRNC MIGRAINE SNORING [id number] 11/14/2015 09:00:00 11/14/2015 23:59:59 CLS Outpatient SANDRA HILTON MD [facility] RAD MICROHEMATURIA [id number] 10/21/2015 01:25:00 10/21/2015 17:45:00 DIS Inpatient JOHN PAUL LYLE DO [facility] 4TH INTRACTABLE DIARRHEA [id number] 08/26/2015 20:45:00 08/27/2015 06:30:00 DIS Outpatient ASHLIE PATE APRN [facility] SLEEP MAURO [id number] 07/18/2015 09:52:00 08/07/2015 00:01:00 DIS Outpatient LEV PEARSON MD [facility] INTRACTABLE HEADACHE [id number] 07/25/2015 12:38:00 07/25/2015 23:59:59 CLS Outpatient LEV PEARSON MD [facility] INTRACTABLE HEADACHES [id number] 07/04/2015 07:52:00 07/04/2015 23:59:59 CLS Outpatient NATE WELDON YAHAIRA [facility] RAD BILATERAL BREAST PAIN [id number] 03/15/2015 08:45:00 06/13/2015 00:01:00 DIS Outpatient LEV PEARSON MD [facility] INTRACTABLE HEADACHE [id number] 05/21/2015 07:43:00 05/21/2015 23:59:59 CLS Outpatient VALDO SMITH JOHN PAUL Lazcano [facility] RAD STONE SEARCH,RT FLANK PAIN,HEMATURIA [id number] 04/30/2015 12:49:00 04/30/2015 23:59:59 CLS Outpatient LEV PEARSON MD [facility] INTRACTABLE NEAL [id number] 01/08/2015 07:43:00 03/11/2015 00:01:00 DIS Outpatient LEV PEARSON MD [facility] INTRACTABLE HEADACHE [id number] 08/28/2014 12:57:00 11/26/2014 00:01:00 DIS Outpatient LEV PEARSON MD [facility] INTRACTABLE HEADACHE [id number] 10/30/2014 10:40:00 10/30/2014 23:59:59 CLS Outpatient LEV PEARSON MD [facility] INTRACTABLE HEADACHE [id number] 10/15/2014 07:47:00 10/15/2014 09:43:00 DIS Emergency CHAPIN SRINIVASAN MD [facility] ER DIARRHEA [id number] 09/17/2014 12:12:00 09/17/2014 23:59:59 CLS Outpatient LEV PEARSON MD [facility] INTRACTABLE HEADACHE [id number] 07/30/2014 09:45:00 08/19/2014 00:01:00 DIS Outpatient LEV PEARSON MD [facility] INTRACTABLE HEADACHE [id number] 08/06/2014 09:45:00 08/06/2014 23:59:59 CLS Outpatient LEV PEARSON MD [facility] INTRACTABLE HEADACHE [id number] 07/05/2014 09:46:00 07/05/2014 23:59:59 CLS Outpatient LEV PEARSON MD [facility] HEADACHES [id number] 04/04/2014 09:52:00 04/04/2014 16:20:00 DIS Outpatient CHACE BRADY MD [facility] POOR VENOUS ACCESS; DYSPHAGIA [id number] 04/03/2014 09:53:00 04/03/2014 23:59:59 CLS Outpatient CHACE BRADY MD [facility] PREOP POOR VENOUS ACCESS; DYSPHAGIA [id number] 03/27/2014 09:29:00 03/27/2014 23:59:59 CLS Outpatient CHACE BRADY MD [facility] LAB MRSA [id number] 03/07/2014 12:38:00 03/07/2014 23:59:59 CLS Outpatient LEV PEARSON MD [facility] INTRACTABLE HEADACHE [id number] 02/24/2014 02:20:00 02/24/2014 21:33:00 DIS Outpatient MARLEN DIAMOND FACCTAVIA FACP CCDS [facility] CATH CHEST PAIN, LEUKOCYTOSIS [id number] 01/19/2014 08:53:00 01/19/2014 23:59:59 CLS Outpatient LEV PEARSON MD [facility] INTRACTABLE HEADACHE [id number] 12/21/2013 07:54:00 12/21/2013 23:59:59 CLS Outpatient LEV PEARSON MD [facility] INTRACTABLE HEADACHE [id number] 11/25/2013 15:46:00 11/25/2013 18:26:00 DIS Emergency QASIM ACOSTA MD [facility] ER WOUND CHECK [id number] 11/22/2013 07:30:00 11/22/2013 13:35:00 DIS Outpatient CHACE BRADY MD [facility] INFECTED PORT [id number] 11/21/2013 14:57:00 11/21/2013 23:59:59 CLS Outpatient CHACE BRADY MD [facility] PREOP INFECTED PORT [id number] 11/17/2013 07:49:00 11/17/2013 23:59:59 CLS Outpatient LEV PEARSON MD [facility] INTRACTABLE HEADACHE [id number] 10/24/2013 06:02:00 10/24/2013 11:35:00 DIS Outpatient CHACE BRADY MD [facility] POOR VENOUS ACCESS [id number] 10/20/2013 12:59:00 10/20/2013 23:59:59 CLS Outpatient CHACE BRADY MD [facility] PREOP POOR VENOUS ACCESS [id number] 08/30/2013 09:31:00 08/30/2013 23:59:59 CLS Outpatient LEV PEARSON MD [facility] INTRACTABLE HEADACHE [id number] 08/29/2013 11:32:00 08/29/2013 16:00:00 DIS Emergency AARTI DO, CHAYA K [facility] ER VOMITING [id number] 08/14/2013 22:55:00 08/15/2013 02:29:00 DIS Emergency AARTI DO, CHAYA K [facility] ER BILAT LEG PAIN [id number] 07/26/2013 08:58:00 07/26/2013 23:59:59 CLS Outpatient LEV PEARSON MD [facility] INTRACTABLE HEADACHE [id number] 07/11/2013 13:17:00 07/24/2013 11:03:00 DIS Outpatient CAIT CARBAJAL [facility] REHAB S/P B KNEE SURGERY R TMM L SCOPE [id number] 05/29/2013 07:41:00 05/29/2013 23:59:59 CLS Outpatient LEV PEARSON MD [facility] RAD SCREENING,INTRACTABLE HEADACHE [id number] 05/10/2013 08:02:00 05/10/2013 23:59:59 CLS Outpatient JET HOOVER MD [facility] RIGHT KNEE TORN MEDIAL MENISCUS [id number] 05/05/2013 08:11:00 05/05/2013 23:59:59 CLS Outpatient JET HOOVER MD [facility] PREOP RT KNEE CHONDROMALACIA,TORN MEDIAL MENISCUS [id number] 04/22/2013 16:05:00 04/22/2013 17:46:00 DIS Emergency AARTI DO, CHAYA K [facility] ER R SWOLLEN KNEE [id number] 03/10/2013 10:30:00 03/10/2013 23:59:59 CLS Outpatient LEV PEARSON MD [facility] INTRACTABLE HEADACHE [id number] 02/22/2013 07:45:00 Document Registration [id number] 02/21/2013 07:56:00 Document Registration [id number] 02/10/2013 03:05:00 Document Registration [id number] 02/06/2013 22:06:00 Document Registration [id number] 01/12/2013 21:20:00 Document Registration [id number] 12/15/2012 12:27:00 Document Registration [id number] 11/10/2012 10:06:00 Document Registration [id number] 09/16/2012 12:41:00 Document Registration [id number] 07/29/2012 12:45:00 Document Registration [id number] 06/24/2012 13:48:00 Document Registration [id number] 06/23/2012 18:35:00 Document Registration [id number] 06/17/2012 17:05:00 Document Registration [id number] 06/16/2012 15:16:00 Document Registration [id number] 06/04/2012 09:36:00 Document Registration [id number] 06/03/2012 16:10:00 Document Registration [id number] 04/01/2012 07:48:00 Document Registration [id number] 03/31/2012 07:45:00 Document Registration [id number] 01/20/2012 09:42:00 Document Registration [id number] 01/19/2012 22:38:00 Document Registration [id number] 12/15/2011 07:45:00 Document Registration [id number] 11/22/2011 22:17:00 Document Registration [id number] 11/21/2011 08:21:00 Document Registration [id number] 11/23/2017 11:12:01 ACT Unknown [id number] 12/09/2017 13:31:36 12/09/2017 23:59:59 CLS Outpatient BIJU HECK [facility] 901 [id number] 09/02/2017 13:53:58 09/02/2017 23:59:59 CLS Outpatient BIJU HECK [place] [id number] 06/10/2017 13:22:39 06/10/2017 23:59:59 CLS Outpatient BIJU HECK [facility] 90 [id number] 03/18/2017 13:40:36 03/18/2017 23:59:59 CLS Outpatient BIJU HECK [place] [id number] 11/05/2016 13:55:15 11/05/2016 23:59:59 CLS Outpatient BIJU HECK [place] [id number] 09/16/2016 11:43:37 09/16/2016 23:59:59 CLS Outpatient MELVIN DICKEY [place] [id number] 07/22/2016 14:15:31 07/22/2016 23:59:59 [facility] 901 [id number] 07/22/2016 14:04:59 07/22/2016 23:59:59 CLS Outpatient [facility] [place] [id number] 04/23/2016 13:08:08 04/23/2016 23:59:59 [facility] [id number] 04/23/2016 13:07:49 04/23/2016 23:59:59 C[place] Out[place] [facility] [place] [id number] 12/24/2015 13:49:01 12/24/2015 23:59:59 CLS Outpatient [facility] [place] [address] [id number] 12/24/2015 13:34:37 12/24/2015 23:59:59 [facility] [id number] 12/26/2015 14:53:56 Document Registration
== END 2018-01-14 12:05 | disposition home or self-care (01) ==
LOC: SDC 08:27
PROVIDERS: ATTEND Surgery
DX: T82.898A Other specified complication of vascular prosthetic devices, implants and grafts, initial encounter (principal); F43.10 Post-traumatic stress disorder, unspecified; F41.9 Anxiety disorder, unspecified; M79.7 Fibromyalgia; K21.9 Gastro-esophageal reflux disease without esophagitis; R53.82 Chronic fatigue, unspecified; Z98.84 Bariatric surgery status; Z79.899 Other long term (current) drug therapy
CPT/HCPCS: 87081

== ENCOUNTER 2019-07-20 12:56 | Outpatient (RCR) | payer MEDICARE, MEDICAID ==
[~2019-07-20 12:56] MED LIST changes: -DULO60CA58 PO; +DULO60CA59 PO; +GABA800T10 PO; -GABA800T2 PO; -OMEP20CA12 PO; +OMEP20CA13 PO; +OXYC1TAB87 PO; -TIZA4TAB3 PO; +TIZA4TAB4 PO
== END 2019-08-03 13:57 | disposition home or self-care (01) ==
PROVIDERS: ATTEND Internal Medicine
DX: M54.40 Lumbago with sciatica, unspecified side (principal); Z98.84 Bariatric surgery status

== ENCOUNTER → 2019-08-24 | Outpatient (CLI) | payer MEDICARE, MEDICAID ==
--- NOTE | 2019-08-24 14:45 | Diagnostic Imaging Report ---
PROCEDURE: MRI lumbar spine. TECHNIQUE: Multiplanar, multisequence MRI of the lumbar spine was performed without contrast. INDICATION: Back pain as well as right hip and thigh pain. COMPARISON: No prior studies are available for comparison. FINDINGS: Curvature and alignment of the lumbar spine is normal. Vertebral body heights and marrow signal intensity are normal. No geographic marrow lesion or acute compression fracture is detected. There is some mild generalized disc desiccation but disc spaces are fairly well-maintained. The conus is unremarkable at the T12-L1 level. T12-L1: Central canal is widely patent. Neural foramina are patent. L1-T2: Wide-based midline disc bulge indents the ventral thecal sac but no significant central canal narrowing is seen. Neural foramina are widely patent. L2-L3: The central canal and neural foramina are widely patent. L3-L4: Hypertrophic facet changes are noted with ligamentous thickening. Central canal remains patent. Neural foramina are patent. L4-L5: Degenerative facet changes are noted. Central canal is patent. There is mild bilateral neural foraminal narrowing. L5-S1: There is some broad-based disc/osteophyte complex indenting the ventral thecal sac. Central canal remains widely patent. Neural foramina are patent. Paraspinous tissues are unremarkable. IMPRESSION: Generalized lumbar spondylosis and facet arthropathy with mild neural foraminal narrowing described level by level above. No central canal stenosis is seen. No acute compression fracture is identified. Dictated by: Dictated on workstation # [id number]
== END ==
LOC: RAD 13:52
PROVIDERS: ATTEND Internal Medicine
DX: M47.816 Spondylosis without myelopathy or radiculopathy, lumbar region (principal); M48.061 Spinal stenosis, lumbar region without neurogenic claudication; M54.41 Lumbago with sciatica, right side
CPT/HCPCS: 72148

== ENCOUNTER → 2019-10-17 | Outpatient (CLI) | payer MEDICARE, MEDICAID ==
--- NOTE | 2019-10-17 09:15 | Diagnostic Imaging Report ---
INDICATION: Postmenopausal screening for osteoporosis. COMPARISON: None. FINDINGS: AP Spine L1-L4: [BMD (g/cm2): 1.114] [T-Score: -0.7] [Z-Score: -1.2] [BMD Previous: N/A] [BMD % Change: N/A] LT Hip Neck: [BMD (g/cm2): 0.909] [T-Score: -0.9] [Z-Score: -0.7] LT Hip Total: [BMD (g/cm2):0.956] [T-Score:-0.4] [Z-Score: -0.6] [BMD Previous: N/A] [BMD % Change: N/A] RT Hip Neck: [BMD (g/cm2):0.912] [T-Score:-0.9] [Z-Score:-0.7] RT Hip Total: [BMD (g/cm2):0.901] [T-score:-0.8] [Z-Score:-1.1] [BMD Previous:N/A] [BMD % Change:N/A] *Indicates significant change from prior examination based on 95% confidence level. World Health Organization criteria for BMD interpretation classify patients as Normal (T-score at or above -1.0), Osteopenic (T-score between -1.0 and -2.5) or Osteoporotic (T-score at or below -2.5). LIMITATIONS AND MODIFICATION: None. FRACTURE RISK (FRAX SCORE): The ten year probability of (%): Major Osteoporotic Fracture: [N/A] Hip Fracture: [N/A] IMPRESSION: 1. Normal bone mineral density. 2. Baseline examination. 3. See below National Osteoporosis Foundation guidelines on when to potentially initiate pharmacologic therapy. Based on the National Osteoporosis Foundation Guidelines, pharmacologic treatment should be initiated in any of the following, unless clinical conditions suggest otherwise: * Any patient with prior fragility fracture of the hip or vertebrae. A spine fracture indicates 5X risk for subsequent spine fracture and 2X risk for subsequent hip fracture. * Osteoporosis (T-score <-2.5). * Postmenopausal women and men age 50 and older with low bone mass/osteopenia (T-score between -1.0 and -2.5) by DXA and 10-year major osteoporotic fracture greater than 20% or a 10-year probability of hip fracture greater than 3%. These fracture risks are supplied above in the FRAX score, if applicable. * Clinician judgement and/or patient preferences may indicate treatment for people with 10-year fracture probabilities above or below these levels. Dictated by: Dictated on workstation # [id number]
== END ==
LOC: RAD 08:19
PROVIDERS: ATTEND Internal Medicine
DX: Z13.820 Encounter for screening for osteoporosis (principal); Z78.0 Asymptomatic menopausal state
CPT/HCPCS: 77080

== ENCOUNTER 2019-11-10 13:17 | Outpatient (CLI) | payer MEDICARE, MEDICAID ==
[~2019-11-10] VITALS: Ht 157.5 cm; Wt 100.0 kg
[2019-11-10 14:03] VITALS: BP 113/67
[2019-11-10] MEDS ORDERED: DEXTROSE IV ONE ×2 (14:25)
[2019-11-10] MEDS ORDERED: VALPROATE IV ONE ×2 (14:25)
[2019-11-10] MEDS ORDERED: ONDANSETRON 4 MG/2 ML (SDV) Z0FRAN ONE (14:56)
[2019-11-10] MEDS ORDERED: ONDANSETRON 4 MG/2 ML (SDV) Z0FRAN IVP PRN (15:00)
== END 2019-11-10 16:00 | disposition home or self-care (01) ==
LOC: SDC 13:17
PROVIDERS: ATTEND Internal Medicine
DX: G43.719 Chronic migraine without aura, intractable, without status migrainosus (principal)
CPT/HCPCS: 96365

== ENCOUNTER → 2019-11-21 | Outpatient (CLI) | payer MEDICARE, MEDICAID ==
[~2019-11-21] MED LIST changes: +OMEP-280 PO; -OMEP20CA13 PO
--- NOTE | 2019-11-21 12:40 | Diagnostic Imaging Report ---
INDICATION: Routine screening. Comparison is made with prior mammograms from 11/11/2017 and 07/04/2015. 2-D and 3-D bilateral screening mammography was performed. The current study was also evaluated with a Computer Aided Detection (CAD) system. 3-D tomosynthesis was also performed and reviewed. FINDINGS: Scattered fibroglandular densities are identified bilaterally. The parenchymal pattern is stable. No mass or malignant-appearing microcalcifications are seen. Axillae are unremarkable. IMPRESSION: No mammographic features suspicious for malignancy are identified. ACR BI-RADS Category 1: Negative. Result letter will be mailed to the patient. Note: At least 10% of breast cancer is not imaged by mammography. Dictated by: Dictated on workstation # [id number]
== END ==
LOC: RAD 08:48
PROVIDERS: ATTEND Internal Medicine
DX: Z12.31 Encounter for screening mammogram for malignant neoplasm of breast (principal); Z00.00 Encounter for general adult medical examination without abnormal findings
CPT/HCPCS: 77067

== ENCOUNTER → 2020-01-16 | Outpatient (CLI) | payer MEDICARE, MEDICAID ==
[~2020-01-16] MED LIST changes: -OMEP-280 PO; +OMEP20CA18 PO
--- NOTE | 2020-01-16 14:38 | Diagnostic Imaging Report ---
INDICATION: Gastroparesis. Patient was administered 1.0 mCi technetium 99m sulfur colloid labeled to a test meal. Imaging over the abdomen was performed. Time of half emptying is significantly delayed measuring up to approximately 250 minutes. The normal values are typically 30 to 90 minutes. IMPRESSION: Delayed gastric emptying. Dictated by: Dictated on workstation # [id number]
== END ==
LOC: CARD 06:45
DX: K31.84 Gastroparesis (principal)
CPT/HCPCS: 78264

== ENCOUNTER → 2020-04-23 | Outpatient (CLI) | payer MEDICARE, MEDICAID ==
[~2020-04-23] VITALS: Ht 156 cm; Wt 130.0 kg
[~2020-04-23] MED LIST changes: +DEXTROSE IV ONE; -OXYC-529 PO; +OXYC5TAB96 PO; +VALPROATE IV ONE
[2020-04-23 12:57] VITALS: BP 125/60
== END ==
LOC: SDC 09:46
PROVIDERS: ATTEND Internal Medicine
DX: G43.719 Chronic migraine without aura, intractable, without status migrainosus (principal)
CPT/HCPCS: 96365

== ENCOUNTER 2020-08-27 09:16 | Outpatient (CLI) | payer MEDICARE, MEDICAID ==
[~2020-08-27] VITALS: Ht 154.9 cm
[~2020-08-27 09:16] MED LIST changes: -DEXTROSE IV ONE; +OXC5T PO; -OXYC5TAB96 PO; -PANT40TA3 PO; +PANT40TA52 PO; -VALPROATE IV ONE
[2020-08-27 09:25] VITALS: BP 116/90
[2020-08-27] MEDS ORDERED: VALPROATE IV ONE ×2 (09:30)
[2020-08-27] MEDS ORDERED: DEXTROSE IV ONE ×2 (09:30)
--- NOTE | 2020-08-27 09:40 | NUR ---
DR. PEARSON'S OFFICE CALLED AT THIS TIME PER PT. REQUEST. SHE STATED SHE USUALLY GETS PHENERGAN WITH INFUSION. NEW ORDER FOR PHENERGAN 25 MG. IM X [address] PEARSON/RB TELEPHONE ORDER.
[2020-08-27] MEDS ORDERED: PROMETHAZINE INJ 25 MG/ML (PHENERGAN) AMP IM/IV ONE (09:45)
[2020-08-27] MEDS ORDERED: PROMETHAZINE INJ 25 MG/ML (PHENERGAN) AMP ONE (09:46)
[2020-08-27] MEDS: CATHETER FLUSH 10 ML SYR IV PRN ×2 (10:06→11:04)
== END 2020-08-27 11:06 | disposition home or self-care (01) ==
LOC: SDC 09:16
PROVIDERS: ATTEND Internal Medicine
DX: G43.719 Chronic migraine without aura, intractable, without status migrainosus (principal)
CPT/HCPCS: 90471; 96365

== ENCOUNTER 2020-11-13 08:42 | Outpatient (CLI) | payer MEDICARE, MEDICAID ==
[~2020-11-13] VITALS: Ht 154.9 cm
[2020-11-13] MEDS ORDERED: DEXTROSE IV ONE ×2 (09:00)
[2020-11-13] MEDS ORDERED: VALPROATE IV ONE ×2 (09:00)
[2020-11-13] MEDS ORDERED: PROMETHAZINE INJ 25 MG/ML (PHENERGAN) AMP IM ONE (09:00)
[2020-11-13 10:03] VITALS: BP 112/69
== END 2020-11-13 10:03 | disposition home or self-care (01) ==
LOC: SDC 08:42
PROVIDERS: ATTEND Internal Medicine
DX: G43.719 Chronic migraine without aura, intractable, without status migrainosus (principal)
CPT/HCPCS: 96365; 96372

== ENCOUNTER 2021-01-08 13:00 | Outpatient (CLI) | payer MEDICARE, MEDICAID ==
[~2021-01-08] VITALS: Ht 157.5 cm; Wt 108.2 kg
[2021-01-08] MEDS ORDERED: VALPROATE IV ONE ×2 (13:15)
[2021-01-08] MEDS ORDERED: DEXTROSE IV ONE ×2 (13:15)
[2021-01-08] MEDS ORDERED: ONDANSETRON 4 MG/2 ML (SDV) Z0FRAN IV PRN (13:30)
[2021-01-08 14:55] VITALS: BP 114/77
== END 2021-01-08 14:55 | disposition home or self-care (01) ==
LOC: SDC 13:00
PROVIDERS: ATTEND Internal Medicine
DX: G43.819 Other migraine, intractable, without status migrainosus (principal)
CPT/HCPCS: 96365; 96374

== ENCOUNTER 2021-03-26 14:12 | Outpatient (CLI) | payer MEDICARE, MEDICAID ==
[~2021-03-26] VITALS: Ht 157 cm; Wt 108.2 kg
[2021-03-26 13:55] VITALS: BP 137/84
[2021-03-26] MEDS ORDERED: ONDANSETRON 4 MG/2 ML (SDV) Z0FRAN IVP PRN (14:45)
[2021-03-26] MEDS ORDERED: VALPROATE INJ (NON-FORMULARY) 1,000 MG in D5W 100 ML IVPB 100 ML IV ONE (14:45)
== END 2021-03-26 16:10 ==
LOC: SDC 14:12
PROVIDERS: ATTEND Internal Medicine
DX: G43.819 Other migraine, intractable, without status migrainosus (principal)

== ENCOUNTER → 2021-05-20 | Outpatient (CLI) | payer MEDICARE, MEDICAID ==
[~2021-05-20] VITALS: Ht 158 cm; Wt 97.0 kg
[~2021-05-20] MED LIST changes: +CATHETER FLUSH 10 ML SYR IV PRN; +DEXTROSE IV ONE; +ONDANSETRON 4 MG/2 ML (SDV) Z0FRAN IVP PRN; +ONDANSETRON 4 MG/2 ML (SDV) Z0FRAN ONE; +VALPROATE IV ONE
[2021-05-20 10:23] VITALS: BP 138/83
== END ==
LOC: SDC 09:51
PROVIDERS: ATTEND Internal Medicine
DX: G43.919 Migraine, unspecified, intractable, without status migrainosus (principal)
CPT/HCPCS: 96365; 96374

== ENCOUNTER 2021-07-17 16:27 | Emergency (ER) | payer MEDICARE, MEDICAID ==
[~2021-07-17] VITALS: Ht 157.5 cm; Wt 101.6 kg
[~2021-07-17 16:27] MED LIST changes: -CATHETER FLUSH 10 ML SYR IV PRN; -DEXTROSE IV ONE; -ONDANSETRON 4 MG/2 ML (SDV) Z0FRAN IVP PRN; -ONDANSETRON 4 MG/2 ML (SDV) Z0FRAN ONE; -VALPROATE IV ONE
--- NOTE | 2021-07-17 17:07 | Diagnostic Imaging Report ---
PROCEDURE: CT head and CT cervical spine without contrast. TECHNIQUE: Multiple contiguous axial images were obtained through the brain and cervical spine without the use of intravenous contrast. Sagittal and coronal reformations through the cervical spine were then performed. Auto Exposure Controls were utilized during the CT exam to meet ALARA standards for radiation dose reduction. INDICATION: Fall with head and neck injuries with pain. CT HEAD: CT images of the head were obtained. FINDINGS: Ventricles and sulci are within normal limits for size. There is no intracranial hemorrhage identified. There is no abnormal mass effect or shift of midline structures. IMPRESSION: Unremarkable CT of the head. CT CERVICAL SPINE: Multiple contiguous axial CT images of the cervical spine were obtained with sagittal and coronal reformatted images produced. FINDINGS: There is loss of normal cervical lordosis. Vertebral body heights and disc spaces are maintained. Prevertebral soft tissues are unremarkable, and there is no evidence of paraspinous hematoma. Cervical spondylosis is present. IMPRESSION: Loss of normal cervical lordosis which may be due to positioning or muscle spasm. There is, otherwise, no CT evidence of acute cervical spinal abnormality. Dictated by: Dictated on workstation # [id number]
--- NOTE | 2021-07-17 17:11 | ED General ---
General Chief Complaint: General Problems/Pain Stated Complaint: NEEDS CT Source of Information: Patient Exam Limitations: No Limitations History of Present Illness Date Seen by Provider: Jul 17, 2021 Time Seen by Provider: 17:11 Initial Comments Sent to ER from [facility]. She accompanied her to physical therapy yesterday when the corner of a rug was elevated and caused her to trip and fall face first. Loss of consciousness. She followed with [facility] today due to headache that she was having. They referred her to the emergency room for CT evaluation as she had some difficulty concentrating and nausea with headache. No anticoagulant use. Timing/Duration: 1-2 Days Severity: Moderate Modifying Factors: improves with Rest Associated Systoms: Headaches, Nausea/Vomiting Allergies and Home Medications Allergies Coded Allergies: Sulfa (Sulfonamide Antibiotics) (Verified Allergy, Mild, 01/13/18) adhesive (Verified Allergy, Mild, RASH, 01/13/18) bupropion HCl (Verified Allergy, Unknown, HIVES, 01/13/18) sulfamethoxazole (Verified Allergy, Unknown, BREAKS OUT, 01/13/18) trimethoprim (Verified Allergy, Unknown, BREAKS OUT, 01/13/18) Tetanus Vaccines and Toxoid (Verified Adverse Reaction, Unknown, 01/13/18) Patient Home Medication List Home Medication List Reviewed: Yes Doxepin HCl (Doxepin HCl) 50 Mg Capsule, 50 MG PO HS, (Reported) Entered as Reported by: MARGARETH BETANCOURT on 01/13/18 1038 Duloxetine HCl (Duloxetine HCl) 60 Mg Capsule.dr 60 MG PO BID, (Reported) Entered as Reported by: MARGARETH BETANCOURT on 01/13/18 1038 Fentanyl (Duragesic Patch 25MCG) 1 Each Patch.td72, 25 MCG TD Q72H, (Reported) Entered as Reported by: MARGARETH BETANCOURT on 01/13/18 1038 Midodrine HCl (Midodrine HCl) 2.5 Mg Tablet, 2.5 MG PO TID, (Reported) Entered as Reported by: MARGARETH BETANCOURT on 01/13/18 1038 Mirabegron (Myrbetriq) 50 Mg Tab.er.24h, 50 MG PO DAILY, (Reported) Entered as Reported by: MARGARETH BETANCOURT on 01/13/18 1038 Omeprazole (Omeprazole) 20 Mg Capsule., 20 MG PO BID, (Reported) Entered as Reported by: MARGARETH BETANCOURT on 01/13/18 1038 Oxycodone HCl/Acetaminophen (Percocet 5-325 mg Tablet) 1 Each Tablet, 1-2 TAB PO Q4H PRN for PAIN-MILD TO MODERATE Prescribed by: ISABEL BRADY on 01/14/18 1014 Oxycodone Hcl (Oxyir Tablet) 5 Mg Tablet, 5 MG PO TID, (Reported) Entered as Reported by: MARGARETH BETANCOURT on 01/13/18 1038 Pantoprazole Sodium (Pantoprazole Sodium) 40 Mg Tablet., 40 MG PO DAILY, (Reported) Entered as Reported by: MARGARETH BETANCOURT on 01/13/18 1038 Tizanidine HCl (Tizanidine HCl) 4 Mg Tablet, 8 MG PO BID, (Reported) Entered as Reported by: KISHA LUZ on 10/21/15 0914 Review of Systems Review of Systems Constitutional: see HPI EENTM: see HPI Respiratory: no symptoms reported Cardiovascular: no symptoms reported Gastrointestinal: nausea Genitourinary: no symptoms reported Musculoskeletal: no symptoms reported Skin: no symptoms reported Psychiatric/Neurological: See HPI, Headache Hematologic/Lymphatic: No Symptoms Reported Immunological/Allergic: no symptoms reported Past Tjxkaml-Jqatju-Vmotba Hx Patient Social History Tobacco Use?: No Smoking Status: Never a Smoker Use of E-Cig and/or Vaping dev: No Substance use?: No Alcohol Use?: No Pt feels they are or have been: No Immunizations Up To Date Tetanus Booster (TDap): Unknown First/Initial COVID19 Vaccinat: 01/17/2021 Second COVID19 Vaccination Jose A: 02/14/2021 COVID19 Vaccine Rn Managed Care: MODERNA Seasonal Allergies Seasonal Allergies: Yes Past Medical History Surgeries: Yes Appendectomy, Gallbladder, Hysterectomy, Tubal Ligation Respiratory: No Sleep Apnea Headaches /Migraines Reproductive Disorders: No Female Reproductive Disorders: Ovarian Cyst [employer] SPECIALIST History: Hysterectomy Sexually Transmitted Disease: No HIV/AIDS: No Gastroesophageal Reflux, Ulcer Degenerate Disk Disease, Arthritis, Fibromyalgia, Chronic Back Pain Loss of Vision: Bilateral Hearing Impairment: Denies What Type of Treatment Did You: Surgical Intervention Anxiety, PTSD, Depression Adverse Reaction/Blood Tranf: No Family Medical History Cancer 03 MOTHER Family history: Allergy 03 MOTHER Family history: Diabetes mellitus 03 FATHER AUNT Family history: Hypertension 03 FATHER 09 BROTHER Family history: Thyroid disorder 03 MOTHER Heart disease 03 FATHER Hypercholesterolemia 03 FATHER 03 MOTHER 09 BROTHER 09 BROTHER 09 BROTHER 09 BROTHER Myocardial infarction GRANDFATHER Physical Exam Vital Signs Vital Signs - First Documented 07/17/21 16:37 Temp 36.2 Pulse 98 Resp 18 B/P (MAP) 184/107 (132) Pulse Ox 97 O2 Delivery Room Air Capillary Refill : Height, Weight, BMI Height: 5'2.00" Weight: 200lbs. 8.0oz. [id number]; 36.7 BMI Method:Stated General Appearance: No Apparent Distress, WD/WN Eyes: Bilateral Eye Normal Inspection, Bilateral Eye PERRL, Bilateral Eye EOMI HEENT: PERRL/EOMI, TMs Normal, Normal ENT Inspection, Other (There is some ecchymosis over the bridge of the nose. No epistaxis. No evidence of globe injury no periorbital ecchymosis. Extraocular muscles are intact. Pupils are equal. Very pleasant. Alert and oriented no distress.) Neck: Full Range of Motion, Normal Inspection Respiratory: No Accessory Muscle Use, No Respiratory Distress Gastrointestinal: Non Tender, Soft Extremity: Normal Capillary Refill, Normal Inspection Neurologic/Psychiatric: Alert, Oriented x3 Skin: Normal Color, Warm/Dry Progress/Results/Core Measures Suspected Sepsis SIRS Temperature: Pulse: Respiratory Rate: Blood Pressure / Mean: Results/Orders My Orders Orders - HAMMAD JOHNS APRN Ct Head/Cervical Spine Wo (07/17/21 16:41) Vital Signs/I&O 07/17/21 16:37 Temp 36.2 Pulse 98 Resp 18 B/P (MAP) 184/107 (132) Pulse Ox 97 O2 Delivery Room Air Capillary Refill : Departure Communication (Admissions) Family Conversation Patient states that she has Zofran at home to use. NAME: AMYFAIZA Ton [facility] REC#: [id number] PT STATUS: REG ER : 1965 PHYSICIAN: HAMMAD JOHNS APRN ADMIT DATE: 07/17/21/ER Draft Date of Exam:07/17/21 CT HEAD/CERVICAL SPINE WO PROCEDURE: CT head and CT cervical spine without contrast. TECHNIQUE: Multiple contiguous axial images were obtained through the brain and cervical spine without the use of intravenous contrast. Sagittal and coronal reformations through the cervical spine were then performed. Auto Exposure Controls were utilized during the CT exam to meet ALARA standards for radiation dose reduction. INDICATION: Fall with head and neck injuries with pain. CT HEAD: CT images of the head were obtained. FINDINGS: Ventricles and sulci are within normal limits for size. There is no intracranial hemorrhage identified. There is no abnormal mass effect or shift of midline structures. IMPRESSION: Unremarkable CT of the head. CT CERVICAL SPINE: Multiple contiguous axial CT images of the cervical spine were obtained with sagittal and coronal reformatted images produced. FINDINGS: There is loss of normal cervical lordosis. Vertebral body heights and disc spaces are maintained. Prevertebral soft tissues are unremarkable, and there is no evidence of paraspinous hematoma. Cervical spondylosis is present. IMPRESSION: Loss of normal cervical lordosis which may be due to positioning or muscle spasm. There is, otherwise, no CT evidence of acute cervical spinal abnormality. Dictated on workstation # [id number] Dict: 07/17/21 1704 Trans: 07/17/21 1707 [id number] Interpreted by: EMRE BENÍTEZ MD Electronically signed by: Impression Primary Impression: Concussion Additional Impression: Contusion, nose Disposition: 01 HOME, SELF-CARE Condition: Stable Departure-Patient Inst. Decision time for Depature: 17:32 Referrals: LEV PEARSON MD (PCP) Primary Care Physician [facility] [place] ([place]) Primary Care Physician Patient Instructions: Concussion, Adult ED, Minor Contusion ED Add. Discharge Instructions: . Try not to blow your nose for 1 to 2 weeks in case there is a nondisplaced nasal bone fracture that is not seen on CT. If you have any nasal congestion you can use Afrin nasal spray. Ice pack to the nose with help with bruising and pain. Tylenol and ibuprofen for headache. Nausea medication as needed. You were diagnosed with concussion and facial contusion. HAMMAD JOHNS MICROFABRICATION ENGINEER MANAGER Jul 17, 2021 17:11
[2021-07-17 17:37] VITALS: BP 184/107
== END 2021-07-17 17:38 | disposition home or self-care (01) ==
LOC: EDUNIT# 16:27 → ER 16:29
DX: S06.0X9A Concussion with loss of consciousness of unspecified duration, initial encounter (principal); S00.33XA Contusion of nose, initial encounter; G47.30 Sleep apnea, unspecified; K21.9 Gastro-esophageal reflux disease without esophagitis; G89.29 Other chronic pain; M54.9 Dorsalgia, unspecified; F41.9 Anxiety disorder, unspecified; F32.9 Major depressive disorder, single episode, unspecified; Z79.891 Long term (current) use of opiate analgesic; Z79.899 Other long term (current) drug therapy; W01.0XXA Fall on same level from slipping, tripping and stumbling without subsequent striking against object, initial encounter
CPT/HCPCS: 70450; 72125

== ENCOUNTER → 2021-08-07 | Outpatient (CLI) | payer MEDICARE, MEDICAID ==
[~2021-08-07] MED LIST changes: +CATHETER FLUSH 10 ML SYR IV PRN; +DEXTROSE IV ONE; +ONDANSETRON 4 MG/2 ML (SDV) Z0FRAN IV PRN; +PROMETHAZINE INJ 25 MG/ML (PHENERGAN) AMP IM ONE; +PROMETHAZINE INJ 25 MG/ML (PHENERGAN) AMP ONE; +VALPROATE IV ONE
[2021-08-07 11:49] VITALS: BP 112/72
== END ==
LOC: SDC 09:38
PROVIDERS: ATTEND Internal Medicine
DX: G43.719 Chronic migraine without aura, intractable, without status migrainosus (principal)
CPT/HCPCS: 96365

== ENCOUNTER 2021-08-25 10:03 | Outpatient (RCR) | payer MEDICARE, MEDICAID ==
[~2021-08-25 10:03] MED LIST changes: -CATHETER FLUSH 10 ML SYR IV PRN; -DEXTROSE IV ONE; -ONDANSETRON 4 MG/2 ML (SDV) Z0FRAN IV PRN; -PROMETHAZINE INJ 25 MG/ML (PHENERGAN) AMP IM ONE; -PROMETHAZINE INJ 25 MG/ML (PHENERGAN) AMP ONE; +SUMA6CAR; -SUMA6KIT2; +TIZA-186 PO; -TIZA4TAB4 PO; -VALPROATE IV ONE
== END 2021-10-24 08:43 | disposition home or self-care (01) ==
PROVIDERS: ATTEND Orthopaedic Surgery Sports Medicine
DX: Z96.651 Presence of right artificial knee joint (principal)

== ENCOUNTER 2021-09-10 12:59 | Outpatient (CLI) | payer MEDICARE, MEDICAID ==
[~2021-09-10] VITALS: Wt 101.6 kg
[~2021-09-10 12:59] MED LIST changes: -SUMA6CAR; +SUMA6KIT2; -TIZA-186 PO; +TIZA4TAB4 PO
[2021-09-10 13:15] VITALS: BP 118/83
[2021-09-10] MEDS ORDERED: VALPROATE IV NR ×2 (13:30)
[2021-09-10] MEDS ORDERED: DEXTROSE IV NR ×2 (13:30)
[2021-09-10] MEDS ORDERED: PROMETHAZINE INJ 25 MG/ML (PHENERGAN) AMP IM PRN (13:30)
== END 2021-09-10 14:46 ==
LOC: SDC 12:59
PROVIDERS: ATTEND Internal Medicine
DX: G43.919 Migraine, unspecified, intractable, without status migrainosus (principal)
CPT/HCPCS: 96365

== ENCOUNTER → 2021-09-23 | Outpatient (CLI) | payer MEDICARE, MEDICAID ==
[~2021-09-23] MED LIST changes: +CATHETER FLUSH 10 ML SYR IV PRN; +DEXTROSE IV NR; +ONDANSETRON 4 MG/2 ML (SDV) Z0FRAN IVP PRN; +ONDANSETRON 4 MG/2 ML (SDV) Z0FRAN ONE; +VALPROATE IV NR
[2021-09-23 12:45] VITALS: BP 134/87
== END ==
LOC: SDC 12:32
PROVIDERS: ATTEND Internal Medicine
DX: G43.919 Migraine, unspecified, intractable, without status migrainosus (principal)
CPT/HCPCS: 96365; 96374

== ENCOUNTER → 2021-11-18 | Outpatient (CLI) | payer MEDICARE, MEDICAID ==
[~2021-11-18] MED LIST changes: -CATHETER FLUSH 10 ML SYR IV PRN; -DEXTROSE IV NR; -ONDANSETRON 4 MG/2 ML (SDV) Z0FRAN IVP PRN; -ONDANSETRON 4 MG/2 ML (SDV) Z0FRAN ONE; +SUMA6CAR; -SUMA6KIT2; +TIZA-186 PO; -TIZA4TAB4 PO; -VALPROATE IV NR
--- NOTE | 2021-11-18 11:14 | Diagnostic Imaging Report ---
INDICATION: Postmenopausal screening COMPARISON: 10/17/2019 FINDINGS: AP Spine L1-L4: [BMD (g/cm2): 1.151] [T-Score: -0.4] [Z-Score: -0.7] [BMD Previous: 1.114] [BMD % Change: 3.3] LT Hip Neck: [BMD (g/cm2): 0.889] [T-Score: -1.1] [Z-Score: -0.8] LT Hip Total: [BMD (g/cm2):0.914] [T-Score:-0.7] [Z-Score: -0.9] [BMD Previous: 0.956] [BMD % Change: -4.4] RT Hip Neck: [BMD (g/cm2):0.922] [T-Score:-0.8] [Z-Score:-0.5] RT Hip Total: [BMD (g/cm2):0.896] [T-score:-0.9] [Z-Score:-1.0] [BMD Previous:0.901] [BMD % Change:-0.6] *Indicates significant change from prior examination based on 95% confidence level. World Health Organization criteria for BMD interpretation classify patients as Normal (T-score at or above -1.0), Osteopenic (T-score between -1.0 and -2.5) or Osteoporotic (T-score at or below -2.5). LIMITATIONS AND MODIFICATION: None. FRACTURE RISK (FRAX SCORE): The ten year probability of (%): Major Osteoporotic Fracture: [NA] Hip Fracture: [NA] IMPRESSION: 1. Normal bone mineral density. 2. No significant change in bone mineral density since prior examination. 3. See below National Osteoporosis Foundation guidelines on when to potentially initiate pharmacologic therapy. Based on the National Osteoporosis Foundation Guidelines, pharmacologic treatment should be initiated in any of the following, unless clinical conditions suggest otherwise: * Any patient with prior fragility fracture of the hip or vertebrae. A spine fracture indicates 5X risk for subsequent spine fracture and 2X risk for subsequent hip fracture. * Osteoporosis (T-score <-2.5). * Postmenopausal women and men age 50 and older with low bone mass/osteopenia (T-score between -1.0 and -2.5) by DXA and 10-year major osteoporotic fracture greater than 20% or a 10-year probability of hip fracture greater than 3%. These fracture risks are supplied above in the FRAX score, if applicable. * Clinician judgement and/or patient preferences may indicate treatment for people with 10-year fracture probabilities above or below these levels. Dictated by: Dictated on workstation # [id number]
== END ==
LOC: RAD 08:30
PROVIDERS: ATTEND Internal Medicine
DX: Z78.0 Asymptomatic menopausal state (principal); Z79.52 Long term (current) use of systemic steroids
CPT/HCPCS: 77080

== ENCOUNTER 2022-04-23 13:16 | Outpatient (CLI) | payer MEDICARE, MEDICAID ==
[~2022-04-23] VITALS: Ht 157.5 cm; Wt 102.7 kg
[2022-04-23] MEDS ORDERED: VALPROATE IV ONE ×2 (13:45)
[2022-04-23] MEDS ORDERED: DEXTROSE IV ONE ×2 (13:45)
[2022-04-23] MEDS ORDERED: ONDANSETRON 4 MG/2 ML (SDV) Z0FRAN IV ONE (13:45)
[2022-04-23 13:49] VITALS: BP 146/75
== END 2022-04-23 15:05 ==
LOC: SDC 13:16
PROVIDERS: ATTEND Internal Medicine
DX: G43.919 Migraine, unspecified, intractable, without status migrainosus (principal)
CPT/HCPCS: 96365; 96374